=== PATIENT | female | born 1945 | race Caucasian/White ===

== ENCOUNTER 2016-08-07 12:32 | Inpatient (IN) | payer OTHER, MEDICARE ==
[~2016-08-07] VITALS: Ht 154.9 cm; Wt 52.2 kg
[~2016-08-07 12:32] MED LIST: ASPIRIN EC81 M1 PO; ATORVASTATIN CA40 M1 PO; CELEXA10 M1 PO; CENTRUM SILVER1 EAC3 PO; CITALOPRAM HBR20 MG PO; COUMADIN2.5 M1 PO; COZAAR25 M1 PO; DEXAMETHASONE4 M1 PO; HYDROCHLOROTH12.5 M2 PO; HYDROCODONE-HO473 ML PO; LASIX20 M1 PO; LIPITOR80 M1 PO; LOSARTAN POTAS100 M1 PO; LOVENOX80 MG/0.1 SC; METOPROLOL SUCC50 M2 PO; MORPHINE SULFAT15 M4 PO; PANTOPRAZOLE SO40 M1 PO; VERAPAMIL ER240 M1 PO
--- NOTE | 2016-08-07 13:00 | NUR ---
PT TO ROOM22 FOR C/O SOB SINCE THIS MORNING, O2SAT 97% ON RA, PT SPEAKS FULL SENTENCES, VSS, PT DENIES CHEST PAIN,ABD PAIN,N/V/D. AAOx3. HX OF LUNG CA, HNT,CVA. MARAL MARIE AT BEDSIDE FOR PT EVAL.
--- NOTE | 2016-08-07 13:14 | NUR ---
PT EVALUATED BY MD CARSON
--- NOTE | 2016-08-07 13:18 | ED DYSPNEA/ASTHMA COMPLAINT ---
History of Present Illness General Chief Complaint: Dyspnea (COPD, CHF, Other) Stated Complaint: SOB Source: patient, family, old records Exam Limitations: no limitations Vital Signs & Intake/Output Vital Signs & Intake/Output Vital Signs Date Time Temp Pulse Resp B/P Pulse O2 O2 Flow FiO2 Ox Delivery Rate 08/09 0934 95 120/80 08/09 0931 95 120/80 08/09 0921 98.2 95 20 120/80 91 Nasal 1.5L Cannula 08/09 0827 95 Nasal 2.0L Cannula 08/09 0800 91 Nasal 2.0L Cannula 08/08 2231 95 Nasal 2.0L Cannula 08/08 2200 97.8 78 20 110/70 96 08/08 1530 98.2 91 20 102/60 91 Nasal 2.0L Cannula ED Intake and Output 08/09 0000 08/08 1200 Intake Total 1392.3 304 Output Total Balance 1392.3 304 Intake, IV 122.3 104 Intake, Oral 1270 200 Allergies Coded Allergies: oxycodone (From Percocet) (UNKNOWN 12/01/15) PERCOCET PER ANTIBIOTIC ORDER SHEET OF 12/01/15 ([facility]) Triage Note: PT TO ROOM22 FOR C/O SOB SINCE THIS MORNING, O2SAT 97% ON RA, PT SPEAKS FULL SENTENCES, VSS, PT DENIES CHEST PAIN,ABD PAIN,N/V/D. AAOx3. HX OF LUNG CA, HNT,CVA. MARAL MARIE AT BEDSIDE FOR PT EVAL. Triage Nurses Notes Reviewed? yes Onset: Abrupt Duration: hour(s): (6), constant Timing: recent history Severity: moderate Prior Episodes/Possible Cause: occasional episodes Modifying Factors: Worsens With: movement. Associated Symptoms: denies HPI: 71 Year old female with history of lung ca undergoing radiation, with mets to brain, hypertension, hyperlipidemia, presents emergency room for evaluation today with family complaining of sudden onset shortness of breath that came on earlier this morning. She states that she used her 's albuterol nebulizer twice with mild improvement. The patient states that she has had intermittent outs of hemoptysis most recent lesion yesterday. The patient was radiation every day, and she is scheduled to go for a port in to be and chemotherapy next week. Patient denies any chest pain or pain with inspiration. The dyspnea is worse with exertion. She denies any leg swelling, fever chills she is currently Lovenox injections at home daily. Oncology is Dr. MARA Beck allergy Dr. Spaulding (FRANK ALICIA,AGGIE) Reconcile Medications Aspirin (Ecotrin*) 81 MG TABLET.DR 1 TAB PO DAILY HEART/BLOOD (Reported) Atorvastatin Calcium (Lipitor) 80 MG TABLET 1 TAB PO DAILY CHOLESTEROL ( Reported) Citalopram Hydrobromide (Citalopram HBr) (Unknown Strength) TABLET (Unknown Dose) PO DAILY MENTAL HEALTH (Reported) Enoxaparin Sodium (Lovenox) 80 MG/0.8 ML SYRINGE 0.8 ML SC DAILY BLOOD THINNER (Reported) Furosemide (Lasix) 20 MG TABLET 3 TAB PO DAILY DIURETIC (Reported) Hydrocodone Bit/Homatrop Me-Br (Hydrocodone-Homatropine Syrup) (Unknown Strength ) SYRUP (Unknown Dose) PO Q4H PRN COUGH (Reported) Losartan Potassium (Cozaar) 25 MG TABLET 0.5 TAB PO DAILY HEART/BP (Reported) Metoprolol Succinate 50 MG TAB.ER.24H 1 TAB PO DAILY HEART/BP (Reported) Morphine Sulfate 15 MG TABLET 1 TAB PO Q4H PRN PAIN (Reported) Multivit-Min/FA/Lycopen/Lutein (Centrum Silver Tablet) 0.4 MG-300 MCG-250 MCG TABLET 1 TAB PO DAILY SUPPLEMENT (Reported) Pantoprazole Sodium 40 MG TABLET. 1 TAB PO DAILY GI (Reported) (CARSON LEON,YANET) Past History Travel History Traveled to [place] past 21 day No Medical History Any Pertinent Medical History? 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 No (AGGIE MONTEJO) Review of Systems Review of Systems Constitutional: Reports: see HPI. All Other Systems: Reviewed and Negative Comments Review of systems: See HPI, All other systems negative. Constitutional, no chills no fever, no malaise HEENT: No visual changes no sore throat no congestion, no ear pain Cardiovascular: No chest pain , no palpitation , no orthopnea no ankle swelling Skin, no rashes, no change in skin Respiratory: dyspnea no cough no sputum hemoptysis GI: No nausea no vomiting, no diarrhea, no bloating/constipation : No dysuria Muscle skeletal: No joint pain, no back pain, no neck pain, Neurologic: No numbness no headache Psych: No stress Heme/endocrine: No bruising no bleeding Immunology: No lymphadenopathy (AGGIE MONTEJO) Physical Exam Physical Exam General Appearance: well developed/nourished, alert, awake Respiratory: normal breath sounds, chest non-tender, no respiratory distress, lungs clear Comments: Well-developed well-nourished person in no acute distress HEENT: Normal EENT exam; PERRL, EOMI, HEAD is atraumatic. moist mucous membranes. Neck: Supple, no lymphadenopathy, normal range of motion Back: Nontender, no CVA tenderness. Full range of motion Cardiovascular: Regular rate and rhythms no murmurs rubs Respiratory: Chest nontender.There were no bony deformities, no asymmetry. No respiratory distress. Patient speaking in full complete sentences. Breath sounds clear to auscultation bilaterally: NO W/R/R Abdomen: Soft, nontender nondistended, no appreciable organomegaly. Normal bowel sounds. No rebound/guarding,, No ascites. Extremity: No edema, full range of motion of extremities Neuro: Alert oriented x3, motor sensory normal, Skin: No appreciable rash on exposed skin, skin is warm and dry. Psych: Mood and affect is normal, memory and judgment is normal. Core Measures ACS in differential dx? Yes Severe Sepsis Present: No Septic Shock Present: No (AGGIE MONTEJO) Progress Differential Diagnosis: asthma, AMI, bronchitis, costochondritis, CHF, COPD, musculoskeletal pain, pericarditis, pulmonary embolism, pneumonia, pneumothorax, unstable angina Plan of Care: Orders Procedure Date/time Status Change service to 08/09 1032 Active Change service to 08/09 0841 Active PT Evaluate & Treat 08/09 UNK Active Therapeutic Exercise 08/09 UNK Complete PT Eval 08/09 UNK Complete Gait Training 08/09 UNK Complete OXYGEN 08/08 UNK Complete OXYGEN DAILY CHARGE 08/08 UNK Complete OXYGEN SETUP CHG 08/07 UNK Complete OXYGEN 08/07 UNK Complete OXYGEN TRANSPORT 08/07 UNK Complete Current Medications Sig/Georgi Start time Last Medication Dose Stop Time Status Admin Albuterol Sulfate 3 ML Q4P PRN 08/08 1400 AC (Proventil) Senna/Docusate Sodium 1 TAB BID PRN 08/08 1246 AC (Senokot S) Bisacodyl 5 MG DAILY NEEDED PRN 08/08 1200 AC (Dulcolax) Laboratory Tests 08/09/16 0610: Anion Gap 11, Estimated GFR > 60, BUN/Creatinine Ratio 15.7, Magnesium 1.7, CBC w Diff NO MAN DIFF REQ, RBC 3.22 L, MCV 93.1, MCH 31.3 H, RDW 16.9 H, MPV 7.8 , Gran % 76.1 H, Lymphocytes % 11.8 L, Monocytes % 9.4 H, Eosinophils % 2.3, Basophils % 0.4, Absolute Granulocytes 6.0, Absolute Lymphocytes 0.9 L, Absolute Monocytes 0.7 H, Absolute Eosinophils 0.2, Absolute Basophils 0, PUBS MCHC 33.6 Labs ordered old records reviewed. Case was discussed with Dr. Arriaga who evaluated the patient and agrees with plan 08/07/2016 2:25:29 PM patient's room and states she is feeling short of breath noted be 98% on 2 L lungs are clear, DuoNeb ordered Patient feeling improved I discussed with her and her family called the CAT scan findings and incidental findings. The patient states her breathing has been improved since being medicated with Xanax. Case was discussed with Dr. Arriaga. Heparin ordered case discussed with Dr. EGAN WILL ADMIT (FRANK ALICIA,AGGIE) Diagnostic Imaging: Viewed by Me: CT Scan. Discussed w/RAD: CT Scan. Radiology Impression: PATIENT: ALISIA WILBURN PRESENT AGE: 71 PATIENT ACCOUNT NO: [id number] : 44 LOCATION: [facility] ORDERING PHYSICIAN: AGGIE ALICIA SERVICE DATE: 08/07/16 EXAM TYPE: CAT - CT ABD ANGIOGRAM; CTA CHEST-PULMONARY EMBOLISM EXAMINATION: CTA CHEST AND ABDOMEN CLINICAL INFORMATION: History of abdominal aortic aneurysm. Dyspnea. Evaluate for dissection. COMPARISON: Previous chest, abdomen and pelvis CTA June 2016 and PET/CT June 2016. TECHNIQUE: Axial images through the chest, abdomen and pelvis following 95 mL Optiray 320 intravenous contrast. Sagittal and coronal reconstructions on the technologist workstation were performed. Patient dose 219 + 255 mGy/cm. FINDINGS: There is mild dilatation of the ascending thoracic aorta , measuring 4 x 4.1 cm. This appears unchanged. The aortic arch measures 2.5 cm in the descending thoracic aorta measures 2.8 cm. There is some thrombus seen in the anterior distal descending thoracic aorta. No thoracic aortic dissection is seen. There is again question of chronic dissection of the proximal abdominal aorta. The thrombus are unopacified segment of the proximal abdominal aorta appears increased compared to June 2016 exam, for example axial image 21 series 3 compared to axial image 61 series 8. The size of the aorta does not appear changed measuring 3.2 x 2.7 cm. There is fusiform dilatation of the more inferior mid and distal abdominal aorta. The circumferential thrombus in the mid and distal abdominal aorta appears increased as well, for example axial image 32 series, 3 compared to axial image 73 series 06/14/2016 exam. The size of the mid and distal abdominal aorta does not appear changed measuring maximum 3 x 3 cm. There is direct origin of the left vertebral artery from the aortic arch. Great vessel origins are patent. The pulmonary arteries are upper normal in size. There is narrowing of the left lower lobe pulmonary artery from adenopathy. There is a small filling defect seen in subsegmental posterior basal segment right lower lobe pulmonary arteries axial image 300-310 series 2 suggestive of a small pulmonary embolus. This is against the wall of the vessel and may not be acute. No other evidence of pulmonary embolism is seen. There is an arcuate type stenosis of the celiac axis. The SMA is patent. The JOAQUIN is not identified. 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 There is a single patent left renal artery. The visualized common iliac arteries are normal in caliber and patent. CHEST: The lesion in the superior segment of the left lower lobe is slightly decreased in size. This measures 1.2 x 1.6 cm compared to 1.3 x 2.9 cm on previous exam. There is increasing volume loss to the left upper lobe and lingular atelectasis. There is an increasing 8 mm right lower lobe nodule along the diaphragmatic pleural surface. There is increasing mediastinal and left hilar adenopathy in the left paratracheal and precarinal regions. There is increased narrowing of the left upper lobe bronchus. There is narrowing of the left lower lobe pulmonary artery from increasing left hilar adenopathy. There is coronary artery calcification. There is no pleural or pericardial effusion. No chest wall mass or axillary adenopathy is seen. ABDOMEN: The liver, spleen, pancreas, and adrenal glands are unremarkable. The gallbladder has been removed. The right kidney appears atrophic. There are several right renal cysts. There is evidence of mild diverticulosis. Small and large bowel is otherwise unremarkable. There is diastasis of the rectus muscles. Small and large bowel is unremarkable. No ascites or adenopathy is seen. There is a lytic lesion in the left iliac crest that is partially visualized on the most inferior image axial image 52 series 3 and 414-416 series 2 that is increased. There is permeative lytic disease involving the tip of the right scapula. There is a lytic lesion in the anterior superior endplate of the T4 vertebral body that appears increased. There is a small lytic lesion in the T9 vertebral body that appears new. There are increasing faint sclerotic lesions in the L1 and L2 vertebral bodies. There is also question of several new small lytic lesions, for example in the L3 vertebral body axial image 31 series 3 and the left iliac bone axial image 47 series 3. IMPRESSION: Stable dilatation of the ascending thoracic aorta. No acute thoracic aortic dissection. Question old chronic dissection of the proximal abdominal aorta. This is stable in size with increasing thrombus compared to June 2016 exam. 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 The size of the aortic dilatation does not appear appreciably changed measuring maximum 3 x 3.2 cm. 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 Arcuate type celiac axis stenosis. Narrowed left lower lobe pulmonary artery from increasing adenopathy. Small subsegmental posterior basal segment right lower lobe pulmonary emboli. CHEST: Interval decrease in size in the superior segment left lower lobe nodule compared to June 2016. There is increasing left-sided mediastinal and hilar adenopathy. There is increased narrowing of the left upper lobe bronchus and left upper lobe atelectasis. Increasing right lower lobe pulmonary nodule. ABDOMEN: Diastasis of the rectus muscles. Atrophic right kidney. Right renal cysts. Interval increase in size and number of bony lesions compared to previous CT. Findings were communicated to Aggie Marie by telephone 08/07/2016 at 4:13 PM. DICTATED BY: MANUEL LEON,ILIANA Fischer DATE/TIME DICTATED:08/07/161454 CLIENT RELATIONS SPECIALIST:ERICA DATE/TIME TRANSCRIBED:08/07/161454 CONFIDENTIAL, DO NOT COPY WITHOUT APPROPRIATE AUTHORIZATION. <Electronically signed in Other Vendor System> SIGNED BY: ILIANA JACKSON MD 08/07/16 1621 Initial ED EKG: NSR AT 90, NONSPECIFIC ST SEG CHANGES, NORMAL AXIS Prior EKG: unchanged (06/2016) Rhythm Strip: normal sinus rhythm (AGGIE MONTEJO) Departure Departure Time of Disposition: 163 Disposition: STILL A PATIENT Condition: Stable Clinical Impression Primary Impression: Pulmonary embolus Secondary Impressions: Aortic aneurysm, Lesion of lung Referrals: CONLEY JOSÉ MIGUEL LEON (PCP/Family) Referred to [facility] as new patient No Departure Forms: Customer Survey General Discharge Information Admission Note Spoke With: EZKE EGAN M.D Documentation of Exam: Documentation of any treatments & extenuating circumstances including Concerns Regarding Discharge (functional status, medication knowledge or non-compliance, living conditions, etc.) that warrant an admission rather than observation: Pulmonology cardiology oncology consult IV heparin trend labs premature discharge medically harmful given new pulmonary embolism (AGGIE MONTEJO) PA/COUPLER Co-Sign Statement Statement: ED Attending supervision documentation- [X] I saw and evaluated the patient. I have also reviewed all the pertinent lab results and diagnostic results. I agree with the findings and the plan of care as documented in the PA's/COUPLER's documentation. [X] I have reviewed the ED Record and agree with the PA's/COUPLER's documentation. [] Additions or exceptions (if any) to the PAs/COUPLER's note and plan are summarized below: [] (CARSON LEON,YANET) Critical Care Note Critical Care Note Critical Care Time: non-applicable (AGGIE MONTEJO)
[2016-08-07 14:01] LABS: ABSOLUTE BASOPHIL COUNT 0 /CUMM (0.0-0.2); ABSOLUTE EOSINOPHIL COUNT 0 /CUMM (0.0-0.7); ABSOLUTE GRANULOCYTE CT 7.8 /CUMM (1.4-6.5); ABSOLUTE MONOCYTE COUNT 0.6 /CUMM (0.10-0.60); BASOPHIL % 0.1 % (0.0-2.0); EOSINOPHIL % 0.4 % (0-5); GRANULOCYTE % 82.7 % (42.2-75.2); HEMATOCRIT 32.8 % (37-47); MEAN CORPUSCULAR HGB 31.2 PG (27.0-31.0); MEAN CORPUSCULAR HGB CONC 33.6 G/DL (33.0-37.0); MEAN CORPUSCULAR VOLUME 92.9 FL (81.0-99.0); MEAN PLATELET VOLUME 7.6 FL (7.4-10.4); PLATELET COUNT 477 /CUMM (130-400); RBC DISTRIBUTION WIDTH 16.5 % (11.5-14.5); RED BLOOD CELL CT 3.53 /CUMM (4.20-5.40); WHITE BLOOD CELL COUNT 9.4 /CUMM (4.8-10.8)
[2016-08-07 14:04] LABS: PT 10.7 SEC (9.4-12.5); PTT 24 SEC (25-37)
--- NOTE | 2016-08-07 14:21 | NUR ---
RESP AT BEDSIDE FOR TX.
--- NOTE | 2016-08-07 14:41 | NUR ---
PT TO CAT SCAN BY STRETCHER.
--- NOTE | 2016-08-07 16:21 | CT SCAN REPORT ---
EXAMINATION: CTA CHEST AND ABDOMEN CLINICAL INFORMATION: History of abdominal aortic aneurysm. Dyspnea. Evaluate for dissection. COMPARISON: Previous chest, abdomen and pelvis CTA June 2016 and PET/CT June 2016. TECHNIQUE: Axial images through the chest, abdomen and pelvis following 95 mL Optiray 320 intravenous contrast. Sagittal and coronal reconstructions on the technologist workstation were performed. Patient dose 219+ 255 mGy/cm. FINDINGS: There is mild dilatation of the ascending thoracic aorta, measuring 4 x 4.1 cm. This appears unchanged. The aortic arch measures 2.5 cm in the descending thoracic aorta measures 2.8 cm. There is some thrombus seen in the anterior distal descending thoracic aorta. No thoracic aortic dissection is seen. There is again question of chronic dissection of the proximal abdominal aorta. The thrombus are unopacified segment of the proximal abdominal aorta appears increased compared to June 2016 exam, for example axial image 21 series 3 compared to axial image 61 series 8. The size of the aorta does not appear changed measuring 3.2 x 2.7 cm. There is fusiform dilatation of the more inferior mid and distal abdominal aorta. The circumferential thrombus in the mid and distal abdominal aorta appears increased as well, for example axial image 32 series, 3 compared to axial image 73 series 06/14/2016 exam. The size of the mid and distal abdominal aorta does not appear changed measuring maximum 3 x 3 cm. There is direct origin of the left vertebral artery from the aortic arch. Great vessel origins are patent. The pulmonary arteries are upper normal in size. There is narrowing of the left lower lobe pulmonary artery from adenopathy. There is a small filling defect seen in subsegmental posterior basal segment right lower lobe pulmonary arteries axial image 300-310 series 2 suggestive of a small pulmonary embolus. This is against the wall of the vessel and may not be acute. No other evidence of pulmonary embolism is seen. There is an arcuate type stenosis of the celiac axis. The SMA is patent. The JOAQUIN is not identified. 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 There is a single patent left renal artery. The visualized common iliac arteries are normal in caliber and patent. CHEST: The lesion in the superior segment of the left lower lobe is slightly decreased in size. This measures 1.2 x 1.6 cm compared to 1.3 x 2.9 cm on previous exam. There is increasing volume loss to the left upper lobe and lingular atelectasis. There is an increasing 8 mm right lower lobe nodule along the diaphragmatic pleural surface. There is increasing mediastinal and left hilar adenopathy in the left paratracheal and precarinal regions. There is increased narrowing of the left upper lobe bronchus. There is narrowing of the left lower lobe pulmonary artery from increasing left hilar adenopathy. There is coronary artery calcification. There is no pleural or pericardial effusion. No chest wall mass or axillary adenopathy is seen. ABDOMEN: The liver, spleen, pancreas, and adrenal glands are unremarkable. The gallbladder has been removed. The right kidney appears atrophic. There are several right renal cysts. There is evidence of mild diverticulosis. Small and large bowel is otherwise unremarkable. There is diastasis of the rectus muscles. Small and large bowel is unremarkable. No ascites or adenopathy is seen. There is a lytic lesion in the left iliac crest that is partially visualized on the most inferior image axial image 52 series 3 and 414-416 series 2 that is increased. There is permeative lytic disease involving the tip of the right scapula. There is a lytic lesion in the anterior superior endplate of the T4 vertebral body that appears increased. There is a small lytic lesion in the T9 vertebral body that appears new. There are increasing faint sclerotic lesions in the L1 and L2 vertebral bodies. There is also question of several new small lytic lesions, for example in the L3 vertebral body axial image 31 series 3 and the left iliac bone axial image 47 series 3. IMPRESSION: Stable dilatation of the ascending thoracic aorta. No acute thoracic aortic dissection. Question old chronic dissection of the proximal abdominal aorta. This is stable in size with increasing thrombus compared to June 2016 exam. 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 The size of the aortic dilatation does not appear appreciably changed measuring maximum 3 x 3.2 cm. 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 Arcuate type celiac axis stenosis. Narrowed left lower lobe pulmonary artery from increasing adenopathy. Small subsegmental posterior basal segment right lower lobe pulmonary emboli. CHEST: Interval decrease in size in the superior segment left lower lobe nodule compared to June 2016. There is increasing left-sided mediastinal and hilar adenopathy. There is increased narrowing of the left upper lobe bronchus and left upper lobe atelectasis. Increasing right lower lobe pulmonary nodule. ABDOMEN: Diastasis of the rectus muscles. Atrophic right kidney. Right renal cysts. Interval increase in size and number of bony lesions compared to previous CT. Findings were communicated to Roverto Santana by telephone 08/07/2016 at 4:13 PM.
--- NOTE | 2016-08-07 17:17 | NUR ---
PT ADMITTED TO ROOM 209-2
--- NOTE | 2016-08-07 17:43 | Admission Certification ---
Admission Certification Certification Statement - As attending physician, I certify that at the time of - admission, based on clinical presentation, severity of - symptoms, need for further diagnostic testing and - therapeutic interventions, and risk of adverse outcomes - without in-hospital treatment, in my clinical assessment, - this patient requires an acute hospital stay for a minimum - of two nights or longer. I have also considered psychsocial - factors such as support system, advanced age, financial - issues, cognitive issues, and failed out-patient treatments, - past re-admission history, safety of patient, and lack of - compliance as applicable. Specific rationale supporting this admission is: Patient requires intravenous heparin for management of her pulmonary embolism. She requests further evaluation by the oncology and pulmonary service.
--- NOTE | 2016-08-07 17:59 | History & Physical ---
NATO COMBS MD 08/07/16 1758: General Information and [facility] MD Statement: I have seen and personally examined ALISIA WILBURN and documented this H&P. The patient is a 71 year old F who presented with a patient stated chief complaint of [shortness of breath with episode of intermittent hemoptysis]. 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 At the beginning of July 2016 patient underwent repeat MRI for brain metastases and found to have brain arterial clot and as per hematology patient anticoagulation was switched to Lovenox. Patient was at her usual health up until last Monday, when she underwent her fourth radiation treatment for her shoulder after which she complained of epigastric discomfort and was started on Magic mouthwash with significant symptom improvement. Patient has been having chronic nonproductive cough with intermittent hemoptysis for possible 2 months due to her underlying lung cancer. Yesterday night she got more short of breath than usual with subsequent improvement in her symptoms. This morning she remained short of breath and received 2 albuterol nebulizer treatment with minimal symptom improvement. This afternoon she had a little amount of soup and lunch after which she started feeling nauseous and had small non-bloody vomiting. Due to her persistent shortness of breath and nausea patient was brought in to ER for further evaluation. In ER, patient noted having mild shortness of breath with no residual nausea or vomiting. Her O2 sat noted 95% on room air. Due to history of lung cancer patient underwent CTA of abdomen and chest noted with right lower lobe pulmonary artery subsegmental PE with worsening tumor burden, also noted atrophic right kidney with chronic right renal artery occlusion. Patient denied any chest pain, palpitation, dizziness, lightheadedness, nausea, vomiting, abdominal pain, urinary symptoms one time of interview. Patient's family was at bedside. As per patient's patient supposed to finish 10 radiation treatment for her shoulder lesion by 16 of August and scheduled to have port placement for chemotherapy on 08/17/2016. Patient's oncologist is Dr. Curry Radiation oncologist Dr. Gracia Gravel Weigher Dr. Spaulding Allergies/Medications Allergies: Coded Allergies: oxycodone (From Percocet) (UNKNOWN 12/01/15) PERCOCET PER ANTIBIOTIC ORDER SHEET OF 12/01/15 (SJS) Home Med list Aspirin (Ecotrin*) 81 MG TABLET.DR 1 TAB PO DAILY HEART/BLOOD (Reported) Atorvastatin Calcium (Lipitor) 80 MG TABLET 1 TAB PO DAILY CHOLESTEROL ( Reported) Citalopram Hydrobromide (Citalopram HBr) (Unknown Strength) TABLET (Unknown Dose) PO DAILY MENTAL HEALTH (Reported) Enoxaparin Sodium (Lovenox) 80 MG/0.8 ML SYRINGE 0.8 ML SC DAILY BLOOD THINNER (Reported) Furosemide (Lasix) 20 MG TABLET 3 TAB PO DAILY DIURETIC (Reported) Hydrocodone Bit/Homatrop Me-Br (Hydrocodone-Homatropine Syrup) (Unknown Strength ) SYRUP (Unknown Dose) PO Q4H PRN COUGH (Reported) Losartan Potassium (Cozaar) 25 MG TABLET 0.5 TAB PO DAILY HEART/BP (Reported) Metoprolol Succinate 50 MG TAB.ER.24H 1 TAB PO DAILY HEART/BP (Reported) Morphine Sulfate 15 MG TABLET 1 TAB PO Q4H PRN PAIN (Reported) Multivit-Min/FA/Lycopen/Lutein (Centrum Silver Tablet) 0.4 MG-300 MCG-250 MCG TABLET 1 TAB PO DAILY SUPPLEMENT (Reported) Pantoprazole Sodium 40 MG TABLET. 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 Exam & Diagnostic Data Last 24 Hrs of Vital Signs/I&O Vital Signs Date Time Temp Pulse Resp B/P Pulse O2 O2 Flow FiO2 Ox Delivery Rate 08/07 1902 98.0 99 20 142/87 99 Nasal 2.0L Cannula 08/07 1557 95 16 160/76 94 Nasal 2.0L Cannula 08/07 1433 95 Nasal 2.0L Cannula 08/07 1256 96.2 91 20 150/79 97 Room Air Intake & Output 08/07 1600 08/07 0800 08/07 0000 Intake Total Output Total Balance Patient 115 lb Weight Physical Exam General Appearance Alert, Oriented X3, Cooperative, Mild Distress Skin No Rashes HEENT Atraumatic, PERRLA, EOMI, Mucous Membr. moist/pink Neck Supple Cardiovascular Regular Rate, Normal S1, Normal S2, No Murmurs Lungs Normal Air Movement, occasional wheezing on lung exam Abdomen Normal Bowel Sounds, Soft, No Tenderness Neurological Normal Speech, Strength at 5/5 X4 Ext, Normal Tone, Sensation Intact, Cranial Nerves 3-12 NL Extremities No Edema, Normal Pulses Vascular Normal Pulses, Pulses Symmetrical Last 24 Hrs of Labs/Yusuf: Laboratory Tests 08/07/16 1340: Anion Gap 14, Estimated GFR > 60, BUN/Creatinine Ratio 17.5, Glucose 152 H, Calcium 9.0, Total Bilirubin 0.5, AST 30, ALT 48, Alkaline Phosphatase 190 H, Troponin I 0.04, Wpv-O-Dvgqoyfmrtk Pept 2510 H, Total Protein 6.1 L, Albumin 3.5, Globulin 2.6, Albumin/Globulin Ratio 1.3, PT 10.7, INR 1.02, APTT 24 L, CBC w Diff NO MAN DIFF REQ, RBC 3.53 L, MCV 92.9, MCH 31.2 H, RDW 16.5 H, MPV 7.6, Gran % 82.7 H, Lymphocytes % 10.4 L, Monocytes % 6.4, Eosinophils % 0.4, Basophils % 0.1, Absolute Granulocytes 7.8 H, Absolute Lymphocytes 1.0 L, Absolute Monocytes 0.6, Absolute Eosinophils 0, Absolute Basophils 0, PUBS MCHC 33.6 Diagnostic Data EKG Results Normal sinus rhythm with heart rate of 96, normal axis, unchanged inferior T- wave flattening and Q-wave, lateral T-wave inversion less prominent than previous EKG, QTC [address] ABD ANGIOGRAM; CTA CHEST-PULMONARY EMBOLISM: Stable dilatation of the ascending thoracic aorta. No acute thoracic aortic dissection. Question old chronic dissection of the proximal abdominal aorta. This is stable in size with increasing thrombus compared to June 2016 exam. 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 The size of the aortic dilatation does not appear appreciably changed measuring maximum 3 x 3.2 cm. 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 Arcuate type celiac axis stenosis. Narrowed left lower lobe pulmonary artery from increasing adenopathy. Small subsegmental posterior basal segment right lower lobe pulmonary emboli. CHEST: Interval decrease in size in the superior segment left lower lobe nodule compared to June 2016. There is increasing left-sided mediastinal and hilar adenopathy. There is increased narrowing of the left upper lobe bronchus and left upper lobe atelectasis. Increasing right lower lobe pulmonary nodule. ABDOMEN: Diastasis of the rectus muscles. Atrophic right kidney. Right renal cysts. Interval increase in size and number of bony lesions compared to previous CT. Assessment/Plan Assessment: This is 71-year-old female with past medical history of stage IV non-small cell lung cancer with metastases to brain status post gamma knife radiation, bony metastatic disease status post 10 cycle of radiation treatment for lower back and ongoing /10 radiation treatment for shoulder with most recent radiation on 08/05/2016, history of recently diagnosed occult Sobo cardiomyopathy with intraoperative cardiac clot resulting in cerebellar hematoma treated with warfarin and subsequently diagnosed with brain artery occlusion requiring to change anticoagulation to Lovenox, who has chronic cough with hemoptysis for past 2 months due to underlying lung condition presented from home after an episode of mild shortness of breath with an episode of nausea and one episode of nonbloody vomiting found to have subsegmental PE without no significant hypoxia on admission are no significant clot burden suggestive of incidental finding rather than clinical pulmonary embolism. 1. Pulmonary embolism Patient did not have any significant hypoxia, tachypnea or tachycardia on admission and her history of recent blood clots in her heart resulting in cerebellar stroke and subsequently found to have brain artery clot requiring to change anticoagulation to Lovenox and now CTAs finding of subsegmental PE, likely suggest incidental finding of pulmonary embolism of indeterminant age rather than acute PE as patient was on therapeutic dose of Lovenox. Less likely Lovenox failure as intact case one would see larger clot burden than smaller. - Admitted to telemetry - Supplement O2 - TRC - Patient was started on IV heparin GTT as per ER, will continue IV heparin GTT but most likely patient needs to switch back to her therapeutic Lovenox treatment. We'll touch base with him with oncology For the recommendation - Nonurgent him on consult 2. History of Takotsubo cardiomyopathy with EF of 25% - Continue anticoagulation - Continue metoprolol - Cardiology consult in a.m., repeat echo as per cardiology discretion - Serial troponin and EKG - Continue aspirin 3. Hypertension - Continue home dose losartan and metoprolol 4. Hyperlipidemia Continue Lipitor 80 mg 5. History of stroke Continue aspirin and statin 6. Hypokalemia Repleat potassium 7. DVT prophylaxis IV heparin As Ranked By This Provider Problem List: 1. Pulmonary embolus Core Measures/Miscellaneous Acute Coronary Syndrome ACS Diagnosis: No Cerebrovascular Accident CVA/TIA Diagnosis: No Congestive Heart Failure CHF Diagnosis: Yes Date of most recent Echo: 06/08/16 Last Known EF %: 25 LILIA/ARB for EF <40%: Yes Venous Thromboembolism VTE Risk Factors: Age > 40, Malignancy Myelo Disorder VTE Prophylaxis Ordered Inpt: Pharm- Heparin No [facility] VTE prophylaxis d/t: No contraindications No VTE Pharm Prophylaxis d/t: No contraindications VTE Diagnosis: Yes VTE Type: Pulmonary Embolism VTE Confirmed by (Test): CT CHEST ANGIOGRAM Severe Sepsis Severe Sepsis Present: No BC x2: Yes Lactic Acid x2: Yes IV ABX Broad Spectrum: Yes Septic Shock Septic Shock Present: No Miscellaneous Documentation Attending Case Discussed With: ZEKE EGAN M.D Primary Care Physician: JOSÉ MIGUEL CONLEY MD Patient sees these Specialists Oncology Dr. Curry Radiation oncology Dr. Gracia Cardiology Dr. Spaulding Level of Patient Care: Telemetry Consults Needed: 1 Consulting Specialty: Hematology/Oncology Consulting Physician: Dr. Curry Reason for Consult: stage IV lung cancer Consults Needed: 2 Consulting Specialty: Cardiology Consulting Physician: Dr. Spaulding Reason for Consult: takotsubo cardiomyopathy Resident Review Statement Resident Statement: examined this patient, discussed with family, reviewed EMR data (avail), reviewed images, amended to note Other Findings: see HPI ZEKE EGAN MD 08/07/16 1811: Attending Review Statement Attending Statement Attending MD Statement: examined this patient, discuss w/resident/PA/MINES SAFETY ENGINEER, agreed w/resident/PA/MINES SAFETY ENGINEER, discussed with family, reviewed EMR data (avail), discussed with nursing, amended to note Attending Assessment/Plan: 71-year-old female recently diagnosed with pulmonary carcinoma with diffuse mental stasis. He status post 10 sessions of radiation therapy to the lumbosacral area for bone metastases has received 4 out of 10 sessions of radiation therapy to the upper chest wall negative for metastatic disease. Reports that since discharge from the hospital last month she has been lethargic. She has had a nonproductive cough since then. Family reports that patient occasionally becomes acutely short of breath however this at base spontaneously and with use of bronchodilator therapy. She has similar episodes overnight but more frequently according to the . This morning she became nauseous and had an episode of small amount of vomitus which point decided to bring her to the hospital for evaluation. There has been no report of fever or chills. She denies any chest pain. She denies difficulty swallowing. She is also on anticoagulation therapy with Lovenox due to thromboembolic disease. She arrived to the ER afebrile and hemodynamically stable. CT scan was done for further evaluation and revealed Interval decrease in size in the superior segment left lower lobe nodule compared to June 2016. There is increasing left-sided mediastinal and hilar adenopathy. There is increased narrowing of the left upper lobe bronchus and left upper lobe atelectasis. Increasing right lower lobe pulmonary nodule. Interval increase in size and number of bony lesions compared to previous CT. Small subsegmental posterior basal segment right lower lobe pulmonary emboli. Based on the CT scan finding of pulmonary embolism, patient was started on intravenous heparin by the ER staff and referred to the hospitalist service for further evaluation and management. Whenever the to the patient and her father resting comfortably and not in any acute distress. When questioned about her dyspnea she admits to feeling short of breath on and off but reported feeling well present. She complains of occasional cough. She denies chest pain. She denies palpitations. She denies any dysphagia or odynophagia. She denies any fever or chills. She is scheduled to complete her radiation therapy next week and begin chemotherapy thereafter with Eyal Robins MD. Gen. appearance: Not in acute distress Heart: S1-S2 regular Lungs: Fair entry bilaterally, no added sounds Abdomen: Soft, nontender with normal bowel sounds Extremities: No pedal edema Skin: Intact with no rashes Neurologic: Alert and erythematous 3 with no focal deficits. Also noted on her CT scan are question of old chronic dissection of the proximal abdominal aorta stable in size with increasing thrombosis. Stable abdominal aortic aneurysm with increasing thrombosis. Atrophic right kidney and chronically occluded right renal artery. Celiac axis stenosis. Narrowed left lower lobe pulmonary artery from increase in adenopathy. Problems: 1. Dyspnea; likely secondary to underlying pulmonary malignancy. 2. Incidental finding of small subsegmental pulmonary embolism. 3. Metastatic cancer 4. Chronic pain syndrome secondary to above. 5. Diffuse thrombotic disease on anticoagulation with Lovenox Plan: -Admit to the inpatient general medical service. -Continue oxygen supplementation for symptom relief. Bronchodilator therapy with CRC. -Recommend evaluation by the pulmonary and oncology service. -The small subsegmental pulmonary embolism finding appears to be incidental and less likely the cause of her recurrent shortness of breath. The acuity of the pulmonary embolism is unclear. This does not appear to be a clear case of anticoagulation failure. She however has been started on heparin infusion in the emergency room. We will continue this regimen until evaluation by the oncology service. She will likely continue to require anticoagulation therapy with Lovenox upon discharge. -Family reports occasional incidents of hemoptysis of small amount. I hemoglobin level is stable. We'll continue to monitor while she receives anticoagulation therapy. -Continue her home pain regimen. The inpatient on a bowel regimen to prevent opioid-induced constipation. -Patient to follow-up with her oncologist service to discuss further goals of care. Family reports having had an extensive conversation with Eyal Robins MD on 2 occasions quite recently. As at the time of the conversation thier desire was to pursue palliative radiation therapy and chemotherapy.
--- NOTE | 2016-08-07 19:30 | NUR ---
PER REPORT PT NOW TO GO TO TELE. HEPARIN DRIP INFUSING.
--- NOTE | 2016-08-07 19:30 | NUR ---
PT UPGRADED TO TELE
--- NOTE | 2016-08-07 20:30 | NUR ---
DR COMBS AT 017 CONTACTED RE BP AND NEED FRO BOTH BP MEDS SINCE PT TOOK THEM THIS AM.
--- NOTE | 2016-08-07 20:58 | NUR ---
BED ASSIGNED 171
--- NOTE | 2016-08-07 21:11 | NUR ---
REPORT TO VIRGILIO.NOW PAGED 7PM RESIDENT BEEPER 176 ABOUT BP ORDERS.
--- NOTE | 2016-08-07 21:13 | NUR ---
DR. KELLEY RETURNED CALL FOR PT WAS NOT SURE IF SHE WAS COVERING PT BY NAME, MORE FAMILIAR WITH PT BY ROOM, EDUCATED BY THIS SECTION GANG WORKER SHOULD KNOW NAME OF PT, PER DR KELLEY, GIVE LOSARTAN 12.5 MG AND HOLD METOPROLOL XL 50 MG PO AT THIS TIME.
--- NOTE | 2016-08-07 21:19 | NUR ---
SPOKE WITH LISANDROCIST ABDUL WHO WILL GET MEDS TOGETHER.
--- NOTE | 2016-08-07 21:45 | Cons- Cardiology ---
General Information and HPI Consulting Request Date of Consult: 08/07/16 Requested By: ZEKE EGAN M.D Reason for Consult: Pulmonary embolism History of Present Illness: The patient is a 71-year-old female with history of hypertension, hyperlipidemia , stage IV lung cancer who is currently undergoing radiation therapy. She was recently diagnosed with new left ventricular dysfunction in June at [facility], with LVEF 25-30%. This was felt to be possibly secondary to takotsubo cardiomyopathy. He was readmitted to [facility] in July, and repeat echocardiogram revealed that her left ventricular fraction had normalized. She had a 1.5 x 0.7 cm left ventricular pedunculated thrombus. She was started on therapy with Lovenox. Yesterday, she developed increased shortness of breath with only minimal improvement with her nebulizer therapy. She presents to the emergency department where she was found to have right lower lobe subsegmental PE with worsening tumor burden results noted to have atrophic right kidney with chronic right renal artery occlusion. Allergies/Medications Allergies: Coded Allergies: oxycodone (From Percocet) (UNKNOWN 12/01/15) PERCOCET PER ANTIBIOTIC ORDER SHEET OF 12/01/15 (S) Home Med List: Alprazolam (Xanax) 0.25 MG TABLET 1 TAB PO TID PRN ANXIETY Aspirin (Ecotrin*) 81 MG TABLET.DR 1 TAB PO DAILY HEART/BLOOD (Reported) Atorvastatin Calcium (Lipitor) 80 MG TABLET 1 TAB PO DAILY CHOLESTEROL ( Reported) Citalopram Hydrobromide (Citalopram HBr) (Unknown Strength) TABLET (Unknown Dose) PO DAILY MENTAL HEALTH (Reported) Enoxaparin Sodium (Lovenox) 60 MG/0.6 ML SYRINGE 50 MG SC BID Blood thinner Furosemide (Lasix) 20 MG TABLET 3 TAB PO DAILY DIURETIC (Reported) Hydrocodone Bit/Homatrop Me-Br (Hydrocodone-Homatropine Syrup) (Unknown Strength ) SYRUP (Unknown Dose) PO Q4H PRN COUGH (Reported) Losartan Potassium (Cozaar) 25 MG TABLET 0.5 TAB PO DAILY HEART/BP (Reported) Metoprolol Succinate 50 MG TAB.ER.24H 1 TAB PO DAILY HEART/BP (Reported) Morphine Sulfate 15 MG TABLET 1 TAB PO Q4H PRN PAIN (Reported) Multivit-Min/FA/Lycopen/Lutein (Centrum Silver Tablet) 0.4 MG-300 MCG-250 MCG TABLET 1 TAB PO DAILY SUPPLEMENT (Reported) Pantoprazole Sodium 40 MG TABLET.DR 1 TAB PO DAILY GI (Reported) Polyethylene Glycol 3350 (Miralax) 17 GRAM/DOSE POWDER 17 GM PO DAILY PRN CONSTIPATION mix with water, juice, soda, coffee or tea Current Medications: Current Medications Sig/Georgi Start time Last Medication Dose Route Stop Time Status Admin Acetaminophen 650 MG ONCE ONE 08/07 1800 DC 08/07 PO 08/07 1801 1819 Acetaminophen 0 .STK-MED ONE 08/07 1800 DC PO Albuterol Sulfate 3 ML ONCE ONE 08/07 1415 DC 08/07 INH 08/07 1416 1418 Alprazolam 0.5 MG ONCE PRN 08/08 0915 AC 08/08 PO 08/08 1800 0932 Alprazolam 0.5 MG ONCE ONE 08/07 1515 DC 08/07 PO 08/07 1516 1507 Alprazolam 0 .STK-MED ONE 08/07 1503 DC PO Aspirin Buffered 81 MG DAILY 08/08 1000 AC 08/08 PO 0932 Atorvastatin Calcium 80 MG DAILY 08/07 1840 AC 08/08 PO 0932 Furosemide 60 MG DAILY 08/08 1000 AC 08/08 PO 0932 Guaifenesin 10 ML Q6P PRN 08/07 1845 AC PO Guaifenesin/Codeine 10 ML ONCE ONE 08/07 1815 DC 08/07 Phosphate PO 08/07 1816 1819 Heparin Sodium 0 .STK-MED ONE 08/07 1711 DC (Porcine) .ROUTE Heparin Sodium 0 .STK-MED ONE 08/07 1704 DC (Porcine) .ROUTE Heparin Sodium 4,000 UNIT ONCE ONE 08/07 1645 DC 08/07 (Porcine) IV 08/07 1646 1737 Heparin Sodium/ 25,000 UNIT ONCE ONE 08/07 1645 DC 08/07 Dextrose IV 08/08 0244 1749 Dextrose/Water 500 ML Ipratropium Rothschild 2.5 ML ONCE ONE 08/07 1415 DC 08/07 INH 08/07 1416 1418 Losartan Potassium 12.5 MG DAILY 08/07 1840 AC 08/08 PO 0933 Metoprolol Succinate 50 MG DAILY 08/07 1842 AC 08/08 PO 0932 Morphine Sulfate 2 MG ONCE ONE 08/08 0245 DC 08/08 IV 08/08 0246 0242 Morphine Sulfate 15 MG Q4P PRN 08/07 184 AC 08/08 PO 0230 Omeprazole 40 MG DAILY AC 08/07 184 AC 08/08 PO 0610 Polyethylene Glycol 17 GM DAILY 08/07 1850 AC 08/07 PO 2142 Potassium Chloride 40 MEQ ONCE ONE 08/075 DC 08/07 PO 08/07 2245 224 Potassium Chloride 40 MEQ ONCE ONE 08/07 2129 DC 08/08 PO 08/07 2130 0229 Potassium Chloride 40 MEQ ONCE ONE 08/07 191 DC 08/07 PO 08/07 1915 1930 Senna/Docusate Sodium 1 TAB BID 08/07 2199 AC 08/08 PO 0932 Review of Systems Review of Systems: No rash. No tremor. No hemoptysis. No hematemesis. All other systems were reviewed, and were noted to be negative. Past History Travel History Traveled to [place] past 21 day No Medical History Neurological: CVA, HEADACHES PER PT EENT: NONE Cardiovascular: cardiomyopathy, hypertension Respiratory: NONE Gastrointestinal: NONE Hepatic: NONE Renal: NONE Musculoskeletal: NONE Psychiatric: NONE Endocrine: NONE Blood Disorders: NONE Cancer(s): lung cancer, WITH BRAIN and bony [employer]/Reproductive: NONE Surgical History Surgical History: none (abdominal aneurysm repair) Family History Family History Reviewed? Family history was reviewed with the patient. There are no elements of the family history contributing to the current presentation. ( are no elements of the family) Exam & Diagnostic Data Vital Signs and I&O Vital Signs Date Time Temp Pulse Resp B/P Pulse O2 O2 Flow FiO2 Ox Delivery Rate 08/08 0933 84 138/70 08/08 09 84 138/70 08/08 0900 98.2 84 18 138/70 95 Nasal 2.0L Cannula 08/07 2214 97.7 94 20 132/78 96 Nasal 2.0L Cannula 08/07 2199 96 Nasal 2.0L Cannula 08/07 2038 98.2 102 18 127/63 96 Room Air 08/07 1902 98.0 99 20 142/87 99 Nasal 2.0L Cannula 08/07 1557 95 16 160/76 94 Nasal 2.0L Cannula 08/07 1433 95 Nasal 2.0L Cannula 08/07 1310 97 Room Air 08/07 1256 96.2 91 20 150/79 97 Room Air Intake & Output 08/08 0808/08 0000 08/07 1600 08/07 0808/07 0000 Intake Total 304 329.6 Output Total Balance 304 329.6 Intake, IV 104 109.6 Intake, Oral 200 220 Patient 115 lb 115 lb Weight Physical Exam: Gen: The patient is in no acute distress HEENT: Normal nose, ears, and oropharynx. Pupils equal bilaterally. Conjunctiva normal. Neck: Supple with no JVD, no masses, and no thyromegaly Lungs: Clear to auscultation with normal respiratory effort Heart: RRR, S1, S2, no murmurs. No peripheral edema, 2+ pulses in the lower extremities bilaterally Abdomen: Soft, nontender, no masses. No hepatomegaly. No splenomegaly Extremities: No clubbing or cyanosis. Normal muscle strength in the upper and lower extremities Skin: Normal skin turgor with no skin ulcers or lesions noted. Neuro: Cranial nerves intact. Sensation intact Psych: Alert and oriented 3 with appropriate affect Labs/Yusuf Results: Laboratory Tests 08/08 08/07 08/07 0600 2300 2100 Chemistry Sodium (137 - 145 mmol/L) 132 L 131 L Potassium (3.5 - 5.1 mmol/L) 4.8 2.9 *L Chloride (98 - 107 mmol/L) 93 L 89 L Carbon Dioxide (22 - 30 mmol/L) 28 29 Anion Gap (5 - 16) 11 13 BUN (7 - 17 mg/dL) 12 13 Creatinine (0.5 - 1.0 mg/dL) 0.7 0.8 Estimated GFR (>60 ml/min) > 60 > 60 BUN/Creatinine Ratio (7 - 25 %) 17.1 16.3 Troponin I (< 0.11 ng/ml) 0.08 Coagulation APTT (25 - 37 SEC) 63 H Hematology CBC w Diff NO MAN DIFF REQ WBC (4.8 - 10.8 /CUMM) 9.8 RBC (4.20 - 5.40 /CUMM) 3.25 L Hgb (12.0 - 16.0 G/DL) 10.2 L Hct (37 - 47 %) 30.1 L MCV (81.0 - 99.0 FL) 92.8 MCH (27.0 - 31.0 PG) 31.5 H RDW (11.5 - 14.5 %) 17.1 H Plt Count (130 - 400 /CUMM) 431 H MPV (7.4 - 10.4 FL) 7.8 Gran % (42.2 - 75.2 %) 82.9 H Lymphocytes % (20.5 - 51.1 %) 7.4 L Monocytes % (1.7 - 9.3 %) 8.8 Eosinophils % (0 - 5 %) 0.8 Basophils % (0.0 - 2.0 %) 0.1 Absolute Granulocytes (1.4 - 6.5 /CUMM) 8.1 H Absolute Lymphocytes (1.2 - 3.4 /CUMM) 0.7 L Absolute Monocytes (0.10 - 0.60 /CUMM) 0.9 H Absolute Eosinophils (0.0 - 0.7 /CUMM) 0.1 Absolute Basophils (0.0 - 0.2 /CUMM) 0 PUBS MCHC (33.0 - 37.0 G/DL) 34.0 08/07 1340 Chemistry Sodium (137 - 145 mmol/L) Cancelled 131 L Potassium (3.5 - 5.1 mmol/L) Cancelled 3.0 L Chloride (98 - 107 mmol/L) Cancelled 90 L Carbon Dioxide (22 - 30 mmol/L) Cancelled 28 Anion Gap (5 - 16) Cancelled 14 BUN (7 - 17 mg/dL) Cancelled 14 Creatinine (0.5 - 1.0 mg/dL) Cancelled 0.8 Estimated GFR (>60 ml/min) > 60 BUN/Creatinine Ratio (7 - 25 %) Cancelled 17.5 Glucose (65 - 99 mg/dL) 152 H Calcium (8.4 - 10.2 mg/dL) 9.0 Total Bilirubin (0.2 - 1.3 mg/dL) 0.5 AST (14 - 36 U/L) 30 ALT (9 - 52 U/L) 48 Alkaline Phosphatase (<127 U/L) 190 H Troponin I (< 0.11 ng/ml) 0.04 Raz-[id number]-Aqrtlewjipv Pept (<125 pg/mL) 2510 H Total Protein (6.3 - 8.2 g/dL) 6.1 L Albumin (3.5 - 5.0 g/dL) 3.5 Globulin (1.9 - 4.2 gm/dL) 2.6 Albumin/Globulin Ratio (1.1 - 2.2 %) 1.3 Coagulation PT (9.4 - 12.5 SEC) 10.7 INR (0.90 - 1.19) 1.02 APTT (25 - 37 SEC) 24 L Hematology CBC w Diff NO MAN DIFF REQ WBC (4.8 - 10.8 /CUMM) 9.4 RBC (4.20 - 5.40 /CUMM) 3.53 L Hgb (12.0 - 16.0 G/DL) 11.0 L Hct (37 - 47 %) 32.8 L MCV (81.0 - 99.0 FL) 92.9 MCH (27.0 - 31.0 PG) 31.2 H RDW (11.5 - 14.5 %) 16.5 H Plt Count (130 - 400 /CUMM) 477 H MPV (7.4 - 10.4 FL) 7.6 Gran % (42.2 - 75.2 %) 82.7 H Lymphocytes % (20.5 - 51.1 %) 10.4 L Monocytes % (1.7 - 9.3 %) 6.4 Eosinophils % (0 - 5 %) 0.4 Basophils % (0.0 - 2.0 %) 0.1 Absolute Granulocytes (1.4 - 6.5 /CUMM) 7.8 H Absolute Lymphocytes (1.2 - 3.4 /CUMM) 1.0 L Absolute Monocytes (0.10 - 0.60 /CUMM) 0.6 Absolute Eosinophils (0.0 - 0.7 /CUMM) 0 Absolute Basophils (0.0 - 0.2 /CUMM) 0 PUBS MCHC (33.0 - 37.0 G/DL) 33.6 Diagnostic Data EKG Results EKG tracing is independently reviewed, and reveals normal sinus rhythm at 91 with left atrial abdomen mildly and inferior infarct age undetermined CXR Results Persistent left lung volume loss secondary to previously noted prominent lymph nodes within the mediastinum and left hilum with associated narrowing of the left mainstem bronchus. No new airspace consolidation is identified. The right lung is grossly clear. No pleural effusions or pneumothoraces. Other Results Echocardiogram 07/18/12: - Normal left ventricular size, thickness, systolic function, and wall motion. LVEF calculated by 3DE is 65%. There are regional wall motion abnormalities, with hypokinesis of the anteroseptum. Diastolic function is normal. Thrombus in the left ventricle. There is a mobile pedunculated left ventricular thrombus is 1.5 x 0.6x 0.7cm measured by 3DE. - Normal right ventricular cavity size and systolic function. - There is moderate aortic valve regurgitation. - Tricuspid regurgitation envelope is inadequate for calculation of right ventricular systolic pressure. - No evidence of pericardial effusion. CTA chest and abdomen: Stable dilatation of the ascending thoracic aorta. No acute thoracic aortic dissection. Question old chronic dissection of the proximal abdominal aorta. This is stable in size with increasing thrombus compared to June 2016 exam. 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 The size of the aortic dilatation does not appear appreciably changed measuring maximum 3 x 3.2 cm. 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 Arcuate type celiac axis stenosis. Narrowed left lower lobe pulmonary artery from increasing adenopathy. Small subsegmental posterior basal segment right lower lobe pulmonary emboli. CHEST: Interval decrease in size in the superior segment left lower lobe nodule compared to June 2016. There is increasing left-sided mediastinal and hilar adenopathy. There is increased narrowing of the left upper lobe bronchus and left upper lobe atelectasis. Increasing right lower lobe pulmonary nodule. ABDOMEN: Diastasis of the rectus muscles. Atrophic right kidney. Right renal cysts. Interval increase in size and number of bony lesions compared to previous CT. Findings were communicated to Roverto Santana by telephone 08/07/2016 at 4:13 PM. Assessment/Plan Assessment/Plan Assessment: 1. Stage IV metastatic lung cancer 2. Pulmonary embolism 3. Recent takotsubo cardiomyopathy with recovery of LVEF 4. Left ventricular thrombus Plan: * Continue Lovenox at therapeutic dose * Continue losartan and metoprolol * Would hold off for now on repeating echocardiogram since she had an echocardiogram at [facility] 2 weeks ago. * Consult Acknowledgment - Thank you for your consult request.
[2016-08-07 22:15] VITALS: BP 132/78
[2016-08-08 00:26] LABS: PTT 63 SEC (25-37)
[2016-08-08 07:53] LABS: ABSOLUTE BASOPHIL COUNT 0 /CUMM (0.0-0.2); ABSOLUTE EOSINOPHIL COUNT 0.1 /CUMM (0.0-0.7); ABSOLUTE GRANULOCYTE CT 8.1 /CUMM (1.4-6.5); ABSOLUTE LYMPH COUNT 0.7 /CUMM (1.2-3.4); ABSOLUTE MONOCYTE COUNT 0.9 /CUMM (0.10-0.60); BASOPHIL % 0.1 % (0.0-2.0); EOSINOPHIL % 0.8 % (0-5); GRANULOCYTE % 82.9 % (42.2-75.2); HEMATOCRIT 30.1 % (37-47); MEAN CORPUSCULAR HGB 31.5 PG (27.0-31.0); MEAN CORPUSCULAR VOLUME 92.8 FL (81.0-99.0); MEAN PLATELET VOLUME 7.8 FL (7.4-10.4); PLATELET COUNT 431 /CUMM (130-400); RBC DISTRIBUTION WIDTH 17.1 % (11.5-14.5); RED BLOOD CELL CT 3.25 /CUMM (4.20-5.40); WHITE BLOOD CELL COUNT 9.8 /CUMM (4.8-10.8)
[2016-08-08 09:00] VITALS: BP 138/70
--- NOTE | 2016-08-08 09:18 | PN- Housestaff ---
Subjective Follow-up For: Pulmonary embolism Tele-Events Since Last Visit: SR. HR 80-100. No acute events. Subjective: No acute events overnight. Patient seen and examined this morning. She feels anxious today. She woke up in the middle of the night with "agony" and was given morphine with significant relief. SOB is improved. She endorses cough productive of yellow sputum. Review of Systems Constitutional: Denies: chills, fever. Cardiovascular: Denies: chest pain. Respiratory: Reports: cough, sputum production. Denies: short of breath. Gastrointestinal: Denies: abdominal pain, constipation, diarrhea, nausea, vomiting. Objective Last 24 Hrs of Vital Signs/I&O Vital Signs Date Time Temp Pulse Resp B/P Pulse O2 O2 Flow FiO2 Ox Delivery Rate 08/08 2231 95 Nasal 2.0L Cannula 08/08 1530 98.2 91 20 102/60 91 Nasal 2.0L Cannula 08/08 1346 Nasal 2.0L Cannula 08/08 0933 84 138/70 08/08 0932 84 138/70 08/08 0900 98.2 84 18 138/70 95 Nasal 2.0L Cannula 08/08 0800 Nasal 2.0L Cannula Intake & Output 08/09 0800 08/09 0000 08/08 1600 Intake Total 225 1067.3 Output Total Balance 225 1067.3 Intake, IV 122.3 Intake, Oral 225 945 Physical Exam General Appearance: Alert, Oriented X3, No Acute Distress HEENT: Mucous Membr. moist/pink Cardiovascular: Regular Rate, Normal S1, Normal S2, No Murmurs, Gallops, Rubs Lungs: Normal Air Movement, Wheezes Scattered Throughout Bilateral Lung Aguilar Abdomen: Soft, No Tenderness, Positive Bowel Sounds Extremities: No Clubbing, No Cyanosis, No Edema Current Medications: Current Medications Sig/Georgi Start time Last Medication Dose Route Stop Time Status Admin Albuterol Sulfate 3 ML Q4P PRN 08/08 1400 AC INH Alprazolam 0.5 MG ONCE PRN 08/08 0915 DC 08/08 PO 08/08 1800 0932 Aspirin Buffered 81 MG DAILY 08/08 1000 AC 08/08 PO 0932 Atorvastatin Calcium 80 MG DAILY 08/07 1840 AC 08/08 PO 0932 Bisacodyl 5 MG DAILY NEEDED PRN 08/08 1200 AC PO Enoxaparin Sodium 50 MG BID 08/08 1240 AC 08/08 SC 205 Furosemide 60 MG DAILY 08/08 1000 AC 08/08 PO 0932 Guaifenesin 10 ML Q6P PRN 08/07 1845 AC 08/09 PO 0136 Losartan Potassium 12.5 MG DAILY 08/07 1840 AC 08/08 PO 0933 Magnesium Oxide 400 MG ONE ONE 08/08 1445 DC 08/08 PO 08/08 1446 1547 Metoprolol Succinate 50 MG DAILY 08/07 1842 AC 08/08 PO 0932 Morphine Sulfate 15 MG Q4P PRN 08/07 1845 AC 08/09 PO 0137 Omeprazole 40 MG DAILY AC 08/07 1843 AC 08/08 PO 0610 Patient Medication 1 UNIT ONE NR 08/08 1300 DC Teaching ED 08/08 1900 Polyethylene Glycol 17 GM DAILY 08/07 1850 AC 08/07 PO 2142 Senna/Docusate Sodium 1 TAB BID PRN 08/08 1246 AC PO Senna/Docusate Sodium 1 TAB BID 08/08 1152 DC PO Senna/Docusate Sodium 1 TAB BID 08/07 2200 DC 08/08 PO 0932 Last 24 Hrs of Lab/Yusuf Results Last 24 Hrs of Labs/Mics: Laboratory Tests 08/08/16 1140: APTT 61 H 08/08/16 0600: Anion Gap 11, Estimated GFR > 60, BUN/Creatinine Ratio 17.1, Magnesium 1.7, CBC w Diff NO MAN DIFF REQ, RBC 3.25 L, MCV 92.8, MCH 31.5 H, RDW 17.1 H, MPV 7.8 , Gran % 82.9 H, Lymphocytes % 7.4 L, Monocytes % 8.8, Eosinophils % 0.8, Basophils % 0.1, Absolute Granulocytes 8.1 H, Absolute Lymphocytes 0.7 L, Absolute Monocytes 0.9 H, Absolute Eosinophils 0.1, Absolute Basophils 0, PUBS MCHC 34.0 Orders Radiology Findings: CXR: Persistent left lung volume loss secondary to previously noted prominent lymph nodes within the mediastinum and left hilum with associated narrowing of the left mainstem bronchus. No new airspace consolidation is identified. The right lung is grossly clear. No pleural effusions or pneumothoraces. 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 #PE: CTA of Chest with small right posterior subsegmental PE of indeterminate chronicity. Unclear if this is the underlying etiology for her dyspnea which could also be due to progression of her metastatic lung cancer. Patient had been taking Lovenox since the beginning of July 2016, thus Dr. Gastelum felt that it is difficult to classify this as a LMWH failure. * Hem/onc following. Appreciate their recs. * Lovenox 1 mg/kg SQ BID started. #Metastatic lung cancer: CXR today with persistent left lung volume loss secondary to lymphadenopathy and associated narrowing of the left mainstem bronchus. * Follow up with Dr. Robins for initiation of chemotherapy. * Follow up with Dr. Gracia for continuation of radiation therapy. * Pulmonology consulted per patient and her 's request. Appreciate their recs. * Encourage incentive spirometry. * Wean down oxygen as tolerated. #Takotsubo cardiomyopathy: * Hold off on repeating ECHO as patient had repeat ECHO at [facility] 2 weeks ago. * Continue Toprol XL 50 mg PO QD and losartan 12.5 mg PO QD. #Chronic pain: Secondary to metastatic lung cancer. * Morphine 15 mg PO Q4H pRN. * Scheduled Miralax and PRN Senna and Dulcolax to prevent opioid-induced constipation. Diet: Heart Healthy DVT PPx: Lovenox and ALPs CODE: FULL Problem List: 1. Pulmonary embolus 2. Metastatic lung cancer (metastasis from lung to other site) 3. Takotsubo cardiomyopathy Pain Ratin Pain Location: N/A Pain Goal: Remain pain free Pain Plan: Morphine 15 mg PO Q4H PRN for Tomorrow's Labs & Rationales: CBC to monitor H/H in the setting of anti-coaguation therapy BMP and Mg to monitor lytes and kidney function in the setting of electrolyte disturbances
--- NOTE | 2016-08-08 11:14 | PN- Att Addend ---
Attending Addendum Attending Brief Note Patient seen and examined. Resting comfortably in the bed not in acute distress. No events overnight on telemetry. Patient complained of generalized pain overnight. Reported relief with morphine. No other issues overnight reported by patient and her She denies shortness of breath at rest. She denies chest pain. She denies any nausea or episodes of vomiting since admission. She has been afebrile and maintaining saturation of 94-95% on 2 L of oxygen. Vital Signs Date Time Temp Pulse Resp B/P Pulse O2 O2 Flow FiO2 Ox Delivery Rate 08/08 0933 84 138/70 08/08 0932 84 138/70 08/08 0900 98.2 84 18 138/70 95 Nasal 2.0L Cannula 08/08 0800 Nasal 2.0L Cannula 08/07 2215 97.7 94 20 132/78 96 Nasal 2.0L Cannula 08/07 2200 96 Nasal 2.0L Cannula 08/07 2039 98.2 102 18 127/63 96 Room Air 08/07 1902 98.0 99 20 142/87 99 Nasal 2.0L Cannula 08/07 1557 95 16 160/76 94 Nasal 2.0L Cannula 08/07 1433 95 Nasal 2.0L Cannula 08/07 1310 97 Room Air 08/07 1256 96.2 91 20 150/79 97 Room Air Gen. appearance: Well-developed, not in acute distress HEENT: Anicteric, no pallor Heart: S1-S2 regular Lungs: Diminished entry left lung base. No added sounds. Abdomen: Soft, nontender with normal bowel sounds Extremities: No pedal edema Skin: Intact with no rashes Laboratory Tests 08/08/16 0600: Anion Gap 11, Estimated GFR > 60, BUN/Creatinine Ratio 17.1, CBC w Diff NO MAN DIFF REQ, RBC 3.25 L, MCV 92.8, MCH 31.5 H, RDW 17.1 H, MPV 7.8, Gran % 82.9 H, Lymphocytes % 7.4 L, Monocytes % 8.8, Eosinophils % 0.8, Basophils % 0.1, Absolute Granulocytes 8.1 H, Absolute Lymphocytes 0.7 L, Absolute Monocytes 0.9 H, Absolute Eosinophils 0.1, Absolute Basophils 0, PUBS MCHC 34.0 08/07/16 2300: APTT 63 H 08/07/16 2100: Anion Gap 13, Estimated GFR > 60, BUN/Creatinine Ratio 16.3, Troponin I 0.08 08/07/16 2053: Sodium Cancelled, Potassium Cancelled, Chloride Cancelled, Carbon Dioxide Cancelled, Anion Gap Cancelled, BUN Cancelled, Creatinine Cancelled, BUN/ Creatinine Ratio Cancelled 08/07/16 1340: Anion Gap 14, Estimated GFR > 60, BUN/Creatinine Ratio 17.5, Glucose 152 H, Calcium 9.0, Total Bilirubin 0.5, AST 30, ALT 48, Alkaline Phosphatase 190 H, Troponin I 0.04, Dkn-T-Kekeyrcntel Pept 2510 H, Total Protein 6.1 L, Albumin 3.5, Globulin 2.6, Albumin/Globulin Ratio 1.3, PT 10.7, INR 1.02, APTT 24 L, CBC w Diff NO MAN DIFF REQ, RBC 3.53 L, MCV 92.9, MCH 31.2 H, RDW 16.5 H, MPV 7.6, Gran % 82.7 H, Lymphocytes % 10.4 L, Monocytes % 6.4, Eosinophils % 0.4, Basophils % 0.1, Absolute Granulocytes 7.8 H, Absolute Lymphocytes 1.0 L, Absolute Monocytes 0.6, Absolute Eosinophils 0, Absolute Basophils 0, PUBS MCHC 33.6 Problems: 1. Dyspnea; likely secondary to underlying pulmonary malignancy. 2. Incidental finding of small subsegmental pulmonary embolism. 3. Metastatic cancer 4. Chronic pain syndrome secondary to above. 5. Diffuse thrombotic disease. Patient is on anticoagulation with Lovenox Plan: -She remains stable from a pulmonary standpoint. Breath sounds however. Diminished on the left side today. Obtain chest x-ray for evaluation. -Begin incentive spirometry and taper off oxygen supplementation as tolerated. -Would recommend transition patient back to Lovenox for and cognition therapy. Follow-up with oncology service regarding this and also dosing. -Patient and are requesting to follow-up with the pulmonary service of Rajeev Butler MD. Consult has been placed. -Continue her morphine for chronic pain. Begin patient on a bowel regimen to prevent opioid-induced constipation.
--- NOTE | 2016-08-08 13:30 | Cons- Oncology ---
General Information and HPI Consulting Request Date of Consult: 08/08/16 Requested By: ZEKE EGAN M.D Reason for Consult: lung cancer, PE Source of Information: patient, family, old records Exam Limitations: no limitations History of Present Illness: Mrs. 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 She states hse has been having more difficulty with breathing starting yesterday. Breathing was worse with exertion. She denies any chest pain. She tried albuterol nebulizer but did not help much. She presented to ED after the symptoms did not improve. In the ED, she was reported to have mild dyspnea. Her oxygen saturation was 95% on room air. She underwent CTA of the chest and abdomen which demonstrated small subsegmental posterior basal segment of RLL pulmonary emboli and increasing adenopathy in the LLL. She was started on heparin drip and admitted to the hospital. Of note, she is currently receiving radiation with Dr. Gracia to the right scapula and T4. Her last session was 08/05/2016 which was session 4 of 10. Allergies/Medications Allergies: Coded Allergies: oxycodone (From Percocet) (UNKNOWN 12/01/15) PERCOCET PER ANTIBIOTIC ORDER SHEET OF 12/01/15 (SJS) Home Med List: Aspirin (Ecotrin*) 81 MG TABLET.DR 1 TAB PO DAILY HEART/BLOOD (Reported) Atorvastatin Calcium (Lipitor) 80 MG TABLET 1 TAB PO DAILY CHOLESTEROL ( Reported) Citalopram Hydrobromide (Citalopram HBr) (Unknown Strength) TABLET (Unknown Dose) PO DAILY MENTAL HEALTH (Reported) Enoxaparin Sodium (Lovenox) 80 MG/0.8 ML SYRINGE 0.8 ML SC DAILY BLOOD THINNER (Reported) Furosemide (Lasix) 20 MG TABLET 3 TAB PO DAILY DIURETIC (Reported) Hydrocodone Bit/Homatrop Me-Br (Hydrocodone-Homatropine Syrup) (Unknown Strength ) SYRUP (Unknown Dose) PO Q4H PRN COUGH (Reported) Losartan Potassium (Cozaar) 25 MG TABLET 0.5 TAB PO DAILY HEART/BP (Reported) Metoprolol Succinate 50 MG TAB.ER.24H 1 TAB PO DAILY HEART/BP (Reported) Morphine Sulfate 15 MG TABLET 1 TAB PO Q4H PRN PAIN (Reported) Multivit-Min/FA/Lycopen/Lutein (Centrum Silver Tablet) 0.4 MG-300 MCG-250 MCG TABLET 1 TAB PO DAILY SUPPLEMENT (Reported) Pantoprazole Sodium 40 MG TABLET.DR 1 TAB PO DAILY GI (Reported) Current Medications: Current Medications Sig/Georgi Start time Last Medication Dose Route Stop Time Status Admin Acetaminophen 650 MG ONCE ONE 08/07 1800 DC 08/07 PO 08/07 1801 1819 Acetaminophen 0 .STK-MED ONE 08/07 1800 DC PO Albuterol Sulfate 3 ML ONCE ONE 08/07 1415 DC 08/07 INH 08/07 1416 1418 Alprazolam 0.5 MG ONCE PRN 08/08 0915 AC 08/08 PO 08/08 1800 0932 Alprazolam 0.5 MG ONCE ONE 08/07 1515 DC 08/07 PO 08/07 1516 1507 Alprazolam 0 .STK-MED ONE 08/07 1503 DC PO Aspirin Buffered 81 MG DAILY 08/08 1000 AC 08/08 PO 0932 Atorvastatin Calcium 80 MG DAILY 08/07 1840 AC 08/08 PO 0932 Bisacodyl 5 MG DAILY NEEDED PRN 08/08 1200 AC PO Enoxaparin Sodium 50 MG BID 08/08 1240 AC SC Furosemide 60 MG DAILY 08/08 1000 AC 08/08 PO 0932 Guaifenesin 10 ML Q6P PRN 08/07 1845 AC 08/08 PO 1104 Guaifenesin/Codeine 10 ML ONCE ONE 08/07 1815 DC 08/07 Phosphate PO 08/07 1816 1819 Heparin Sodium 0 .STK-MED ONE 08/07 1711 DC (Porcine) .ROUTE Heparin Sodium 0 .STK-MED ONE 08/07 1704 DC (Porcine) .ROUTE Heparin Sodium 4,000 UNIT ONCE ONE 08/07 1645 DC 08/07 (Porcine) IV 08/07 1646 1737 Heparin Sodium/ 25,000 UNIT ONCE ONE 08/07 1645 DC 08/07 Dextrose IV 08/08 0244 1749 Dextrose/Water 500 ML Ipratropium [place] 2.5 ML ONCE ONE 08/07 1415 DC 08/07 INH 08/07 1416 1418 Losartan Potassium 12.5 MG DAILY 08/07 1840 AC 08/08 PO 0933 Metoprolol Succinate 50 MG DAILY 08/07 1842 AC 08/08 PO 0932 Morphine Sulfate 2 MG ONCE ONE 08/08 0245 DC 08/08 IV 08/08 0246 0242 Morphine Sulfate 15 MG Q4P PRN 08/07 1845 AC 08/08 PO 0230 Omeprazole 40 MG DAILY AC 08/07 1843 AC 08/08 PO 0610 Patient Medication 1 UNIT ONE NR 08/08 1300 AC Teaching ED 08/08 1900 Polyethylene Glycol 17 GM DAILY 08/07 1850 AC 08/07 PO 2142 Potassium Chloride 40 MEQ .STK-MED ONE 08/08 0226 DC PO 08/08 0227 Potassium Chloride 40 MEQ ONCE ONE 08/07 2245 DC 08/07 PO 08/07 2246 2244 Potassium Chloride 40 MEQ ONCE ONE 08/07 2130 DC 08/08 PO 08/07 2131 0229 Potassium Chloride 40 MEQ ONCE ONE 08/07 1915 DC 08/07 PO 08/07 1916 1930 Senna/Docusate Sodium 1 TAB BID PRN 08/08 1246 AC PO Senna/Docusate Sodium 1 TAB BID 08/08 1152 DC PO Senna/Docusate Sodium 1 TAB BID 08/07 2200 DC 08/08 PO 0932 Review of Systems Review of Systems Constitutional: Denies: chills, fever, weakness. Cardiovascular: Denies: chest pain, edema, peripheral edema. Respiratory: Reports: short of breath. Denies: cough, hemoptysis. GI: Denies: abdominal pain, nausea. Skin: Denies: erythema. Hematologic/Endocrine: Denies: bleeding. Immunologic/Allergic: Denies: lymphadenopathy. 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 Home Services at Home: None Smoking Status: Former Smoker Exam & Diagnostic Data Vital Signs and I&O Vital Signs Date Time Temp Pulse Resp B/P Pulse O2 O2 Flow FiO2 Ox Delivery Rate 08/08 0933 84 138/70 08/08 0932 84 138/70 08/08 09 98.2 84 18 138/70 95 Nasal 2.0L Cannula 08/08 0800 Nasal 2.0L Cannula 08/07 2215 97.7 94 20 132/78 96 Nasal 2.0L Cannula 08/07 2200 96 Nasal 2.0L Cannula 08/07 2039 98.2 102 18 127/63 96 Room Air 08/07 1902 98.0 99 20 142/87 99 Nasal 2.0L Cannula 08/07 1557 95 16 160/76 94 Nasal 2.0L Cannula 08/07 1433 95 Nasal 2.0L Cannula 08/07 1310 97 Room Air Intake & Output 08/08 1600 08/08 0800 08/08 0000 Intake Total 304 329.6 Output Total Balance 304 329.6 Intake, IV 104 109.6 Intake, Oral 200 220 Patient 52.163 kg Weight Physical Exam General Appearance: alert, awake, comfortable, on 2L NC Head: atraumatic, normal appearance Eyes: Bilateral: PERRL. Ears, Nose, Throat: normal pharynx Neck: supple Respiratory: chest non-tender, no respiratory distress, quiet respiration, decreased breath sounds (LLL) Cardiovascular: regular rate/rhythm Gastrointestinal: normal bowel sounds, soft, non-tender, no organomegaly Extremities: no edema Neurologic/Psych: awake, alert, oriented x 3 Skin: intact, normal color Lymphatic: no anterior cervical debbie Last 48 Hours of Lab Results: Laboratory Tests 08/08 08/08 08/07 08/07 1140 0600 2300 2100 Chemistry Sodium (137 - 145 mmol/L) 132 L 131 L Potassium (3.5 - 5.1 mmol/L) 4.8 2.9 *L Chloride (98 - 107 mmol/L) 93 L 89 L Carbon Dioxide (22 - 30 mmol/L) 28 29 Anion Gap (5 - 16) 11 13 BUN (7 - 17 mg/dL) 12 13 Creatinine (0.5 - 1.0 mg/dL) 0.7 0.8 Estimated GFR (>60 ml/min) > 60 > 60 BUN/Creatinine Ratio (7 - 25 %) 17.1 16.3 Troponin I (< 0.11 ng/ml) 0.08 Coagulation APTT (25 - 37 SEC) Pending 63 H Hematology CBC w Diff NO MAN DIFF REQ WBC (4.8 - 10.8 /CUMM) 9.8 RBC (4.20 - 5.40 /CUMM) 3.25 L Hgb (12.0 - 16.0 G/DL) 10.2 L Hct (37 - 47 %) 30.1 L MCV (81.0 - 99.0 FL) 92.8 MCH (27.0 - 31.0 PG) 31.5 H RDW (11.5 - 14.5 %) 17.1 H Plt Count (130 - 400 /CUMM) 431 H MPV (7.4 - 10.4 FL) 7.8 Gran % (42.2 - 75.2 %) 82.9 H Lymphocytes % (20.5 - 51.1 %) 7.4 L Monocytes % (1.7 - 9.3 %) 8.8 Eosinophils % (0 - 5 %) 0.8 Basophils % (0.0 - 2.0 %) 0.1 Absolute Granulocytes (1.4 - 6.5 /CUMM) 8.1 H Absolute Lymphocytes (1.2 - 3.4 /CUMM) 0.7 L Absolute Monocytes (0.10 - 0.60 /CUMM) 0.9 H Absolute Eosinophils (0.0 - 0.7 /CUMM) 0.1 Absolute Basophils (0.0 - 0.2 /CUMM) 0 PUBS MCHC (33.0 - 37.0 G/DL) 34.0 08/07 1340 Chemistry Sodium (137 - 145 mmol/L) Cancelled 131 L Potassium (3.5 - 5.1 mmol/L) Cancelled 3.0 L Chloride (98 - 107 mmol/L) Cancelled 90 L Carbon Dioxide (22 - 30 mmol/L) Cancelled 28 Anion Gap (5 - 16) Cancelled 14 BUN (7 - 17 mg/dL) Cancelled 14 Creatinine (0.5 - 1.0 mg/dL) Cancelled 0.8 Estimated GFR (>60 ml/min) > 60 BUN/Creatinine Ratio (7 - 25 %) Cancelled 17.5 Glucose (65 - 99 mg/dL) 152 H Calcium (8.4 - 10.2 mg/dL) 9.0 Total Bilirubin (0.2 - 1.3 mg/dL) 0.5 AST (14 - 36 U/L) 30 ALT (9 - 52 U/L) 48 Alkaline Phosphatase (<127 U/L) 190 H Troponin I (< 0.11 ng/ml) 0.04 Viu-T-Wilogpjzxjs Pept (<125 pg/mL) 2510 H Total Protein (6.3 - 8.2 g/dL) 6.1 L Albumin (3.5 - 5.0 g/dL) 3.5 Globulin (1.9 - 4.2 gm/dL) 2.6 Albumin/Globulin Ratio (1.1 - 2.2 %) 1.3 Coagulation PT (9.4 - 12.5 SEC) 10.7 INR (0.90 - 1.19) 1.02 APTT (25 - 37 SEC) 24 L Hematology CBC w Diff NO MAN DIFF REQ WBC (4.8 - 10.8 /CUMM) 9.4 RBC (4.20 - 5.40 /CUMM) 3.53 L Hgb (12.0 - 16.0 G/DL) 11.0 L Hct (37 - 47 %) 32.8 L MCV (81.0 - 99.0 FL) 92.9 MCH (27.0 - 31.0 PG) 31.2 H RDW (11.5 - 14.5 %) 16.5 H Plt Count (130 - 400 /CUMM) 477 H MPV (7.4 - 10.4 FL) 7.6 Gran % (42.2 - 75.2 %) 82.7 H Lymphocytes % (20.5 - 51.1 %) 10.4 L Monocytes % (1.7 - 9.3 %) 6.4 Eosinophils % (0 - 5 %) 0.4 Basophils % (0.0 - 2.0 %) 0.1 Absolute Granulocytes (1.4 - 6.5 /CUMM) 7.8 H Absolute Lymphocytes (1.2 - 3.4 /CUMM) 1.0 L Absolute Monocytes (0.10 - 0.60 /CUMM) 0.6 Absolute Eosinophils (0.0 - 0.7 /CUMM) 0 Absolute Basophils (0.0 - 0.2 /CUMM) 0 PUBS MCHC (33.0 - 37.0 G/DL) 33.6 Imaging/Other Studies: CTA Chest/abdomen/pelvis 08/07/2016 (compared to CTA CAP 06/08/2016): Stable dilatation of the ascending thoracic aorta. No acute thoracic aortic dissection. Question old chronic dissection of the proximal abdominal aorta. This is stable in size with increasing thrombus compared to June 2016 exam. 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 The size of the aortic dilatation does not appear appreciably changed measuring maximum 3 x 3.2 cm. 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 Arcuate type celiac axis stenosis. Narrowed left lower lobe pulmonary artery from increasing adenopathy. Small subsegmental posterior basal segment right lower lobe pulmonary emboli. CHEST: Interval decrease in size in the superior segment left lower lobe nodule compared to June 2016. There is increasing left-sided mediastinal and hilar adenopathy. There is increased narrowing of the left upper lobe bronchus and left upper lobe atelectasis. Increasing right lower lobe pulmonary nodule. ABDOMEN: Diastasis of the rectus muscles. Atrophic right kidney. Right renal cysts. OSSEOUS: Interval increase in size and number of bony lesions compared to previous CT. Assessment/Plan Assessment: Mrs. Danielle is a 71-year-old female with metastatic lung cancer to the brain, liver, and bone, cardiomyopathy, stroke, and recent right sigmoid sinus thrombosis who was admitted to the hospital with shortness of breath and nausea. CTA of the chest, abdomen, and pelvis on admission demonstrated small right posterior subsegmental PE and increasing LLL adenopathy when compared to imaging in June 2016. It is difficult to determine the chronicity of this subsegmental PE. It is unlikely that this is the etiology of her dypnea. Progression of her underlying metastatic disease is a potential etiology for her dyspnea. Radiation effect due to radiation of the scapula but imaging does not note any pneumonitis. She was recently diagnosed with right sigmoid sinus thrombosis in the beginning of July 2016. She was just switched to enoxaparin at that time. She is taking enoxaparin once a day. If is difficult to call her a LMWH failure at the moment. She can be restarted on enoxaparin. She can be dosed at 1 mg/kg BID. Larger meta-analysis have not demonstrated a significant difference in safety or efficacy between daily and BID dosing. Although some small retrospective studies have indicated that cancer patient may be better on twice a day dosing. If she has no issue with twice a day dosing, she can be placed on this. Recommendations: 1. enoxaparin 1 mg/kg BID 2. Monitor respiratory status 3. Pulmonary evaluation pending 4. Follow up with Dr. Robins as scheduled for initiation of therapy (Gemzar?) 5. Follow up with Dr. Gracia of radiation oncology for continuation of therapy Problem List: 1. Cerebral venous thrombosis of sigmoid sinus 2. Pulmonary embolus 3. Metastatic lung cancer (metastasis from lung to other site) Other Findings/Comments: Please call [phone] with any questions or concerns Consult Acknowledgment - Thank you for your consult request.
[2016-08-08 13:53] LABS: PTT 61 SEC (25-37)
[2016-08-08 15:30] VITALS: BP 102/60
--- NOTE | 2016-08-08 20:06 | PN- Cardiology ---
Subjective Subjective: Feeling better. No current shortness of breath or chest pain. No palpitations. No diaphoresis. Objective Vital Signs and I&Os Vital Signs Date Time Temp Pulse Resp B/P Pulse O2 O2 Flow FiO2 Ox Delivery Rate 08/08 1530 98.2 91 20 102/60 91 Nasal 2.0L Cannula 08/08 1346 Nasal 2.0L Cannula 08/08 0933 84 138/70 08/08 0932 84 138/70 08/08 0900 98.2 84 18 138/70 95 Nasal 2.0L Cannula 08/08 0800 Nasal 2.0L Cannula 08/07 2215 97.7 94 20 132/78 96 Nasal 2.0L Cannula 08/07 2200 96 Nasal 2.0L Cannula 08/07 2039 98.2 102 18 127/63 96 Room Air Intake & Output 08/08 1600 08/08 0800 08/08 0000 08/07 1600 08/07 0800 08/07 0000 Intake Total 1067.3 304 329.6 Output Total Balance 1067.3 304 329.6 Intake, IV 122.3 104 109.6 Intake, Oral 945 200 220 Patient 115 lb 115 lb Weight Physical Exam: Gen: NAD HEENT: normal Lungs: Scattered wheezes, normal resp. effort Heart: RRR, S1, S2, no murmurs Abdomen: Soft, nontender, no masses Extremities: No clubbing, cyanosis, or edema. Neuro: Alert and oriented x 3, cranial nerves intact Current Medications: Current Medications Sig/Georgi Start time Last Medication Dose Route Stop Time Status Admin Albuterol Sulfate 3 ML Q4P PRN 08/08 1400 AC INH Alprazolam 0.5 MG ONCE PRN 08/08 0915 DC 08/08 PO 08/08 1800 0932 Aspirin Buffered 81 MG DAILY 08/08 1000 AC 08/08 PO 0932 Atorvastatin Calcium 80 MG DAILY 08/07 1840 AC 08/08 PO 0932 Bisacodyl 5 MG DAILY NEEDED PRN 08/08 1200 AC PO Enoxaparin Sodium 50 MG BID 08/08 1240 AC 08/08 SC 1531 Furosemide 60 MG DAILY 08/08 1000 AC 08/08 PO 0932 Guaifenesin 10 ML Q6P PRN 08/07 1845 AC 08/08 PO 1104 Heparin Sodium/ 25,000 UNIT ONCE ONE 08/07 1645 DC 08/07 Dextrose IV 08/08 0244 1749 Dextrose/Water 500 ML Losartan Potassium 12.5 MG DAILY 08/07 1840 AC 08/08 PO 0933 Magnesium Oxide 400 MG ONE ONE 08/08 1445 DC 08/08 PO 08/08 1446 1547 Metoprolol Succinate 50 MG DAILY 08/07 1842 AC 08/08 PO 0932 Morphine Sulfate 2 MG ONCE ONE 08/08 0245 DC 08/08 IV 08/08 0246 0242 Morphine Sulfate 15 MG Q4P PRN 08/07 1845 AC 08/08 PO 0230 Omeprazole 40 MG DAILY AC 08/07 1843 AC 08/08 PO 0610 Patient Medication 1 UNIT ONE NR 08/08 1300 DC Teaching ED 08/08 1900 Polyethylene Glycol 17 GM DAILY 08/07 1850 AC 08/07 PO 2142 Potassium Chloride 40 MEQ .STK-MED ONE 08/08 0226 DC PO 08/08 0227 Potassium Chloride 40 MEQ ONCE ONE 08/07 2245 DC 08/07 PO 08/07 2246 2244 Potassium Chloride 40 MEQ ONCE ONE 08/07 2130 DC 08/08 PO 08/07 2131 0229 Senna/Docusate Sodium 1 TAB BID PRN 08/08 1246 AC PO Senna/Docusate Sodium 1 TAB BID 08/08 1152 DC PO Senna/Docusate Sodium 1 TAB BID 08/07 2200 DC 08/08 PO 0932 Results Last 48 Hrs of Labs/Mics: Laboratory Tests 08/08/16 1140: APTT 61 H 08/08/16 0600: Anion Gap 11, Estimated GFR > 60, BUN/Creatinine Ratio 17.1, Magnesium 1.7, CBC w Diff NO MAN DIFF REQ, RBC 3.25 L, MCV 92.8, MCH 31.5 H, RDW 17.1 H, MPV 7.8 , Gran % 82.9 H, Lymphocytes % 7.4 L, Monocytes % 8.8, Eosinophils % 0.8, Basophils % 0.1, Absolute Granulocytes 8.1 H, Absolute Lymphocytes 0.7 L, Absolute Monocytes 0.9 H, Absolute Eosinophils 0.1, Absolute Basophils 0, PUBS MCHC 34.0 08/07/16 2300: APTT 63 H 08/07/16 2100: Anion Gap 13, Estimated GFR > 60, BUN/Creatinine Ratio 16.3, Troponin I 0.08 01/01/17 2053: Sodium Cancelled, Potassium Cancelled, Chloride Cancelled, Carbon Dioxide Cancelled, Anion Gap Cancelled, BUN Cancelled, Creatinine Cancelled, BUN/ Creatinine Ratio Cancelled 08/07/16 1340: Anion Gap 14, Estimated GFR > 60, BUN/Creatinine Ratio 17.5, Glucose 152 H, Calcium 9.0, Total Bilirubin 0.5, AST 30, ALT 48, Alkaline Phosphatase 190 H, Troponin I 0.04, [id number] Pept 2510 H, Total Protein 6.1 L, Albumin 3.5, Globulin 2.6, Albumin/Globulin Ratio 1.3, PT 10.7, INR 1.02, APTT 24 L, CBC w Diff NO MAN DIFF REQ, RBC 3.53 L, MCV 92.9, MCH 31.2 H, RDW 16.5 H, MPV 7.6, Gran % 82.7 H, Lymphocytes % 10.4 L, Monocytes % 6.4, Eosinophils % 0.4, Basophils % 0.1, Absolute Granulocytes 7.8 H, Absolute Lymphocytes 1.0 L, Absolute Monocytes 0.6, Absolute Eosinophils 0, Absolute Basophils 0, PUBS MCHC 33.6 Assessment/Plan Assessment/Plan Assessment: 1. Stage IV metastatic lung cancer 2. Pulmonary embolism 3. Recent takotsubo cardiomyopathy with recovery of LVEF 4. Left ventricular thrombus Plan: * Continue Lovenox at therapeutic dose * Continue losartan and metoprolol * Would hold off for now on repeating echocardiogram since she had an echocardiogram at [place] 2 weeks ago. Continue telemetry? Not applicable
--- NOTE | 2016-08-08 20:13 | RADIOLOGY REPORT ---
EXAMINATION: XR PORTABLE CHEST CLINICAL INFORMATION: Pulmonary malignancy. Diminished breath sounds. Evaluate for pneumonia. COMPARISON: CTA chest 08/07/2016. TECHNIQUE: Portable view of the chest was obtained. FINDINGS: Allowing for differences in technique, patient positioning and aeration of the lungs, single AP view of the chest demonstrates no significant interval changes. Redemonstrated is volume loss within the left lung secondary to a previously noted prominent left hilar and mediastinal lymph nodes with associated mass effect upon the left mainstem bronchus. There are hazy opacities within the left lung which likely reflect atelectasis. No focal airspace consolidation is identified. The right lung remains grossly clear. There are no pleural effusions or pneumothoraces. Cardiac mediastinal contours are stable and there is persistent leftward mediastinal shift secondary to left lung volume loss. IMPRESSION: Persistent left lung volume loss secondary to previously noted prominent lymph nodes within the mediastinum and left hilum with associated narrowing of the left mainstem bronchus. No new airspace consolidation is identified. The right lung is grossly clear. No pleural effusions or pneumothoraces.
[2016-08-08 22:00] VITALS: BP 110/70
--- NOTE | 2016-08-09 06:28 | PN- Housestaff ---
BLAYNE LEON,[facility] 08/09/16 0628: Subjective Follow-up For: Pulmonary embolism Tele-Events Since Last Visit: Sinus rhythm, rate 84-91, no events Subjective: Patient was seen and examined this morning, she was lying comfortably on her bed with her daughter and at bedside. It has been reported that yesterday overnight when she went to the bathroom she started to have a panic attack and difficulty breathing because she didn't have the nasal cannula, the attack was resolved once she rest on the bed and had the nasal cannula on. Also reported dizziness on rest or ambulation.This morning she denied any shortness of breath, chest pain, palpitation, nausea or vomiting. She had bowel movement last night. The family is concerned regarding the coordination for chemotherapy and radiotherapy. Review of Systems Constitutional: Denies: chills, fever. EENTM: Denies: blurred vision, double vision, visual changes, nasal congestion. Cardiovascular: Denies: chest pain, orthopena, palpitations, syncope. Respiratory: Reports: cough, short of breath. Gastrointestinal: Denies: abdominal pain, constipation, diarrhea, nausea, vomiting. Genitourinary: Denies: dysuria, hematuria. Musculoskeletal: Denies: back pain, joint pain. Skin: Denies: rash. Neurological/Psychological: Reports: anxiety. Denies: headache. Objective Last 24 Hrs of Vital Signs/I&O Vital Signs Date Time Temp Pulse Resp B/P Pulse O2 O2 Flow FiO2 Ox Delivery Rate 08/09 0934 95 120/80 08/09 0931 95 120/80 08/09 0921 98.2 95 20 120/80 91 Nasal 1.5L Cannula 08/09 0827 95 Nasal 2.0L Cannula 08/08 2231 95 Nasal 2.0L Cannula 08/08 2200 97.8 78 20 110/70 96 08/08 1530 98.2 91 20 102/60 91 Nasal 2.0L Cannula 08/08 1346 Nasal 2.0L Cannula Intake & Output 08/09 1600 08/09 0800 08/09 0000 Intake Total 100 325 Output Total Balance 100 325 Intake, Oral 100 325 Patient 52.163 kg Weight Physical Exam General Appearance: Alert, Oriented X3, Cooperative, No Acute Distress Skin: No Rashes HEENT: Atraumatic, PERRLA, EOMI, Mucous Membr. moist/pink Neck: Supple, No JVD Cardiovascular: Regular Rate, Normal S1, Normal S2, No Murmurs Lungs: Clear to Auscultation, Normal Air Movement Abdomen: Normal Bowel Sounds, Soft, No Tenderness Neurological: Normal Speech, Strength at 5/5 X4 Ext, Normal Tone, Sensation Intact, Cranial Nerves 3-12 NL, Reflexes 2+ Extremities: No Clubbing, No Cyanosis, No Edema Vascular: Normal Pulses Current Medications: Current Medications Sig/Georgi Start time Last Medication Dose Route Stop Time Status Admin Albuterol Sulfate 2 PUF EVERY 4 HRS/AWAKE 08/09 1400 AC 08/09 INH 1240 Albuterol Sulfate 3 ML Q4P PRN 08/08 1400 AC INH Alprazolam 0.25 MG TID PRN 08/09 1130 AC 08/09 PO 08/16 1129 1215 Aspirin Buffered 81 MG DAILY 08/08 1000 AC 08/09 PO 0933 Atorvastatin Calcium 80 MG DAILY 08/07 1840 AC 08/09 PO 0934 Bisacodyl 5 MG DAILY NEEDED PRN 08/08 1200 AC PO Enoxaparin Sodium 50 MG BID 08/08 1240 AC 08/09 SC 0937 Furosemide 60 MG DAILY 08/08 1000 AC 08/09 PO 0933 Guaifenesin 10 ML .STK-MED ONE 08/09 0134 DC PO 08/09 0135 Guaifenesin 10 ML .STK-MED ONE 08/08 2049 DC PO 08/08 2050 Guaifenesin 10 ML Q6P PRN 08/07 1845 AC 08/09 PO 0800 Losartan Potassium 12.5 MG DAILY 08/07 1840 AC 08/09 PO 0931 Metoprolol Succinate 50 MG DAILY 08/07 184 AC 08/09 PO 0934 Morphine Sulfate 15 MG Q4P PRN 08/07 1845 AC 08/09 PO 0137 Omeprazole 40 MG DAILY AC 08/07 1843 AC 08/09 PO 0604 Patient Medication 1 ED .STK-MED ONE 08/09 1409 ID Teaching ED 08/09 1410 Patient Medication 1 UNIT ONE NR 08/08 1300 ID Teaching ED 08/08 1900 Polyethylene Glycol 17 GM DAILY 08/07 1850 AC 08/09 PO 0928 Senna/Docusate Sodium 1 TAB BID PRN 08/08 1246 AC PO Last 24 Hrs of Lab/Yusuf Results Last 24 Hrs of Labs/Mics: Laboratory Tests 08/09/16 0610: Anion Gap 11, Estimated GFR > 60, BUN/Creatinine Ratio 15.7, Magnesium 1.7, CBC w Diff NO MAN DIFF REQ, RBC 3.22 L, MCV 93.1, MCH 31.3 H, RDW 16.9 H, MPV 7.8 , Gran % 76.1 H, Lymphocytes % 11.8 L, Monocytes % 9.4 H, Eosinophils % 2.3, Basophils % 0.4, Absolute Granulocytes 6.0, Absolute Lymphocytes 0.9 L, Absolute Monocytes 0.7 H, Absolute Eosinophils 0.2, Absolute Basophils 0, PUBS MCHC 33.6 Assessment/Plan Assessment: 71 y/o F with PMHx of metastatic lung cancer, takotsubo cardiomyopathy with LVEF of 25% c/b 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 #PE: CTA of Chest with small right posterior subsegmental PE of indeterminate chronicity. Unclear if this is the underlying etiology for her dyspnea which could also be due to progression of her metastatic lung cancer. Patient had been taking Lovenox since the beginning of July 2016, thus Dr. Gastelum felt that it is difficult to classify this as a LMWH failure. * Hem/onc following. Appreciate their recs. * Lovenox 1 mg/kg SQ BID started. * Patient at 2 L nasal cannula with saturation 94% * Albuterol inhaler with spacer for wheezing was ordered #Anexiety * Start Xanaxa 0.25 mg 3 times a day when necessary for anxiety #Metastatic lung cancer: CXR today with persistent left lung volume loss secondary to lymphadenopathy and associated narrowing of the left mainstem bronchus. * Follow up with Dr. Robins for initiation of chemotherapy. * Consider arrangements for port line placement * Follow up with Dr. Gracia for continuation of radiation therapy. * Pulmonology consulted per patient and her 's request. Appreciate their recs. Dr. Salmeron saw the patient today, pulmonology recommendation are appreciated. * Encourage incentive spirometry. * Wean down oxygen as tolerated. #Takotsubo cardiomyopathy: * Hold off on repeating ECHO as patient had repeat ECHO at [place] 2 weeks ago. * Continue Toprol XL 50 mg PO QD and losartan 12.5 mg PO QD. #Chronic pain: Secondary to metastatic lung cancer. * Morphine 15 mg PO Q4H pRN. * Scheduled Miralax and PRN Senna and Dulcolax to prevent opioid-induced constipation. Diet: Heart Healthy DVT PPx: Lovenox and ALPs CODE: FULL Problem List: 1. Takotsubo cardiomyopathy 2. Metastatic lung cancer (metastasis from lung to other site) 3. Pulmonary embolus Pain Ratin Pain Location: none Pain Goal: Remain pain free Pain Plan: Morphine 15 mg PO Q4H PRN Tomorrow's Labs & Rationales: [employer]ING [employer] GAUGER to monitor H&H CMP for electrolyte and kidney function in the setting of Lasix Liver function test MAKENZIE BALDERAS MD 08/09/16 1845: Attending MD Review Statement Attending Statement Attending MD Statement: examined this patient, discuss w/resident/PA/BRINEYARD SUPERVISOR, agreed w/resident/PA/BRINEYARD SUPERVISOR, discussed with family, reviewed EMR data (avail), discussed with nursing, discussed with case mgmt, amended to note Attending Assessment/Plan: The patient was seen and discussed with house staff. Agree with assessment and plan of care.
--- NOTE | 2016-08-09 07:24 | PN- Oncology ---
Subjective Subjective: Offers no new complaints Review of Systems: 12 point review of systems unchanged Objective Vital Signs and I&Os Vital Signs Date Time Temp Pulse Resp B/P Pulse O2 O2 Flow FiO2 Ox Delivery Rate 08/08 2231 95 Nasal 2.0L Cannula 08/08 1530 98.2 91 20 102/60 91 Nasal 2.0L Cannula 08/08 1346 Nasal 2.0L Cannula 08/08 0933 84 138/70 08/08 0932 84 138/70 08/08 0900 98.2 84 18 138/70 95 Nasal 2.0L Cannula 08/08 0800 Nasal 2.0L Cannula Intake & Output 08/09 0800 08/09 0000 08/08 1600 08/08 0800 08/08 0000 08/07 1600 Intake Total 059 422 7124.3 304 329.6 Output Total Balance 401 210 2351.3 304 329.6 Intake, IV 122.3 104 109.6 Intake, Oral 100 325 945 200 220 Patient 115 lb 115 lb Weight Gen.: in NAD ENT: Sclera anicteric Chest: Normal respiratory effort, decreased breath sounds Cor: RRR, no extra sounds Abdomen: Soft, bowel sounds present, no tenderness, no rebound Extremities: Without clubbing, cyanosis, or asymmetric edema Neurology: Alert and oriented 3, no gross deficit Current Medications: Current Medications Sig/Georgi Start time Last Medication Dose Route Stop Time Status Admin Albuterol Sulfate 3 ML Q4P PRN 08/08 1400 AC INH Alprazolam 0.5 MG ONCE PRN 08/08 0915 DC 08/08 PO 08/08 1800 0932 Aspirin Buffered 81 MG DAILY 08/08 1000 AC 08/08 PO 0932 Atorvastatin Calcium 80 MG DAILY 08/07 1840 AC 08/08 PO 0932 Bisacodyl 5 MG DAILY NEEDED PRN 08/08 1200 AC PO Enoxaparin Sodium 50 MG BID 08/08 1240 AC 08/08 SC 2054 Furosemide 60 MG DAILY 08/08 1000 AC 08/08 PO 0932 Guaifenesin 10 ML .STK-MED ONE 08/08 2048 DC PO 08/08 2049 Guaifenesin 10 ML Q6P PRN 08/07 1845 AC 08/09 PO 0136 Losartan Potassium 12.5 MG DAILY 08/07 1840 AC 08/08 PO 0933 Magnesium Oxide 400 MG ONE ONE 08/08 1445 DC 08/08 PO 08/08 1446 1547 Metoprolol Succinate 50 MG DAILY 08/07 1842 AC 08/08 PO 0932 Morphine Sulfate 15 MG Q4P PRN 08/07 1845 AC 08/09 PO 0137 Omeprazole 40 MG DAILY AC 08/07 1843 AC 08/09 PO 0604 Patient Medication 1 UNIT ONE NR 08/08 1300 DC Teaching ED 08/08 1900 Polyethylene Glycol 17 GM DAILY 08/07 1850 AC 08/07 PO 2142 Senna/Docusate Sodium 1 TAB BID PRN 08/08 1246 AC PO Senna/Docusate Sodium 1 TAB BID 08/08 1152 DC PO Senna/Docusate Sodium 1 TAB BID 08/07 2200 DC 08/08 PO 0932 Results Last 24 Hours of Lab Results: Laboratory Tests 08/09 08/08 0610 1140 Chemistry Sodium Pending Potassium Pending Chloride Pending Carbon Dioxide Pending Anion Gap Pending BUN Pending Creatinine Pending BUN/Creatinine Ratio Pending Magnesium Pending Coagulation APTT (25 - 37 SEC) 61 H Hematology CBC w Diff Pending WBC Pending RBC Pending Hgb Pending Hct Pending MCV Pending MCH Pending RDW Pending Plt Count Pending MPV Pending PUBS MCHC Pending Assessment/Plan Assessment/Recommendations: 1. Dyspnea-multifactorial in origin Recommend- Continue Lovenox Potential systemic chemotherapy as outpatient 2. Metastatic lung cancer-overall poor performance status Possible chemotherapy as an outpatient
[2016-08-09 08:03] LABS: ABSOLUTE BASOPHIL COUNT 0 /CUMM (0.0-0.2); ABSOLUTE EOSINOPHIL COUNT 0.2 /CUMM (0.0-0.7); ABSOLUTE LYMPH COUNT 0.9 /CUMM (1.2-3.4); ABSOLUTE MONOCYTE COUNT 0.7 /CUMM (0.10-0.60); BASOPHIL % 0.4 % (0.0-2.0); EOSINOPHIL % 2.3 % (0-5); GRANULOCYTE % 76.1 % (42.2-75.2); MEAN CORPUSCULAR HGB 31.3 PG (27.0-31.0); MEAN CORPUSCULAR HGB CONC 33.6 G/DL (33.0-37.0); MEAN CORPUSCULAR VOLUME 93.1 FL (81.0-99.0); MEAN PLATELET VOLUME 7.8 FL (7.4-10.4); PLATELET COUNT 459 /CUMM (130-400); RBC DISTRIBUTION WIDTH 16.9 % (11.5-14.5); RED BLOOD CELL CT 3.22 /CUMM (4.20-5.40); WHITE BLOOD CELL COUNT 7.8 /CUMM (4.8-10.8)
[2016-08-09 09:21] VITALS: BP 120/80
--- NOTE | 2016-08-09 12:27 | PN- Cardiology ---
Subjective Subjective: The patient reports that she is comfortable. No chest pain. No palpitations. No diaphoresis. She apparently had a panic attack overnight when attempting to get to the bathroom. Objective Vital Signs and I&Os Vital Signs Date Time Temp Pulse Resp B/P Pulse O2 O2 Flow FiO2 Ox Delivery Rate 08/09 0934 95 120/80 08/09 0931 95 120/80 08/09 0921 98.2 95 20 120/80 91 Nasal 1.5L Cannula 08/09 0827 95 Nasal 2.0L Cannula 08/09 08 91 Nasal 2.0L Cannula 08/08 2231 95 Nasal 2.0L Cannula 08/08 2200 97.8 78 20 110/70 96 08/08 1530 98.2 91 20 102/60 91 Nasal 2.0L Cannula 08/08 1346 Nasal 2.0L Cannula Intake & Output 08/09 1600 08/09 0800 08/09 0000 08/08 1600 08/08 0800 08/08 0000 Intake Total 635 987 9752.3 304 329.6 Output Total Balance 315 088 4589.3 304 329.6 Intake, IV 122.3 104 109.6 Intake, Oral 100 325 945 200 220 Patient 115 lb 115 lb Weight Physical Exam: Gen: NAD HEENT: normal Lungs: Scattered wheezes, normal resp. effort Heart: RRR, S1, S2, no murmurs Abdomen: Soft, nontender, no masses Extremities: No clubbing, cyanosis, or edema. Neuro: Alert and oriented x 3, cranial nerves intact Current Medications: Current Medications Sig/Georgi Start time Last Medication Dose Route Stop Time Status Admin Albuterol Sulfate 2 PUF EVERY 4 HRS/AWAKE 08/09 1400 AC INH Albuterol Sulfate 3 ML Q4P PRN 08/08 1400 AC INH Alprazolam 0.25 MG TID PRN 08/09 1130 AC 08/09 PO 08/16 1129 1215 Alprazolam 0.5 MG ONCE PRN 08/08 0915 DC 08/08 PO 08/08 1800 0932 Aspirin Buffered 81 MG DAILY 08/08 1000 AC 08/09 PO 0933 Atorvastatin Calcium 80 MG DAILY 08/07 1840 AC 08/09 PO 0934 Bisacodyl 5 MG DAILY NEEDED PRN 08/08 1200 AC PO Enoxaparin Sodium 50 MG BID 08/08 1240 AC 08/09 SC 0937 Furosemide 60 MG DAILY 08/08 1000 AC 08/09 PO 0933 Guaifenesin 10 ML .STK-MED ONE 08/09 0134 DC PO 08/09 013 Guaifenesin 10 ML .STK-MED ONE 08/08 2048 DC PO 08/08 2049 Guaifenesin 10 ML Q6P PRN 08/07 1845 AC 08/09 PO 0800 Losartan Potassium 12.5 MG DAILY 08/07 1840 AC 08/09 PO 0931 Magnesium Oxide 400 MG ONE ONE 08/08 1445 DC 08/08 PO 08/08 1446 1547 Metoprolol Succinate 50 MG DAILY 08/07 184 AC 08/09 PO 0934 Morphine Sulfate 15 MG Q4P PRN 08/07 184 AC 08/09 PO 0137 Omeprazole 40 MG DAILY AC 08/07 184 AC 08/09 PO 0604 Patient Medication 1 UNIT ONE NR 08/08 1300 DC Teaching ED 08/08 1900 Polyethylene Glycol 17 GM DAILY 08/07 1850 AC 08/09 PO 0928 Senna/Docusate Sodium 1 TAB BID PRN 08/08 1246 AC PO Senna/Docusate Sodium 1 TAB BID 08/08 1152 DC PO Results Last 48 Hrs of Labs/Mics: Laboratory Tests 08/09/16 0610: Anion Gap 11, Estimated GFR > 60, BUN/Creatinine Ratio 15.7, Magnesium 1.7, CBC w Diff NO MAN DIFF REQ, RBC 3.22 L, MCV 93.1, MCH 31.3 H, RDW 16.9 H, MPV 7.8 , Gran % 76.1 H, Lymphocytes % 11.8 L, Monocytes % 9.4 H, Eosinophils % 2.3, Basophils % 0.4, Absolute Granulocytes 6.0, Absolute Lymphocytes 0.9 L, Absolute Monocytes 0.7 H, Absolute Eosinophils 0.2, Absolute Basophils 0, PUBS MCHC 33.6 08/08/16 1140: APTT 61 H 08/08/16 0600: Anion Gap 11, Estimated GFR > 60, BUN/Creatinine Ratio 17.1, Magnesium 1.7, CBC w Diff NO MAN DIFF REQ, RBC 3.25 L, MCV 92.8, MCH 31.5 H, RDW 17.1 H, MPV 7.8 , Gran % 82.9 H, Lymphocytes % 7.4 L, Monocytes % 8.8, Eosinophils % 0.8, Basophils % 0.1, Absolute Granulocytes 8.1 H, Absolute Lymphocytes 0.7 L, Absolute Monocytes 0.9 H, Absolute Eosinophils 0.1, Absolute Basophils 0, PUBS MCHC 34.0 08/07/16 2300: APTT 63 H 08/07/16 2100: Anion Gap 13, Estimated GFR > 60, BUN/Creatinine Ratio 16.3, Troponin I 0.08 08/07/16 2053: Sodium Cancelled, Potassium Cancelled, Chloride Cancelled, Carbon Dioxide Cancelled, Anion Gap Cancelled, BUN Cancelled, Creatinine Cancelled, BUN/ Creatinine Ratio Cancelled 08/07/16 1340: Anion Gap 14, Estimated GFR > 60, BUN/Creatinine Ratio 17.5, Glucose 152 H, Calcium 9.0, Total Bilirubin 0.5, AST 30, ALT 48, Alkaline Phosphatase 190 H, Troponin I 0.04, Ckz-W-Psuchszocdn Pept 2510 H, Total Protein 6.1 L, Albumin 3.5, Globulin 2.6, Albumin/Globulin Ratio 1.3, PT 10.7, INR 1.02, APTT 24 L, CBC w Diff NO MAN DIFF REQ, RBC 3.53 L, MCV 92.9, MCH 31.2 H, RDW 16.5 H, MPV 7.6, Gran % 82.7 H, Lymphocytes % 10.4 L, Monocytes % 6.4, Eosinophils % 0.4, Basophils % 0.1, Absolute Granulocytes 7.8 H, Absolute Lymphocytes 1.0 L, Absolute Monocytes 0.6, Absolute Eosinophils 0, Absolute Basophils 0, PUBS MCHC 33.6 Recent Imaging Studies: Chest x-ray: Persistent left lung volume loss secondary to previously noted prominent lymph nodes within the mediastinum and left hilum with associated narrowing of the left mainstem bronchus. No new airspace consolidation is identified. The right lung is grossly clear. No pleural effusions or pneumothoraces. Assessment/Plan Assessment/Plan Assessment: 1. Stage IV metastatic lung cancer 2. Pulmonary embolism 3. Recent takotsubo cardiomyopathy with recovery of LVEF 4. Left ventricular thrombus Plan: * Continue Lovenox at therapeutic dose * Continue losartan and metoprolol * Would hold off for now on repeating echocardiogram since she had an echocardiogram at [place] 2 weeks ago. * Follow up in one month after discharge. Continue telemetry? No
--- NOTE | 2016-08-09 15:32 | Cons- Pulmonary ---
General Information and HPI Consulting Request Date of Consult: 08/09/16 Requested By: mED TEAM History of Present Illness: This is 71-year-old female with past medical history of hypertension, hyperlipidemia, ex-smoker, migraine headache who was recently diagnosed with stage IV lung cancer with metastases to brain, liver and bone status post gamma knife radiation to brain and completed 10 radiation treatment for lower back lesion and currently undergoing / radiation treatment for scapular lesion with most recent radiation on 08/05/2016. 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 At the beginning of July 2016 patient underwent repeat MRI for brain metastases and found to have SIGMOID sinus clot and as per hematology patient anticoagulation was switched to Lovenox. Patient was at her usual health up until last Monday, when she underwent her fourth radiation treatment for her shoulder after which she complained of epigastric discomfort and was started on Magic mouthwash with significant symptom improvement. Patient has been having chronic nonproductive cough with intermittent hemoptysis for possible 2 months due to her underlying lung cancer. Yesterday night she got more short of breath than usual with subsequent improvement in her symptoms. This morning she remained short of breath and received 2 albuterol nebulizer treatment with minimal symptom improvement. This afternoon she had a little amount of soup and lunch after which she started feeling nauseous and had small non-bloody vomiting. Due to her persistent shortness of breath and nausea patient was brought in to ER for further evaluation. In ER, patient noted having mild shortness of breath with no residual nausea or vomiting. Her O2 sat noted 95% on room air. Due to history of lung cancer patient underwent CTA of abdomen and chest noted with right lower lobe pulmonary artery subsegmental PE with worsening tumor burden, also noted atrophic right kidney with chronic right renal artery occlusion. Patient denied any chest pain, palpitation, dizziness, lightheadedness, nausea, vomiting Patient's family was at bedside. Allergies/Medications Allergies: Coded Allergies: oxycodone (From Percocet) (UNKNOWN 12/01/15) PERCOCET PER ANTIBIOTIC ORDER SHEET OF 12/01/15 (SJS) Home Med List: Aspirin (Ecotrin*) 81 MG TABLET.DR 1 TAB PO DAILY HEART/BLOOD (Reported) Atorvastatin Calcium (Lipitor) 80 MG TABLET 1 TAB PO DAILY CHOLESTEROL ( Reported) Citalopram Hydrobromide (Citalopram HBr) (Unknown Strength) TABLET (Unknown Dose) PO DAILY MENTAL HEALTH (Reported) Enoxaparin Sodium (Lovenox) 80 MG/0.8 ML SYRINGE 0.8 ML SC DAILY BLOOD THINNER (Reported) Furosemide (Lasix) 20 MG TABLET 3 TAB PO DAILY DIURETIC (Reported) Hydrocodone Bit/Homatrop Me-Br (Hydrocodone-Homatropine Syrup) (Unknown Strength ) SYRUP (Unknown Dose) PO Q4H PRN COUGH (Reported) Losartan Potassium (Cozaar) 25 MG TABLET 0.5 TAB PO DAILY HEART/BP (Reported) Metoprolol Succinate 50 MG TAB.ER.24H 1 TAB PO DAILY HEART/BP (Reported) Morphine Sulfate 15 MG TABLET 1 TAB PO Q4H PRN PAIN (Reported) Multivit-Min/FA/Lycopen/Lutein (Centrum Silver Tablet) 0.4 MG-300 MCG-250 MCG TABLET 1 TAB PO DAILY SUPPLEMENT (Reported) Pantoprazole Sodium 40 MG TABLET. 1 TAB PO DAILY GI (Reported) Review of Systems Review of Systems Constitutional: Reports: see HPI. Past History Travel History Traveled to [place] past 21 day No Medical History Blood Transfusion Hx: No Neurological: CVA, HEADACHES PER PT EENT: NONE Cardiovascular: cardiomyopathy, hypertension Respiratory: NONE Gastrointestinal: NONE Hepatic: NONE Renal: NONE Musculoskeletal: NONE Psychiatric: NONE Endocrine: NONE Blood Disorders: NONE Cancer(s): lung cancer, WITH BRAIN and bony [facility] SPECIALIST ICU/Reproductive: NONE Surgical History Surgical History: none (abdominal aneurysm repair) Psychosocial History Where Do You Live? Home Services at Home: None Smoking Status: Former Smoker Exam & Diagnostic Data Last 24 Hrs of Vital Signs/I&O Vital Signs Date Time Temp Pulse Resp B/P Pulse O2 O2 Flow FiO2 Ox Delivery Rate 08/09 0934 95 120/80 08/09 0931 95 120/80 08/09 0921 98.2 95 20 120/80 91 Nasal 1.5L Cannula 08/09 08 95 Nasal 2.0L Cannula 08/09 08 91 Nasal 2.0L Cannula 08/08 2231 95 Nasal 2.0L Cannula 08/08 2200 97.8 78 20 110/70 96 Intake & Output 08/09 1600 08/09 0808/09 0000 Intake Total 100 325 Output Total Balance 100 325 Intake, Oral 100 325 Patient 115 lb Weight Last 48 Hrs of Labs/Yusuf: Laboratory Tests 08/09/16 0610: Anion Gap 11, Estimated GFR > 60, BUN/Creatinine Ratio 15.7, Magnesium 1.7, CBC w Diff NO MAN DIFF REQ, RBC 3.22 L, MCV 93.1, MCH 31.3 H, RDW 16.9 H, MPV 7.8 , Gran % 76.1 H, Lymphocytes % 11.8 L, Monocytes % 9.4 H, Eosinophils % 2.3, Basophils % 0.4, Absolute Granulocytes 6.0, Absolute Lymphocytes 0.9 L, Absolute Monocytes 0.7 H, Absolute Eosinophils 0.2, Absolute Basophils 0, PUBS MCHC 33.6 08/08/16 1140: APTT 61 H 08/08/16 0600: Anion Gap 11, Estimated GFR > 60, BUN/Creatinine Ratio 17.1, Magnesium 1.7, CBC w Diff NO MAN DIFF REQ, RBC 3.25 L, MCV 92.8, MCH 31.5 H, RDW 17.1 H, MPV 7.8 , Gran % 82.9 H, Lymphocytes % 7.4 L, Monocytes % 8.8, Eosinophils % 0.8, Basophils % 0.1, Absolute Granulocytes 8.1 H, Absolute Lymphocytes 0.7 L, Absolute Monocytes 0.9 H, Absolute Eosinophils 0.1, Absolute Basophils 0, PUBS MCHC 34.0 08/07/16 2300: APTT 63 H 08/07/16 2100: Anion Gap 13, Estimated GFR > 60, BUN/Creatinine Ratio 16.3, Troponin I 0.08 08/07/163: Sodium Cancelled, Potassium Cancelled, Chloride Cancelled, Carbon Dioxide Cancelled, Anion Gap Cancelled, BUN Cancelled, Creatinine Cancelled, BUN/ Creatinine Ratio Cancelled Assessment/Plan Impression/Plan: Physical Exam General Appearance Alert, Oriented X3, Cooperative, Mild Distress Skin No Rashes HEENT Atraumatic, PERRLA, EOMI, Mucous Membr. moist/pink Neck Supple Cardiovascular Regular Rate, Normal S1, Normal S2, No Murmurs Lungs Normal Air Movement, occasional wheezing on lung exam Abdomen Normal Bowel Sounds, Soft, No Tenderness Neurological Normal Speech, Strength at 5/5 X4 Ext, Normal Tone, Sensation Intact, Cranial Nerves 3-12 NL Extremities No Edema, Normal Pulses Vascular Normal Pulses, Pulses Symmetrical SIGNIFICANT DATA CT scan of the chest reviewed which showed stable dilatation of the thoracic aorta? 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 Sodium 132, white count 7.8 hemog IMPRESSION This is an unfortunate 71-year-old lady who was seen by me before in the emergency room in the early part of June subsequently followed at [facility] with metastatic adenocarcinoma of the lung. Unfortunately she has multiple metastasis in multiple lymph nodes in the abdomen and the chest, endobronchial lesion in the left side with near obstruction of the left upper lobe and lingula, multiple bone metastases, multiple brain metastasis with status post gamma knife therapy, significant cardiomyopathy, suspected to be stress induced with intracardiac thrombus with multiple strokes, recent sigmoid sinus thrombosis for which she is on anticoagulation now here with * Shortness of breath which is slowly worsening related to progressive lung cancer with significant metastasis in the mediastinum and in the left hilum with endobronchial lesion in the left side with left upper lobe and lingula atelectasis with probable mild lymphangitic involvement in the left side. She also has a small pulmonary embolism which is contributing to her shortness of breath * Significant pain in the scapular area for which she is undergoing radiation, multiple bony metastases which has increased in size since June in a patient with worsening adenocarcinoma * Status post gamma knife radiation to the brain with subsequent sigmoid sinus thrombosis for which she is on Lovenox * No clinical evidence of far suggestive of acute bacterial pneumonitis * Cardiomyopathy with low ejection fraction with previous intracardiac thrombus on anticoagulation * Severe peripheral vascular disease with aortic aneurysm * Worsening nausea with intra-abdominal metastases with ap hepatis lymphadenopathy noted in the previous CT RECOMMENDATION * Continue current therapy with her nebulizer as needed * Continue Lasix watch her creatinine * Aggressive bowel regimen * Follow liver enzymes * Lovenox 50 mg twice a day * Patient is undergoing ongoing radiation we'll discuss with radiation oncology to see whether she would be a candidate for radiation to the left hilum and left mediastinum * Please call general surgery Dr. Kunz to see the patient so that she could get a port put in for her chemotherapy Patient's overall performance status is very poor and she appears to be having rather galloping lung malignancy, overall goal of treatment should be undertaken. Prognosis appears very poor long-run. Consult Acknowledgment - Thank you for your consult request.
[2016-08-09 16:30] VITALS: BP 98/48
[2016-08-09 23:00] VITALS: BP 108/52
--- NOTE | 2016-08-10 06:36 | PN- Housestaff ---
BLAYNE LEON,[facility] 08/10/16 0636: Subjective Follow-up For: Pulmonary embolism Lung cancer with metastasis Tele-Events Since Last Visit: Sinus rhythm with sinus tachycardia, heart rate 80-100, no overnight events Subjective: Patient was seen and examined this morning, no overnight events reported by the patient or the nurses. No acute distress, vital signs are stable. Patient continued to be on 2 L oxygen with saturation 93% with presistant complaint of dry cough. She used the inhaler and reported improvement in her wheeze. For had an anxiety attack, Xanaxa seemed to help. Review of Systems Constitutional: Denies: chills, fever. Cardiovascular: Denies: chest pain, palpitations. Respiratory: Reports: cough, wheezing. Denies: sputum production. Gastrointestinal: Denies: abdominal pain, diarrhea, nausea, vomiting. Genitourinary: Denies: frequency, hematuria. Musculoskeletal: Denies: back pain, joint pain. Skin: Denies: jaundice, rash. Neurological/Psychological: Reports: anxiety. Denies: confusion, headache, numbness. Hematologic/Endocrine: Denies: bruising. Objective Last 24 Hrs of Vital Signs/I&O Vital Signs Date Time Temp Pulse Resp B/P Pulse O2 O2 Flow FiO2 Ox Delivery Rate 08/10 1015 116 120/80 08/10 1015 116 120/80 08/10 0823 97.8 116 20 120/80 93 Nasal 2.0L Cannula 08/10 0000 Nasal 2.0L Cannula 08/09 2300 98.7 99 24 108/52 92 Nasal 2.0L Cannula 08/09 1630 97.4 89 20 98/48 94 Nasal 1.5L Cannula 08/09 1608 Nasal 3.0L Cannula 08/09 1600 Nasal 2.0L Cannula Intake & Output 08/10 1600 08/10 0800 08/10 0000 Intake Total 100 200 Output Total Balance 100 200 Intake, IV 0 0 Intake, Oral 100 200 Number 0 0 Bowel Movements Physical Exam General Appearance: Alert, Oriented X3, Cooperative, No Acute Distress Skin: No Rashes HEENT: Atraumatic, PERRLA, EOMI Neck: Supple Cardiovascular: Regular Rate, Normal S1, Normal S2, No Murmurs Lungs: Clear to Auscultation, Intermittent wheeze bilateral Abdomen: Normal Bowel Sounds, Soft, No Tenderness Neurological: Normal Speech, Strength at 5/5 X4 Ext, Normal Tone, Sensation Intact, Cranial Nerves 3-12 NL, Reflexes 2+ Extremities: No Clubbing, No Cyanosis, No Edema, Normal Pulses Vascular: Normal Pulses Assessment/Plan Assessment: 71 y/o F with PMHx of metastatic lung cancer, takotsubo cardiomyopathy with LVEF of 25% c/b 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 #PE: CTA of Chest with small right posterior subsegmental PE of indeterminate chronicity. Unclear if this is the underlying etiology for her dyspnea which could also be due to progression of her metastatic lung cancer. Patient had been taking Lovenox since the beginning of July 2016, thus Dr. Gastelum felt that it is difficult to classify this as a LMWH failure. * Hem/onc following. Appreciate their recs. * Continue Lovenox 50 mg/kg SQ BID. * Albuterol inhaler with spacer for wheezing was ordered * Patient is refusing nebolizers * on 2L oxygen with saturation 93% #Anexiety * Continue Xanaxa 0.25 mg 3 times a day when necessary for anxiety #Metastatic lung cancer: CXR today with persistent left lung volume loss secondary to lymphadenopathy and associated narrowing of the left mainstem bronchus. * Follow up with Dr. Robins for initiation of chemotherapy. * Dr. Kunz was contacted for inpatient port line placement * Dr. Gracia evaluated the patient yesterday, patient went to radiotherpy yesterday at 2.30 pm and scheduled for 11 am this morning * Pulmonology consulted. pulmonology recommendation are appreciated, recommendation to start prednisone 20 mg for five days if wheezing and dyspnea presist * Encourage incentive spirometry. * Wean down oxygen as tolerated. #Takotsubo cardiomyopathy: * Hold off on repeating ECHO as patient had repeat ECHO at [facility] 2 weeks ago. * Continue Toprol XL 50 mg PO QD and losartan 12.5 mg PO QD. #Chronic pain: Secondary to metastatic lung cancer. * Morphine 15 mg PO Q4H pRN. * Scheduled Miralax and PRN Senna and Dulcolax to prevent opioid-induced constipation. Diet: Heart Healthy DVT PPx: Lovenox and ALPs CODE: FULL Problem List: 1. Takotsubo cardiomyopathy 2. Metastatic lung cancer (metastasis from lung to other site) 3. Pulmonary embolus Pain Ratin Pain Location: none Pain Goal: Remain pain free Pain Plan: Morphine 15 mg PO Q4H PRN Tomorrow's Labs & Rationales: cbc, CMP SHERRIE LEON,MAKENZIE 08/10/16 2339: Attending MD Review Statement Attending Statement Attending MD Statement: examined this patient, discuss w/resident/PA/PAINT PREPPER, agreed w/resident/PA/PAINT PREPPER, discussed with family, reviewed EMR data (avail), discussed with nursing, discussed with case mgmt, amended to note Attending Assessment/Plan: The patient was seen and discussed with house staff. Agree with the plan of care as outlined.
--- NOTE | 2016-08-10 07:22 | PN- Oncology ---
Subjective Subjective: Offers no new complaints, ambulating Review of Systems: 12 point review of systems otherwise unchanged Objective Vital Signs and I&Os Vital Signs Date Time Temp Pulse Resp B/P Pulse O2 O2 Flow FiO2 Ox Delivery Rate 08/10 0000 Nasal 2.0L Cannula 08/09 2300 98.7 99 24 108/52 92 Nasal 2.0L Cannula 08/09 1630 97.4 89 20 98/48 94 Nasal 1.5L Cannula 08/09 1608 Nasal 3.0L Cannula 08/09 1600 Nasal 2.0L Cannula 08/09 0934 95 120/80 08/09 0931 95 120/80 08/09 0921 98.2 95 20 120/80 91 Nasal 1.5L Cannula 08/09 0827 95 Nasal 2.0L Cannula 08/09 0800 91 Nasal 2.0L Cannula Intake & Output 08/10 0800 08/10 0000 08/09 1600 08/09 0800 08/09 0000 08/08 1600 Intake Total 100 200 400 807 113 8232.3 Output Total Balance 100 200 400 714 346 6512.3 Intake, IV 0 0 122.3 Intake, Oral 100 200 400 100 325 945 Number 0 0 0 Bowel Movements Patient 115 lb Weight Gen.: in NAD ENT: Sclera anicteric Chest: Normal respiratory effort, decreased breath sounds Cor: RRR, no extra sounds Abdomen: Soft, bowel sounds present, no tenderness, no rebound Extremities: Without clubbing, cyanosis, or asymmetric edema Neurology: Alert and oriented 3, no gross deficit Current Medications: Current Medications Sig/Georgi Start time Last Medication Dose Route Stop Time Status Admin Acetaminophen 650 MG Q4P PRN 08/10 0115 AC 08/10 PO 0110 Acetaminophen 650 MG .STK-MED ONE 08/09 1210 DC PO 08/09 1211 Albuterol Sulfate 2 PUF EVERY 4 HRS/AWAKE 08/09 1400 AC 08/09 INH 1240 Albuterol Sulfate 3 ML Q4P PRN 08/08 1400 AC INH Alprazolam 0.25 MG TID PRN 08/09 1130 AC 08/10 PO 08/16 1129 0110 Aspirin Buffered 81 MG DAILY 08/08 1000 AC 08/09 PO 0933 Atorvastatin Calcium 80 MG DAILY 08/07 1840 AC 08/09 PO 0934 Bisacodyl 5 MG DAILY NEEDED PRN 08/08 1200 AC PO Enoxaparin Sodium 50 MG BID 08/08 1240 AC 08/09 SC 2031 Furosemide 60 MG DAILY 08/08 1000 AC 08/09 PO 0933 Guaifenesin 10 ML Q6P PRN 08/07 184 DC 08/09 PO 0800 Guaifenesin/ 10 ML Q6P PRN 08/09 2015 AC 08/09 Dextromethorphan PO 203 Losartan Potassium 12.5 MG DAILY 08/07 1840 AC 08/09 PO 0931 Metoprolol Succinate 50 MG DAILY 08/07 184 AC 08/09 PO 0934 Morphine Sulfate 15 MG Q4P PRN 08/07 1845 AC 08/09 PO 0137 Omeprazole 40 MG DAILY AC 08/07 184 AC 08/10 PO 0644 Patient Medication 1 ED .ST-MED ONE 08/09 1409 IA Teaching ED 08/09 1410 Polyethylene Glycol 17 GM DAILY 08/07 1850 AC 08/09 PO 0928 Senna/Docusate Sodium 1 TAB BID PRN 08/08 1246 AC PO Results Last 24 Hours of Lab Results: Laboratory Tests 08/10 0610 Chemistry Sodium (137 - 145 mmol/L) 132 L Potassium (3.5 - 5.1 mmol/L) 3.6 Chloride (98 - 107 mmol/L) 93 L Carbon Dioxide (22 - 30 mmol/L) 27 Anion Gap (5 - 16) 11 BUN (7 - 17 mg/dL) 14 Creatinine (0.5 - 1.0 mg/dL) 0.8 Estimated GFR (>60 ml/min) > 60 BUN/Creatinine Ratio (7 - 25 %) 17.5 Total Bilirubin (0.2 - 1.3 mg/dL) 0.3 Direct Bilirubin (< 0.4 mg/dL) 0.3 AST (14 - 36 U/L) 21 ALT (9 - 52 U/L) 30 Alkaline Phosphatase (<127 U/L) 164 H Total Protein (6.3 - 8.2 g/dL) 5.3 L Albumin (3.5 - 5.0 g/dL) 2.8 L Hematology CBC w Diff Pending WBC Pending RBC Pending Hgb Pending Hct Pending MCV Pending MCH Pending RDW Pending Plt Count Pending MPV Pending PUBS MCHC Pending Assessment/Plan Assessment/Recommendations: 1. Advanced lung cancer-patient still desires systemic chemotherapy Recommend-patient was to have port placed this Monday by -please contact him see if this can be on post now 2. Pulmonary embolism-continue Lovenox
[2016-08-10 08:10] LABS: ABSOLUTE BASOPHIL COUNT 0 /CUMM (0.0-0.2); ABSOLUTE EOSINOPHIL COUNT 0.1 /CUMM (0.0-0.7); ABSOLUTE GRANULOCYTE CT 7.1 /CUMM (1.4-6.5); ABSOLUTE LYMPH COUNT 0.9 /CUMM (1.2-3.4); ABSOLUTE MONOCYTE COUNT 0.7 /CUMM (0.10-0.60); BASOPHIL % 0.4 % (0.0-2.0); EOSINOPHIL % 1.3 % (0-5); GRANULOCYTE % 80.2 % (42.2-75.2); HEMATOCRIT 30.1 % (37-47); MEAN CORPUSCULAR HGB 31.5 PG (27.0-31.0); MEAN CORPUSCULAR VOLUME 92.6 FL (81.0-99.0); MEAN PLATELET VOLUME 7.8 FL (7.4-10.4); PLATELET COUNT 458 /CUMM (130-400); RBC DISTRIBUTION WIDTH 16.6 % (11.5-14.5); RED BLOOD CELL CT 3.25 /CUMM (4.20-5.40); WHITE BLOOD CELL COUNT 8.9 /CUMM (4.8-10.8)
[2016-08-10 08:23] VITALS: BP 120/80
--- NOTE | 2016-08-10 09:27 | PN- Pulmonary ---
Subjective HPI/Critical Care Issues: Offers no new complaints, coughing, nonproductive Review of Systems: 12 point review of systems otherwise unchanged at the bedside Objective Current Medications: Current Medications Sig/Georgi Start time Last Medication Dose Route Stop Time Status Admin Acetaminophen 650 MG Q4P PRN 08/10 0115 AC 08/10 PO 0110 Acetaminophen 650 MG .STK-MED ONE 08/09 1210 DC PO 08/09 1211 Albuterol Sulfate 2 PUF EVERY 4 HRS/AWAKE 08/09 1400 AC 08/10 INH 0827 Albuterol Sulfate 3 ML Q4P PRN 08/08 1400 AC INH Alprazolam 0.25 MG TID PRN 08/09 1130 AC 08/10 PO 08/16 1129 0909 Aspirin Buffered 81 MG DAILY 08/08 1000 AC 08/09 PO 0933 Atorvastatin Calcium 80 MG DAILY 08/07 1840 AC 08/09 PO 0934 Bisacodyl 5 MG DAILY NEEDED PRN 08/08 1200 AC PO Enoxaparin Sodium 50 MG BID 08/08 1240 AC 08/09 SC 2031 Furosemide 60 MG DAILY 08/08 1000 AC 08/09 PO 0933 Guaifenesin 10 ML Q6P PRN 08/07 1845 DC 08/09 PO 0800 Guaifenesin/ 10 ML Q6P PRN 08/09 2015 AC 08/10 Dextromethorphan PO 0829 Losartan Potassium 12.5 MG DAILY 08/07 1840 AC 08/09 PO 0931 Metoprolol Succinate 50 MG DAILY 08/07 1842 AC 08/09 PO 0934 Morphine Sulfate 15 MG Q4P PRN 08/07 1845 AC 08/09 PO 0137 Omeprazole 40 MG DAILY AC 08/07 184 AC 08/10 PO 0644 Patient Medication 1 ED .STK-MED ONE 08/09 1409 DC Teaching ED 08/09 1410 Polyethylene Glycol 17 GM DAILY 08/07 1850 AC 08/09 PO 0928 Senna/Docusate Sodium 1 TAB BID PRN 08/08 1246 AC PO Laboratory Tests 08/10 08/09 0610 0610 Chemistry Sodium (137 - 145 mmol/L) 132 L 132 L Potassium (3.5 - 5.1 mmol/L) 3.6 4.0 Chloride (98 - 107 mmol/L) 93 L 94 L Carbon Dioxide (22 - 30 mmol/L) 27 27 Anion Gap (5 - 16) 11 11 BUN (7 - 17 mg/dL) 14 11 Creatinine (0.5 - 1.0 mg/dL) 0.8 0.7 Estimated GFR (>60 ml/min) > 60 > 60 BUN/Creatinine Ratio (7 - 25 %) 17.5 15.7 Magnesium (1.6 - 2.3 mg/dL) 1.7 Total Bilirubin (0.2 - 1.3 mg/dL) 0.3 Direct Bilirubin (< 0.4 mg/dL) 0.3 AST (14 - 36 U/L) 21 ALT (9 - 52 U/L) 30 Alkaline Phosphatase (<127 U/L) 164 H Total Protein (6.3 - 8.2 g/dL) 5.3 L Albumin (3.5 - 5.0 g/dL) 2.8 L Hematology CBC w Diff NO MAN DIFF REQ NO MAN DIFF REQ WBC (4.8 - 10.8 /CUMM) 8.9 7.8 RBC (4.20 - 5.40 /CUMM) 3.25 L 3.22 L Hgb (12.0 - 16.0 G/DL) 10.2 L 10.1 L Hct (37 - 47 %) 30.1 L 30.0 L MCV (81.0 - 99.0 FL) 92.6 93.1 MCH (27.0 - 31.0 PG) 31.5 H 31.3 H RDW (11.5 - 14.5 %) 16.6 H 16.9 H Plt Count (130 - 400 /CUMM) 458 H 459 H MPV (7.4 - 10.4 FL) 7.8 7.8 Gran % (42.2 - 75.2 %) 80.2 H 76.1 H Lymphocytes % (20.5 - 51.1 %) 9.9 L 11.8 L Monocytes % (1.7 - 9.3 %) 8.2 9.4 H Eosinophils % (0 - 5 %) 1.3 2.3 Basophils % (0.0 - 2.0 %) 0.4 0.4 Absolute Granulocytes (1.4 - 6.5 /CUMM) 7.1 H 6.0 Absolute Lymphocytes (1.2 - 3.4 /CUMM) 0.9 L 0.9 L Absolute Monocytes (0.10 - 0.60 /CUMM) 0.7 H 0.7 H Absolute Eosinophils (0.0 - 0.7 /CUMM) 0.1 0.2 Absolute Basophils (0.0 - 0.2 /CUMM) 0 0 PUBS MCHC (33.0 - 37.0 G/DL) 34.0 33.6 08/08 1140 Coagulation APTT (25 - 37 SEC) 61 H Vital Signs & I&O Last 24 Hrs of Vitals and I&O: Vital Signs Date Time Temp Pulse Resp B/P Pulse O2 O2 Flow FiO2 Ox Delivery Rate 08/10 0823 97.8 116 20 120/80 93 Nasal 2.0L Cannula 08/10 0000 Nasal 2.0L Cannula 08/09 2300 98.7 99 24 108/52 92 Nasal 2.0L Cannula 08/09 1630 97.4 89 20 98/48 94 Nasal 1.5L Cannula 08/09 1608 Nasal 3.0L Cannula 08/09 1600 Nasal 2.0L Cannula 08/09 0934 95 120/80 08/09 0931 95 120/80 Intake & Output 08/10 1600 08/10 0800 08/10 0000 Intake Total 100 200 Output Total Balance 100 200 Intake, IV 0 0 Intake, Oral 100 200 Number 0 0 Bowel Movements Impression/Plan Impression/Plan Impression/Plan: Physical Exam General Appearance Alert, Oriented X3, Cooperative, Mild Distress Skin No Rashes HEENT Atraumatic, PERRLA, EOMI, Mucous Membr. moist/pink Neck Supple Cardiovascular Regular Rate, Normal S1, Normal S2, No Murmurs Lungs Normal Air Movement, occasional wheezing on lung exam Abdomen Normal Bowel Sounds, Soft, No Tenderness Neurological Normal Speech, Strength at 5/5 X4 Ext, Normal Tone, Sensation Intact, Cranial Nerves 3-12 NL Extremities No Edema, Normal Pulses Vascular Normal Pulses, Pulses Symmetrical SIGNIFICANT DATA CT scan of the chest reviewed which showed stable dilatation of the thoracic aorta? 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 IMPRESSION This is an unfortunate 71-year-old lady who was seen by me before in the emergency room in the early part of June subsequently followed at [facility] with metastatic adenocarcinoma of the lung. Unfortunately she has multiple metastasis in multiple lymph nodes in the abdomen and the chest, endobronchial lesion in the left side with near obstruction of the left upper lobe and lingula, multiple bone metastases, multiple brain metastasis with status post gamma knife therapy, significant cardiomyopathy, suspected to be stress induced with intracardiac thrombus with multiple strokes, recent sigmoid sinus thrombosis for which she is on anticoagulation now here with * Shortness of breath which is slowly worsening related to progressive lung cancer with significant metastasis in the mediastinum and in the left hilum with endobronchial lesion in the left side with left upper lobe and lingula atelectasis with probable mild lymphangitic involvement in the left side. She also has a small pulmonary embolism which is contributing to her shortness of breath, Does have copd aswell with mild wheezing in the right side. * Significant pain in the scapular area for which she is undergoing radiation, multiple bony metastases which has increased in size since June in a patient with worsening adenocarcinoma * Status post gamma knife radiation to the brain with subsequent sigmoid sinus thrombosis for which she is on Lovenox * No clinical evidence of far suggestive of acute bacterial pneumonitis * Cardiomyopathy with low ejection fraction with previous intracardiac thrombus on anticoagulation * Severe peripheral vascular disease with aortic aneurysm * Worsening nausea with intra-abdominal metastases with ap hepatis lymphadenopathy noted in the previous CT RECOMMENDATION * Continue current therapy nebulizer as needed * Continue Lasix watch her creatinine * Aggressive bowel regimen * If wheezing and dyspnea worsens 20 mg po prednisone for five days can be tried * Lovenox 50 mg twice a day * Patient is undergoing ongoing radiation we'll discuss with radiation oncology to see whether she would be a candidate for radiation to the left hilum and left mediastinum. * Please call general surgery Dr. Kunz to see the patient so that she could get a port put in for her chemotherapy Patient's overall performance status is very poor and she appears to be having rather galloping lung malignancy, overall goal of treatment should be undertaken. Prognosis appears very poor long-run. Discussed with in detail
--- NOTE | 2016-08-10 10:08 | NUR ---
PHYSICAL THERAPY. PER DISCUSSION WITH NURSING PT WAS CX DUE TO UPCOMING RADIATION AT 11 AM & Pt RECENTLY GETTING UP TO THE BATHROOM W/ NURSING ASSIST. PT WILL FOLLOW-UP APPROPRIATE. CO-SIGNED FELIPA LUBINT
--- NOTE | 2016-08-10 11:22 | PN- General Surgery ---
Surgical Brief Attending Note Brief Attending Note: Attempted to see patient today. She was not in the room. Unfortunately I cannot move the operation up to tomorrow. It will need to continue for this Monday.
--- NOTE | 2016-08-10 15:16 | NUR ---
PHYSICAL THERAPY. PT REFUSED PHYSICAL THERAPY DUE TO EMOTIONAL STRESS AND ANXIETY POST RADIATION. PER NURSE Pt HAS BEEN GETTING UP WITH THE NURSES TO USE THE BATHROOM. PT WILL FOLLOW UP APPROPRIATE.
[2016-08-10 16:57] VITALS: BP 94/54
[2016-08-10 23:30] VITALS: BP 112/62
--- NOTE | 2016-08-11 07:15 | PN- Housestaff ---
BLAYNE LEON,[facility] 08/11/16 0715: Subjective Follow-up For: Pulmonary embolism chronic Lung cancer with metastasis Tele-Events Since Last Visit: Sinus rhythm/sinus tachycardia Heart rate 89-102 No overnight events Subjective: Patient was seen and examined this morning, no overnight events reported by the patient or the nurses. Patient feels much better today in terms of anxiety and shortness of breath, no acute distress was noted, vital signs are stable. Patient continued to be on 2 L with saturation 95%, continued to have dry cough but improved in frequency. Patient went to radiotherapy yesterday at 11 AM and scheduled for today at 11 AM as well. She denied any abdominal pain, nausea or vomiting. Had one bowel movement yesterday. Review of Systems Constitutional: Denies: chills, fever. EENTM: Denies: blurred vision, nasal congestion. Cardiovascular: Denies: chest pain, palpitations. Respiratory: Reports: cough, short of breath. Denies: sputum production, wheezing. Gastrointestinal: Denies: abdominal pain, constipation, diarrhea. Genitourinary: Denies: dysuria, hematuria. Objective Last 24 Hrs of Vital Signs/I&O Vital Signs Date Time Temp Pulse Resp B/P Pulse O2 O2 Flow FiO2 Ox Delivery Rate 08/11 0855 118/70 08/11 0854 118/70 08/11 0800 95 Nasal 2.0L Cannula 08/11 799 98.5 109 20 110/68 91 Nasal 2.0L Cannula 08/11 0000 Nasal 2.0L Cannula 08/10 2330 98.2 96 22 112/62 93 08/10 1657 96.9 80 20 94/54 94 Nasal Cannula 08/10 1600 Nasal 2.0L Cannula Intake & Output 08/11 1600 08/11 0800 08/11 0000 Intake Total 120 480 Output Total 1 Balance 120 479 Intake, Oral 120 480 Output, Other 1 Physical Exam General Appearance: Alert, Oriented X3, Cooperative, No Acute Distress Skin: No Rashes, No Breakdown, No Significant Lesion HEENT: Atraumatic, PERRLA, EOMI, DRY MUCOUS MEMBRANE Neck: Supple Cardiovascular: Regular Rate, Normal S1, Normal S2, No Murmurs Lungs: Clear to Auscultation, RIGHT BASAL FINE CRACKLE Abdomen: Normal Bowel Sounds, Soft, No Tenderness Neurological: Normal Speech, Strength at 5/5 X4 Ext, Normal Tone, Sensation Intact, Cranial Nerves 3-12 NL, Reflexes 2+ Extremities: No Clubbing, No Cyanosis, No Edema Assessment/Plan Assessment: 71 y/o F with PMHx of metastatic lung cancer, takotsubo cardiomyopathy with LVEF of 25% c/b 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 #PE: CTA of Chest with small right posterior subsegmental PE of indeterminate chronicity. Unclear if this is the underlying etiology for her dyspnea which could also be due to progression of her metastatic lung cancer. Patient had been taking Lovenox since the beginning of July 2016, thus Dr. Gastelum felt that it is difficult to classify this as a LMWH failure. * Hem/onc following. Appreciate their recs. * Continue Lovenox 50 mg/kg SQ BID. * Albuterol inhaler with spacer for wheezing was ordered * Patient is refusing nebolizers * on 2L oxygen with saturation above 92 % #Anexiety * Change Xanaxa 0.25 mg to Q6 PRN #Metastatic lung cancer: CXR with persistent left lung volume loss secondary to lymphadenopathy and associated narrowing of the left mainstem bronchus. CTA with increasing right lower lobe pulmonary nodule and left-sided mediastinal and hilar adenopathy. Left upper lobe obstruction with left upper lobe atelectasis * Dr. Robins is following, appreciate his recommendation * Patient is scheduled for port cath placement tomorrow morning, arrangement was made to have radiotherapy before port placement. * Patient is continuing to have radiotherapy, scheduled for today at 11 AM * Pulmonology consulted. pulmonology recommendation are appreciated, recommendation to start prednisone 20 mg for five days if wheezing and dyspnea presist * Encourage incentive spirometry. * Wean down oxygen as tolerated. #Takotsubo cardiomyopathy: * Hold off on repeating ECHO as patient had repeat ECHO at [place] 2 weeks ago. * Continue Toprol XL 50 mg PO QD and losartan 12.5 mg PO QD. #Chronic pain: Secondary to metastatic lung cancer. * Morphine 15 mg PO Q4H pRN. * Scheduled Miralax and PRN Senna and Dulcolax to prevent opioid-induced constipation. Diet: Heart Healthy DVT PPx: Lovenox and ALPs CODE: FULL Problem List: 1. Takotsubo cardiomyopathy 2. Metastatic lung cancer (metastasis from lung to other site) 3. Aortic aneurysm 4. Pulmonary embolus 5. Cerebral venous thrombosis of sigmoid sinus Pain Ratin Pain Location: n/a Pain Goal: Remain pain free Pain Plan: Morphine 15 mg PO Q4H PRN Tomorrow's Labs & Rationales: CMP, CBC SHERRIE LEON,MAKENZIE 08/11/16 1721: Attending MD Review Statement Attending Statement Attending MD Statement: examined this patient, discuss w/resident/PA/MACHINE WELT BUTTER, agreed w/resident/PA/MACHINE WELT BUTTER, discussed with family, reviewed EMR data (avail), discussed with nursing, discussed with case mgmt, amended to note Attending Assessment/Plan: The patient was seen and agree with the plan of care as outlined. To have port placed tomorrow.
--- NOTE | 2016-08-11 07:17 | PN- Oncology ---
Subjective Subjective: Feeling slightly better with less shortness of breath Review of Systems: 12 point review of systems otherwise unchanged Objective Vital Signs and I&Os Vital Signs Date Time Temp Pulse Resp B/P Pulse O2 O2 Flow FiO2 Ox Delivery Rate 08/11 0000 Nasal 2.0L Cannula 08/10 2330 98.2 96 22 112/62 93 08/10 1657 96.9 80 20 94/54 94 Nasal Cannula 08/10 1600 Nasal 2.0L Cannula 08/10 1015 116 120/80 08/10 1015 116 120/80 08/10 0823 97.8 116 20 120/80 93 Nasal 2.0L Cannula 08/10 0800 92 Nasal 2.0L Cannula Intake & Output 08/11 0808/11 0000 08/10 1600 08/10 0808/10 0000 08/09 1600 Intake Total 480 480 100 200 400 Output Total 1 Balance 479 480 100 200 400 Intake, IV 0 0 Intake, Oral 480 480 100 200 400 Number 0 0 0 Bowel Movements Output, Other 1 Patient 115 lb Weight Gen.: in NAD ENT: Sclera anicteric Chest: Normal respiratory effort, decreased breath sounds Cor: RRR, no extra sounds Abdomen: Soft, bowel sounds present, no tenderness, no rebound Extremities: Without clubbing, cyanosis, or asymmetric edema Neurology: Alert and oriented 3, Current Medications: Current Medications Sig/Georgi Start time Last Medication Dose Route Stop Time Status Admin Acetaminophen 650 MG Q4P PRN 08/10 0115 AC 08/10 PO 1303 Albuterol Sulfate 2 PUF EVERY 4 HRS/AWAKE 08/09 1400 AC 08/10 INH 2039 Albuterol Sulfate 3 ML Q4P PRN 08/08 1400 AC INH Alprazolam 0.25 MG Q6-PRN PRN 08/10 1530 AC 08/10 PO 08/17 1529 2044 Alprazolam 0.25 MG TID PRN 08/09 1130 DC 08/10 PO 08/16 1129 1420 Aspirin Buffered 81 MG DAILY 08/08 1000 AC 08/10 PO 1014 Atorvastatin Calcium 80 MG DAILY 08/07 1840 AC 08/10 PO 1014 Bisacodyl 5 MG DAILY NEEDED PRN 08/08 1200 AC PO Enoxaparin Sodium 50 MG BID 08/08 1240 AC 08/10 SC 2038 Furosemide 60 MG DAILY 08/08 1000 AC 08/10 PO 1014 Guaifenesin 10 ML .STK-MED ONE 08/10 0823 DC PO 08/10 0824 Guaifenesin/ 10 ML Q6P PRN 08/09 2014 AC 08/10 Dextromethorphan PO 0829 Losartan Potassium 12.5 MG DAILY 08/07 184 AC 08/10 PO 1015 Metoprolol Succinate 50 MG DAILY 08/07 1842 AC 08/10 PO 1015 Morphine Sulfate 15 MG Q4P PRN 08/07 184 AC 08/10 PO 2350 Omeprazole 40 MG DAILY AC 08/07 1843 AC 08/11 PO 0654 Polyethylene Glycol 17 GM DAILY 08/11 1000 AC PO Polyethylene Glycol 17 GM DAILY 08/07 1850 AC 08/09 PO 0928 Senna/Docusate Sodium 1 TAB BID PRN 08/08 1246 AC 08/10 PO 1303 Results Last 24 Hours of Lab Results: Recent lab unremarkable Assessment/Plan Assessment/Recommendations: Advanced lung cancer-clinically stable Plan- Port-A-Cath to be placed tomorrow As I have indicated in prior correspondence, patient and I have had lengthy discussions regarding overall prognosis and goals of therapy. We'll proceed with single agent gemcitabine once discharged
[2016-08-11 08:00] VITALS: BP 110/68
[2016-08-11 08:58] LABS: ABSOLUTE BASOPHIL COUNT 0.1 /CUMM (0.0-0.2); ABSOLUTE EOSINOPHIL COUNT 0.1 /CUMM (0.0-0.7); ABSOLUTE GRANULOCYTE CT 9.7 /CUMM (1.4-6.5); ABSOLUTE LYMPH COUNT 0.8 /CUMM (1.2-3.4); ABSOLUTE MONOCYTE COUNT 0.9 /CUMM (0.10-0.60); BASOPHIL % 0.4 % (0.0-2.0); EOSINOPHIL % 1.3 % (0-5); MEAN CORPUSCULAR HGB CONC 33.8 G/DL (33.0-37.0); MEAN CORPUSCULAR VOLUME 91.8 FL (81.0-99.0); MEAN PLATELET VOLUME 7.9 FL (7.4-10.4); PLATELET COUNT 542 /CUMM (130-400); RBC DISTRIBUTION WIDTH 16.2 % (11.5-14.5); RED BLOOD CELL CT 3.38 /CUMM (4.20-5.40); WHITE BLOOD CELL COUNT 11.6 /CUMM (4.8-10.8)
[2016-08-11 09:37] LABS: GRANULOCYTE % 83.5 % (42.2-75.2)
--- NOTE | 2016-08-11 11:25 | PN- Pulmonary ---
Subjective HPI/Critical Care Issues: Patient was seen and examined this morning and pt onroute to the xrt, no overnight events reported by the patient or the nurses. Patient feels much better today in terms of anxiety and shortness of breath, no acute distress was noted, vital signs are stable. Patient continued to be on 2 L with saturation 95%, continued to have dry cough but improved in frequency. Patient went to radiotherapy yesterday at 11 AM and scheduled for today at 11 AM as well. She denied any abdominal pain, nausea or vomiting. Had one bowel movement yesterday. Review of Systems Constitutional: Denies: chills, fever. EENTM: Denies: blurred vision, nasal congestion. Cardiovascular: Denies: chest pain, palpitations. Respiratory: Reports: cough, short of breath. Denies: sputum production, wheezing. Gastrointestinal: Denies: abdominal pain, constipation, diarrhea. Genitourinary: Denies: dysuria, hematuria. Objective Current Medications: Current Medications Sig/Georgi Start time Last Medication Dose Route Stop Time Status Admin Acetaminophen 650 MG Q4P PRN 08/10 0115 AC 08/10 PO 1303 Albuterol Sulfate 2 PUF EVERY 4 HRS/AWAKE 08/09 1400 AC 08/11 INH 0855 Albuterol Sulfate 3 ML Q4P PRN 08/08 1400 AC INH Alprazolam 0.25 MG Q6-PRN PRN 08/10 1530 AC 08/10 PO 08/17 1529 2044 Alprazolam 0.25 MG TID PRN 08/09 1130 DC 08/10 PO 08/16 1129 1420 Aspirin Buffered 81 MG DAILY 08/08 1000 AC 08/10 PO 1014 Atorvastatin Calcium 80 MG DAILY 08/07 1840 AC 08/11 PO 0855 Bisacodyl 5 MG DAILY NEEDED PRN 08/08 1200 AC PO Enoxaparin Sodium 50 MG BID 08/08 1240 AC 08/10 SC 2038 Furosemide 60 MG DAILY 08/08 1000 AC 08/11 PO 0854 Guaifenesin/ 10 ML Q6P PRN 08/09 2015 AC 08/10 Dextromethorphan PO 0829 Losartan Potassium 12.5 MG DAILY 08/07 1840 AC 08/11 PO 0855 Metoprolol Succinate 50 MG DAILY 08/07 1842 AC 08/11 PO 0854 Morphine Sulfate 15 MG Q4P PRN 08/07 1845 AC 08/10 PO 2350 Omeprazole 40 MG DAILY AC 08/07 1843 AC 08/11 PO 0654 Polyethylene Glycol 17 GM DAILY 08/11 1000 AC PO Polyethylene Glycol 17 GM DAILY 08/07 1850 DC 08/11 PO 0856 Senna/Docusate Sodium 1 TAB BID PRN 08/08 1246 AC 08/10 PO 1303 Vital Signs & I&O Last 24 Hrs of Vitals and I&O: Vital Signs Date Time Temp Pulse Resp B/P Pulse O2 O2 Flow FiO2 Ox Delivery Rate 08/11 0855 118/70 08/11 0854 118/70 08/11 0800 95 Nasal 2.0L Cannula 08/11 08 98.5 109 20 110/68 91 Nasal 2.0L Cannula 08/11 0000 Nasal 2.0L Cannula 08/10 2330 98.2 96 22 112/62 93 08/10 1657 96.9 80 20 94/54 94 Nasal Cannula 08/10 1600 Nasal 2.0L Cannula Intake & Output 08/11 1600 08/11 0800 08/11 0000 Intake Total 120 480 Output Total 1 Balance 120 479 Intake, Oral 120 480 Output, Other 1 Impression/Plan Impression/Plan Impression/Plan: Physical Exam General Appearance Alert, Oriented X3, Cooperative, Mild Distress Skin No Rashes HEENT Atraumatic, PERRLA, EOMI, Mucous Membr. moist/pink Neck Supple Cardiovascular Regular Rate, Normal S1, Normal S2, No Murmurs Lungs Normal Air Movement, occasional wheezing on lung exam Abdomen Normal Bowel Sounds, Soft, No Tenderness Neurological Normal Speech, Strength at 5/5 X4 Ext, Normal Tone, Sensation Intact, Cranial Nerves 3-12 NL Extremities No Edema, Normal Pulses Vascular Normal Pulses, Pulses Symmetrical SIGNIFICANT DATA CT scan of the chest reviewed which showed stable dilatation of the thoracic aorta? 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 IMPRESSION This is an unfortunate 71-year-old lady who was seen by me before in the emergency room in the early part of June subsequently followed at [facility] with metastatic adenocarcinoma of the lung. Unfortunately she has multiple metastasis in multiple lymph nodes in the abdomen and the chest, endobronchial lesion in the left side with near obstruction of the left upper lobe and lingula, multiple bone metastases, multiple brain metastasis with status post gamma knife therapy, significant cardiomyopathy, suspected to be stress induced with intracardiac thrombus with multiple strokes, recent sigmoid sinus thrombosis for which she is on anticoagulation now here with * Shortness of breath which is slowly worsening related to progressive lung cancer with significant metastasis in the mediastinum and in the left hilum with endobronchial lesion in the left side with left upper lobe and lingula atelectasis with probable mild lymphangitic involvement in the left side. She also has a small pulmonary embolism which is contributing to her shortness of breath, Does have copd aswell with mild wheezing in the right side. * Significant pain in the scapular area for which she is undergoing radiation, multiple bony metastases which has increased in size since June in a patient with worsening adenocarcinoma * Status post gamma knife radiation to the brain with subsequent sigmoid sinus thrombosis for which she is on Lovenox * No clinical evidence of far suggestive of acute bacterial pneumonitis * Cardiomyopathy with low ejection fraction with previous intracardiac thrombus on anticoagulation * Severe peripheral vascular disease with aortic aneurysm * Worsening nausea with intra-abdominal metastases with ap hepatis lymphadenopathy noted in the previous CT RECOMMENDATION * Continue current therapy nebulizer as needed * Continue Lasix watch her creatinine * Aggressive bowel regimen * If wheezing and dyspnea worsens 20 mg po prednisone for five days can be tried * Lovenox 50 mg twice a day * Patient is undergoing ongoing radiation we'll discuss with radiation oncology to see whether she would be a candidate for radiation to the left hilum and left mediastinum. * Please call general surgery Dr. Kunz to see the patient so that she could get a port put in for her chemotherapy Prognosis appears very poor long-run. Discussed with in detail yesterday
[2016-08-11 15:30] VITALS: BP 118/64
--- NOTE | 2016-08-11 17:48 | PN- Cardiology ---
Subjective Subjective: The patient is seen after her return from radiation therapy. She complains of fatigue. Shortness of breath is somewhat better. No chest pain. No palpitations. No diaphoresis. Objective Vital Signs and I&Os Vital Signs Date Time Temp Pulse Resp B/P Pulse O2 O2 Flow FiO2 Ox Delivery Rate 08/11 1530 97.4 95 20 118/64 95 Nasal 2.0L Cannula 08/11 0855 118/70 08/11 0854 118/70 08/11 0800 95 Nasal 2.0L Cannula 08/11 08 98.5 109 20 110/68 91 Nasal 2.0L Cannula 08/11 0000 Nasal 2.0L Cannula 08/10 2330 98.2 96 22 112/62 93 Intake & Output 08/11 1600 08/11 0808/11 0000 08/10 1600 08/10 0800 08/10 0000 Intake Total 720 120 480 480 100 200 Output Total 1 Balance 720 120 479 480 100 200 Intake, IV 0 0 Intake, Oral 720 120 480 480 100 200 Number 0 0 Bowel Movements Output, Other 1 Physical Exam: Gen: NAD HEENT: normal Lungs: Scattered wheezes, normal resp. effort Heart: RRR, S1, S2, no murmurs Abdomen: Soft, nontender, no masses Extremities: No clubbing, cyanosis, or edema. Neuro: Alert and oriented x 3, cranial nerves intact Current Medications: Current Medications Sig/Georgi Start time Last Medication Dose Route Stop Time Status Admin Acetaminophen 650 MG Q4P PRN 08/10 0115 AC 08/11 PO 1232 Albuterol Sulfate 2 PUF EVERY 4 HRS/AWAKE 08/09 1400 AC 08/11 INH 0855 Albuterol Sulfate 3 ML Q4P PRN 08/08 1400 DC INH Alprazolam 0.25 MG Q6-PRN PRN 08/10 1530 AC 08/10 PO 08/17 1529 2044 Aspirin Buffered 81 MG DAILY 08/08 1000 AC 08/10 PO 1014 Atorvastatin Calcium 80 MG DAILY 08/07 1840 AC 08/11 PO 0855 Bisacodyl 5 MG DAILY NEEDED PRN 08/08 1200 AC PO Enoxaparin Sodium 50 MG BID 08/08 1240 DC 08/10 SC 2038 Furosemide 60 MG DAILY 08/08 1000 AC 08/11 PO 0854 Guaifenesin/ 10 ML Q6P PRN 08/09 2014 AC 08/10 Dextromethorphan PO 0829 Losartan Potassium 12.5 MG DAILY 08/07 184 AC 08/11 PO 0855 Metoprolol Succinate 50 MG DAILY 08/07 184 AC 08/11 PO 0854 Morphine Sulfate 15 MG Q4P PRN 08/07 184 AC 08/10 PO 2350 Omeprazole 40 MG DAILY AC 08/07 184 AC 08/11 PO 0654 Patient Medication 1 ED .STK-MED ONE 08/11 1300 DC Teaching ED 08/11 1301 Polyethylene Glycol 17 GM DAILY 08/11 1000 AC PO Polyethylene Glycol 17 GM DAILY 08/07 1850 DC 08/11 PO 0856 Senna/Docusate Sodium 1 TAB BID PRN 08/08 1246 AC 08/10 PO 1303 Results Last 48 Hrs of Labs/Mics: Laboratory Tests 08/11/16 0745: Anion Gap 13, Estimated GFR > 60, BUN/Creatinine Ratio 16.3, CBC w Diff NO MAN DIFF REQ, RBC 3.38 L, MCV 91.8, MCH 31.0, RDW 16.2 H, MPV 7.9, Gran % 83.5 H, Lymphocytes % 7.1 L, Monocytes % 7.7, Eosinophils % 1.3, Basophils % 0.4, Absolute Granulocytes 9.7 H, Absolute Lymphocytes 0.8 L, Absolute Monocytes 0.9 H, Absolute Eosinophils 0.1, Absolute Basophils 0.1, PUBS MCHC 33.8 08/10/16 0610: Anion Gap 11, Estimated GFR > 60, BUN/Creatinine Ratio 17.5, Total Bilirubin 0.3 , Direct Bilirubin 0.3, AST 21, ALT 30, Alkaline Phosphatase 164 H, Total Protein 5.3 L, Albumin 2.8 L, CBC w Diff NO MAN DIFF REQ, RBC 3.25 L, MCV 92.6, MCH 31.5 H, RDW 16.6 H, MPV 7.8, Gran % 80.2 H, Lymphocytes % 9.9 L, Monocytes % 8.2, Eosinophils % 1.3, Basophils % 0.4, Absolute Granulocytes 7.1 H, Absolute Lymphocytes 0.9 L, Absolute Monocytes 0.7 H, Absolute Eosinophils 0.1, Absolute Basophils 0, PUBS MCHC 34.0 Assessment/Plan Assessment/Plan Assessment: 1. Stage IV metastatic lung cancer 2. Pulmonary embolism 3. Recent takotsubo cardiomyopathy with subsequent recovery of LVEF 4. Left ventricular thrombus Plan: * Continue Lovenox at therapeutic dose * Continue losartan and metoprolol * The patient is undergoing port placement tomorrow. * Follow up one month after discharge Continue telemetry? Yes
[2016-08-11 22:00] VITALS: BP 110/72
[2016-08-12 07:00] VITALS: BP 118/72
--- NOTE | 2016-08-12 07:26 | PN- Oncology ---
Subjective Subjective: Resting comfortably with occasional paroxysms of cough Review of Systems: 12 point review of systems unchanged Objective Vital Signs and I&Os Vital Signs Date Time Temp Pulse Resp B/P Pulse O2 O2 Flow FiO2 Ox Delivery Rate 08/11 1530 97.4 95 20 118/64 95 Nasal 2.0L Cannula 08/11 0855 118/70 08/11 0854 118/70 08/11 0800 95 Nasal 2.0L Cannula 08/11 0800 98.5 109 20 110/68 91 Nasal 2.0L Cannula Intake & Output 08/12 0808/12 0000 08/11 1600 08/11 0800 08/11 0000 08/10 1600 Intake Total 720 120 480 480 Output Total 1 Balance 720 120 479 480 Intake, Oral 720 120 480 480 Output, Other 1 Gen.: in NAD ENT: Sclera anicteric Chest: Normal respiratory effort, decreased breath sounds Cor: RRR, no extra sounds Abdomen: Soft, bowel sounds present, no tenderness, no rebound Extremities: Without clubbing, cyanosis, or asymmetric edema Neurology: Alert and oriented 3, Current Medications: Current Medications Sig/Georgi Start time Last Medication Dose Route Stop Time Status Admin Acetaminophen 650 MG .STK-MED ONE 08/11 191 DC PO 08/11 191 Acetaminophen 650 MG .STK-MED ONE 08/11 1229 DC PO 08/11 1230 Acetaminophen 650 MG Q4P PRN 08/10 0115 AC 08/11 PO 1914 Albuterol Sulfate 2 PUF EVERY 4 HRS/AWAKE 08/09 1400 AC 08/11 INH 2223 Albuterol Sulfate 3 ML Q4P PRN 08/08 1400 DC INH Alprazolam 0.25 MG Q6-PRN PRN 08/10 1530 AC 08/11 PO 08/17 1529 2220 Aspirin Buffered 81 MG DAILY 08/08 1000 AC 08/10 PO 1014 Atorvastatin Calcium 80 MG DAILY 08/07 1840 AC 08/11 PO 0855 Bisacodyl 5 MG DAILY NEEDED PRN 08/08 1200 AC PO Enoxaparin Sodium 50 MG BID 08/08 1240 DC 04 SC 2038 Furosemide 60 MG DAILY 08/08 1000 AC 08/11 PO 0854 Guaifenesin 10 ML .STK-MED ONE 08/11 2225 DC PO 08/11 2226 Guaifenesin/ 10 ML Q6P PRN 08/09 2014 AC 08/12 Dextromethorphan PO 0524 Losartan Potassium 12.5 MG DAILY 08/07 184 AC 08/11 PO 0855 Metoprolol Succinate 50 MG DAILY 08/07 184 AC 08/11 PO 0854 Morphine Sulfate 15 MG Q4P PRN 08/07 184 AC 08/10 PO 2350 Omeprazole 40 MG DAILY AC 08/07 184 AC 08/11 PO 0654 Patient Medication 1 ED .STK-MED ONE 08/11 1300 DC Teaching ED 08/11 1301 Polyethylene Glycol 17 GM DAILY 08/11 1000 AC PO Polyethylene Glycol 17 GM DAILY 08/07 1850 DC 08/11 PO 0856 Senna/Docusate Sodium 1 TAB BID PRN 08/08 1246 AC 08/10 PO 1303 Results Last 24 Hours of Lab Results: Laboratory Tests 08/12 08/11 0605 0745 Chemistry Sodium (137 - 145 mmol/L) Pending 130 L Potassium (3.5 - 5.1 mmol/L) Pending 3.9 Chloride (98 - 107 mmol/L) Pending 91 L Carbon Dioxide (22 - 30 mmol/L) Pending 27 Anion Gap (5 - 16) Pending 13 BUN (7 - 17 mg/dL) Pending 13 Creatinine (0.5 - 1.0 mg/dL) Pending 0.8 Estimated GFR (>60 ml/min) > 60 BUN/Creatinine Ratio (7 - 25 %) Pending 16.3 Total Bilirubin Pending Direct Bilirubin Pending AST Pending ALT Pending Alkaline Phosphatase Pending Total Protein Pending Albumin Pending Hematology CBC w Diff Pending NO MAN DIFF REQ WBC (4.8 - 10.8 /CUMM) Pending 11.6 H RBC (4.20 - 5.40 /CUMM) Pending 3.38 L Hgb (12.0 - 16.0 G/DL) Pending 10.5 L Hct (37 - 47 %) Pending 31.0 L MCV (81.0 - 99.0 FL) Pending 91.8 MCH (27.0 - 31.0 PG) Pending 31.0 RDW (11.5 - 14.5 %) Pending 16.2 H Plt Count (130 - 400 /CUMM) Pending 542 H MPV (7.4 - 10.4 FL) Pending 7.9 Gran % (42.2 - 75.2 %) 83.5 H Lymphocytes % (20.5 - 51.1 %) 7.1 L Monocytes % (1.7 - 9.3 %) 7.7 Eosinophils % (0 - 5 %) 1.3 Basophils % (0.0 - 2.0 %) 0.4 Absolute Granulocytes (1.4 - 6.5 /CUMM) 9.7 H Absolute Lymphocytes (1.2 - 3.4 /CUMM) 0.8 L Absolute Monocytes (0.10 - 0.60 /CUMM) 0.9 H Absolute Eosinophils (0.0 - 0.7 /CUMM) 0.1 Absolute Basophils (0.0 - 0.2 /CUMM) 0.1 PUBS MCHC (33.0 - 37.0 G/DL) Pending 33.8 Assessment/Plan Assessment/Recommendations: 1. Lung cancer-chemotherapy as an outpatient 2. Access-port to be placed today 3. PE-Lovenox
[2016-08-12 07:51] LABS: ABSOLUTE BASOPHIL COUNT 0 /CUMM (0.0-0.2); ABSOLUTE EOSINOPHIL COUNT 0.1 /CUMM (0.0-0.7); ABSOLUTE LYMPH COUNT 0.6 /CUMM (1.2-3.4); ABSOLUTE MONOCYTE COUNT 0.7 /CUMM (0.10-0.60); BASOPHIL % 0.2 % (0.0-2.0); HEMATOCRIT 29.8 % (37-47); MEAN CORPUSCULAR HGB 31.4 PG (27.0-31.0); MEAN CORPUSCULAR HGB CONC 33.8 G/DL (33.0-37.0); MEAN CORPUSCULAR VOLUME 92.7 FL (81.0-99.0); MEAN PLATELET VOLUME 7.7 FL (7.4-10.4); PLATELET COUNT 424 /CUMM (130-400); RBC DISTRIBUTION WIDTH 16.6 % (11.5-14.5); RED BLOOD CELL CT 3.22 /CUMM (4.20-5.40)
--- NOTE | 2016-08-12 08:42 | Patient Discharge Instructions ---
Discharge Instructions General Discharge Information Special Instructions: Please follow-up with your PCP after discharge Please follow-up with Dr. Curry heme oncology after discharge Please follow-up with Dr. Cordova pulmonology after discharge please follow up with cardiology Dr. burns one month after discharge Acute Coronary Syndrome Inclusion Criteria At DC or during hospital stay patient has or had the following: ACS DIAGNOSIS No Discharge Core Measures Meds if any: Prescribed or Continued at Discharge Meds if any: NOT Prescribed or Continued at Discharge Congestive Heart Failure Inclusion Criteria At DC or during hospital stay patient has or had the following: CHF DIAGNOSIS No Discharge Core Measures Meds if any: Prescribed or Continued at Discharge Meds if any: NOT Prescribed or Continued at Discharge Cerebrovascular accident Inclusion Criteria At DC or during hospital stay patient has or had the following: CVA/TIA Diagnosis No Discharge Core Measures Meds if any: Prescribed or Continued at Discharge Meds if any: NOT Prescribed or Continued at Discharge Venous thromboembolism Inclusion Criteria VTE Diagnosis Yes VTE Type Pulmonary Embolism VTE Confirmed by (Test) CT CHEST ANGIOGRAM Discharge Core Measures - Per Current guidelines, there needs to be overlap - treatment for the first 5 days of Warfarin therapy. - If discharged on Warfarin prior to 5 days of - overlap therapy, the patient will need to be - assessed for post discharge needs including - *Post discharge parental anticoagulation - *Warfarin and/or parental anticoagulation education - *Follow up date to check INR post discharge At least 5 days overlap therapy as Inpatient No Meds if any: Prescribed or Continued at Discharge Note: Overlap Therapy is Warfarin and Anticoagulant Meds if any: NOT Prescribed or Continued at Discharge
--- NOTE | 2016-08-12 08:46 | PN- Housestaff ---
BLAYNE LEON,[facility] 08/12/16 0842: Subjective Follow-up For: Pulmonary embolism chronic Lung cancer with metastasis Tele-Events Since Last Visit: Sinus rhythm/sinus tachycardia Heartrate 85-108 Overnight events Subjective: patient seen and examined this morning, no over night events. she is NPO, scheduled for radiotherapy at 8.30 am this morning and port palcement at 10.30. Laying comforatbly in bed, improved anxeity, had cough spell this morning. chect examination is improved. Review of Systems Constitutional: Denies: no symptoms. Objective Last 24 Hrs of Vital Signs/I&O Vital Signs Date Time Temp Pulse Resp B/P Pulse O2 O2 Flow FiO2 Ox Delivery Rate 08/12 1633 93 116/60 08/12 1616 98.7 92 18 114/68 96 Nasal 2.0L Cannula 08/12 0824 118 118/72 08/12 0800 96 Nasal 2.0L Cannula 08/12 0700 98.5 118 18 118/72 95 /05 2200 97.0 110 20 110/72 95 Nasal 2.0L Cannula Physical Exam General Appearance: Alert, Oriented X3, Cooperative, No Acute Distress Cardiovascular: Regular Rate, Normal S1, Normal S2, No Murmurs Lungs: Clear to Auscultation, Normal Air Movement Abdomen: Normal Bowel Sounds, Soft, No Tenderness Neurological: Normal Gait, Normal Speech, Strength at 5/5 X4 Ext, Normal Tone, Sensation Intact, Cranial Nerves 3-12 NL, Reflexes 2+ Extremities: No Clubbing, No Cyanosis, No Edema Vascular: Normal Pulses Assessment/Plan Assessment: 71 y/o F with PMHx of metastatic lung cancer, takotsubo cardiomyopathy with LVEF of 25% c/b 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 #PE: CTA of Chest with small right posterior subsegmental PE of indeterminate chronicity. Unclear if this is the underlying etiology for her dyspnea which could also be due to progression of her metastatic lung cancer. Patient had been taking Lovenox since the beginning of July 2016, thus Dr. Gastelum felt that it is difficult to classify this as a LMWH failure. * Hem/onc following. Appreciate their recs. * Continue Lovenox 50 mg/kg SQ BID. * Albuterol inhaler with spacer for wheezing was ordered * Patient is refusing nebolizers * on 2L oxygen with saturation above 92 % #Anexiety * Contin. Xanaxa 0.25 mg to Q6 PRN #Metastatic lung cancer: CXR with persistent left lung volume loss secondary to lymphadenopathy and associated narrowing of the left mainstem bronchus. CTA with increasing right lower lobe pulmonary nodule and left-sided mediastinal and hilar adenopathy. Left upper lobe obstruction with left upper lobe atelectasis * Dr. Robins is following, appreciate his recommendation * Patient is scheduled for port cath placement this morning, arrangement was made to have radiotherapy to right shoulder before port placement. will restart lovonex tomorrow * Pulmonology consulted. pulmonology recommendation are appreciated, recommendation to start prednisone 20 mg for five days if wheezing and dyspnea presist * Encourage incentive spirometry. * Wean down oxygen as tolerated. #Takotsubo cardiomyopathy: * Hold off on repeating ECHO as patient had repeat ECHO at [place] 2 weeks ago. * Continue Toprol XL 50 mg PO QD and losartan 12.5 mg PO QD. #Chronic pain: Secondary to metastatic lung cancer. * Morphine 15 mg PO Q4H pRN. * Scheduled Miralax and PRN Senna and Dulcolax to prevent opioid-induced constipation. Diet: Heart Healthy DVT PPx: Lovenox and ALPs CODE: FULL Problem List: 1. Takotsubo cardiomyopathy 2. Metastatic lung cancer (metastasis from lung to other site) 3. Aortic aneurysm 4. Pulmonary embolus 5. Cerebral venous thrombosis of sigmoid sinus Pain Ratin Pain Location: N/A Pain Goal: Remain pain free Pain Plan: Morphine 15 mg PO Q4H PRN Tomorrow's Labs & Rationales: cbc, cmp MAKENZIE BALDERAS MD 08/12/16 1729: Attending MD Review Statement Attending Statement Attending MD Statement: examined this patient, discuss w/resident/PA/INSPECTOR EYEGLASS, agreed w/resident/PA/INSPECTOR EYEGLASS, discussed with family, reviewed EMR data (avail), discussed with nursing, discussed with case mgmt, amended to note Attending Assessment/Plan: The patient was seen and discussed with house staff. Agree with plan of care as outlined. Port-A-Cath placed today. Tentative discharge to home tomorrow. OP XRT next week along with Gemzar chemo per oncology.
[2016-08-12 09:14] LABS: WHITE BLOOD CELL COUNT 11.3 /CUMM (4.8-10.8)
--- NOTE | 2016-08-12 10:03 | NUR ---
PHYSICAL THERAPY. Pt refused PT at this time & will be off floor for most of the day due to schedule radiation and port insertion. PT will follow up as appropriate. CO-SIGNED FELIPA LUBINT
--- NOTE | 2016-08-12 11:19 | NUR ---
PATIENT'S O2 SATS WERE TAKEN BY THIS RN @ 1105. AT REST O2 SAT WAS 96-100% ON 1.5L O2NC. O2 SAT WAS 90-94% AT REST ON RA. AFTER AMBULATION O2 SAT WAS 85-88% ON RA.
--- NOTE | 2016-08-12 13:50 | Operative Report ---
See Addendum Operative/Inv Procedure Report Surgery Date: 08/12/16 Name of Procedure: Right internal jugular Port-A-Cath placement with fluoroscopic and ultrasound guidance Pre-Operative Diagnosis: Lung cancer Post-Operative Diagnosis: Same Estimated Blood Loss: scant Surgeon/Civil Estimator: Omkar Kunz M.D. Anesthesia: local monitored anesthesi Implants: Power Port Operative/Procedure Note Note: After consent she is brought to the operative laid supine. Sedation was obtained and her right chest and neck were prepped and draped. Skin below the clavicle was after local anesthesia. Subclavian vein was attempted to be accessed. I could not. We then turned attention to the internal jugular vein which was accessed with ultrasound guidance. The wire was placed around to the right atrium under fluoroscopic imaging. A pocket is then created and the chest wall after anesthetizing the tissues with local anesthesia. An incision was made and then the subcutaneous tissues dissected bluntly. Port was placed into the cavity and the catheter tunneled up to the neck incision. Within measured the catheter under fluoroscopy. It was trimmed to 26 cm. The dilator was placed over the wire and then the catheter placed into it. Peel-away catheter was removed. Fluoroscopic imaging showed catheter in adequate position in the atriocaval junction. The port was secured to the deep tissues with 0 Vicryl suture. The incisions then closed in layers of Vicryl. Steri-Strips and sterile dressing applied. Sponge counts are correct
--- NOTE | 2016-08-12 14:15 | RADIOLOGY REPORT ---
EXAMINATION: XR PORTABLE CHEST CLINICAL INFORMATION: Postoperative Port-A-Cath. COMPARISON: 08/08/2016 TECHNIQUE: Portable view of the chest was obtained. FINDINGS: A right chest wall CT compatible port terminates near the cavoatrial junction. Cardiac leads overlie the chest. The lungs are well expanded. Minimal retrocardiac opacity noted. No pleural effusion or pneumothorax. The cardiomediastinal silhouette is unchanged. No acute osseous abnormality. IMPRESSION: Right chest wall port terminating near the cavoatrial junction. Minimal retrocardiac atelectasis noted.
[2016-08-12] MEDS ORDERED: XANAX0.25 M1 PO (15:54)
[2016-08-12] MEDS ORDERED: MIRALAX119 GM PO (15:54)
[2016-08-12] MEDS ORDERED: LOVENOX100 MG/1 M SC (15:54)
[2016-08-12] MEDS ORDERED: LOVENOX60 MG/0.1 SC (15:58)
[2016-08-12 16:16] VITALS: BP 114/68
--- NOTE | 2016-08-12 17:22 | RADIOLOGY REPORT ---
EXAMINATION:\H\ \N\XR CHEST CLINICAL INFORMATION: Port-A-Cath insertion in OR. COMPARISON: Portable chest x-ray 08/08/2016. TECHNIQUE: 3 intraoperative images of the right medial chest were obtained. Imaging was provided for Dr. Kunz in the OR. FINDINGS: The images demonstrate placement of a right internal jugular central venous catheter. The tip appears at the level of the cavoatrial junction. IMPRESSION: 1. 3 intraoperative images during placement of a right internal jugular Port-A-Cath central venous catheter.
[2016-08-13 01:09] VITALS: BP 112/68
[2016-08-13 07:54] LABS: ABSOLUTE BASOPHIL COUNT 0 /CUMM (0.0-0.2); ABSOLUTE EOSINOPHIL COUNT 0.1 /CUMM (0.0-0.7); ABSOLUTE GRANULOCYTE CT 9.5 /CUMM (1.4-6.5); ABSOLUTE LYMPH COUNT 0.5 /CUMM (1.2-3.4); ABSOLUTE MONOCYTE COUNT 0.9 /CUMM (0.10-0.60); BASOPHIL % 0.1 % (0.0-2.0); EOSINOPHIL % 0.9 % (0-5); HEMATOCRIT 29.9 % (37-47); MEAN CORPUSCULAR HGB 31.2 PG (27.0-31.0); MEAN CORPUSCULAR HGB CONC 33.8 G/DL (33.0-37.0); MEAN CORPUSCULAR VOLUME 92.4 FL (81.0-99.0); MEAN PLATELET VOLUME 7.9 FL (7.4-10.4); PLATELET COUNT 419 /CUMM (130-400); RBC DISTRIBUTION WIDTH 16.4 % (11.5-14.5); RED BLOOD CELL CT 3.23 /CUMM (4.20-5.40); WHITE BLOOD CELL COUNT 11.1 /CUMM (4.8-10.8)
[2016-08-13 08:50] LABS: GRANULOCYTE % 85.7 % (42.2-75.2)
[2016-08-13 09:06] VITALS: BP 130/70
--- NOTE | 2016-08-13 12:01 | PN- General Surgery ---
Surgical Brief Attending Note Brief Attending Note: surgical site looks good. restart anticoagulation.
--- NOTE | 2016-08-13 13:02 | PN- Att Addend ---
Attending Addendum Attending Brief Note Patient seen and examined. Plan of care discussed with the medical team and the patient. Available lab work and radiology test reports were reviewed. Patient is eager to go home. She denies any new complaints this morning. Vital Signs Date Time Temp Pulse Resp B/P Pulse O2 O2 Flow FiO2 Ox Delivery Rate 08/13 905 97.9 102 20 130/70 93 08/13 0903 102 130/70 08/13 0903 102 130/70 08/13 08 Nasal 2.0L Cannula 08/13 0109 98.1 92 18 112/68 96 Nasal Cannula 08/13 0000 95 Nasal 2.0L Cannula 08/12 1633 93 116/60 08/12 1616 98.7 92 18 114/68 96 Nasal 2.0L Cannula 08/12 1600 97 Nasal 2.0L Cannula Intake & Output 08/13 1600 08/13 0000 Intake Total 200 420 Output Total Balance 200 420 Intake, IV 20 Intake, Oral 200 400 Number 0 Bowel Movements Exam: General: Patient awake alert oriented without any distress CVS: S1 plus S2 without any murmur or gallops Chest: Few scattered crepitation without any wheeze. There is no respiratory distress. Port-A-Cath site looks slightly red but no pus seen. Abdomen: Soft nontender, bowel sound present, no guarding or rebound EDUCATION DEPARTMENT REGISTRAR: Awake alert oriented without any focal neuro deficit and follows command appropriately Extremities: No edema; no clubbing or cyanosis noted Laboratory Tests 08/13 629 Chemistry Sodium (137 - 145 mmol/L) 136 L Potassium (3.5 - 5.1 mmol/L) 3.9 Chloride (98 - 107 mmol/L) 94 L Carbon Dioxide (22 - 30 mmol/L) 28 Anion Gap (5 - 16) 13 BUN (7 - 17 mg/dL) 12 Creatinine (0.5 - 1.0 mg/dL) 0.8 Estimated GFR (>60 ml/min) > 60 BUN/Creatinine Ratio (7 - 25 %) 15.0 Hematology CBC w Diff NO MAN DIFF REQ WBC (4.8 - 10.8 /CUMM) 11.1 H RBC (4.20 - 5.40 /CUMM) 3.23 L Hgb (12.0 - 16.0 G/DL) 10.1 L Hct (37 - 47 %) 29.9 L MCV (81.0 - 99.0 FL) 92.4 MCH (27.0 - 31.0 PG) 31.2 H RDW (11.5 - 14.5 %) 16.4 H Plt Count (130 - 400 /CUMM) 419 H MPV (7.4 - 10.4 FL) 7.9 Gran % (42.2 - 75.2 %) 85.7 H Lymphocytes % (20.5 - 51.1 %) 4.8 L Monocytes % (1.7 - 9.3 %) 8.5 Eosinophils % (0 - 5 %) 0.9 Basophils % (0.0 - 2.0 %) 0.1 Absolute Granulocytes (1.4 - 6.5 /CUMM) 9.5 H Absolute Lymphocytes (1.2 - 3.4 /CUMM) 0.5 L Absolute Monocytes (0.10 - 0.60 /CUMM) 0.9 H Absolute Eosinophils (0.0 - 0.7 /CUMM) 0.1 Absolute Basophils (0.0 - 0.2 /CUMM) 0 PUBS MCHC (33.0 - 37.0 G/DL) 33.8 Assessment and problem list * Metastatic non-small cell lung cancer * History of brain and bone metastases from non-small cell lung cancer * Hx pulmonary embolism Plan * Patient stable for discharge * CMR was reviewed and plan is to continue Lovenox and other medications.
--- NOTE | 2016-08-13 19:40 | Discharge Summary ---
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 At the beginning of July 2016 patient underwent repeat MRI for brain metastases and found to have right sigmoid sinus thrombosis and was switched to Lovenox 80 mg daily. She presented from home after an episode of mild shortness of breath with an episode of nausea and one episode of nonbloody vomiting found to have subsegmental PE without no significant hypoxia on admission are no significant clot burden suggestive of incidental finding rather than clinical pulmonary embolism. #Pulmonary embolism Patient did not have any significant hypoxia, tachypnea or tachycardia on admission and her history of recent blood clots in her heart resulting in cerebellar stroke and subsequently found to have recent right sigmoid sinus thrombosis requiring to change anticoagulation to Lovenox and now CTAs finding of subsegmental PE, likely suggest incidental finding of pulmonary embolism of indeterminant age rather than acute PE as patient was on therapeutic dose of Lovenox. It is unlikely that this is the etiology of her dypnea, progression of her underlying metastatic disease is a potential etiology for her dyspnea. -patient was admittted to telemetry -Pulmonology consultation was obtained, Dr. Cordova -Lovenox with increased to 50 mg SQ BID instead of 80 mg SQ daily -Patient received Albuterol inhaler with spacer for wheezing -Patient refused nebolizers as it makes her anexious -Patient remained on 2L oxygen with saturation above 92 % #Anexiety -Xanaxa 0.25 mg to Q6 PRN was iniated -Patient was discharged on Xanaxa 0.25 mg TID PRN for anexiety #Metastatic lung cancer: CXR with persistent left lung volume loss secondary to lymphadenopathy and associated narrowing of the left mainstem bronchus. CTA with increasing right lower lobe pulmonary nodule and left-sided mediastinal and hilar adenopathy. Left upper lobe obstruction with left upper lobe atelectasis -Oncology consultaion was obtained, Dr. Robins -Patient continued to have radiotherapy throughout her hospital stay, was evaluated by Dr. Gracia -Port cath was palced on Monday08/12/[address] Kunz #Takotsubo cardiomyopathy: -Hold off on repeating ECHO as patient had repeat ECHO at [facility] 2 weeks ago -Toprol XL 50 mg PO QD and losartan 12.5 mg PO QD #Chronic pain: Secondary to metastatic lung cancer -Morphine 15 mg PO Q4H pRN -Scheduled Miralax and PRN Senna and Dulcolax to prevent opioid-induced constipation CTA abdomen and chest 08/07/16 IMPRESSION: Stable dilatation of the ascending thoracic aorta. No acute thoracic aortic dissection. Question old chronic dissection of the proximal abdominal aorta. This is stable in size with increasing thrombus compared to June 2016 exam. 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 The size of the aortic dilatation does not appear appreciably changed measuring maximum 3 x 3.2 cm. 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 Arcuate type celiac axis stenosis. Narrowed left lower lobe pulmonary artery from increasing adenopathy. Small subsegmental posterior basal segment right lower lobe pulmonary emboli. CHEST: Interval decrease in size in the superior segment left lower lobe nodule compared to June 2016. There is increasing left-sided mediastinal and hilar adenopathy. There is increased narrowing of the left upper lobe bronchus and left upper lobe atelectasis. Increasing right lower lobe pulmonary nodule. ABDOMEN: Diastasis of the rectus muscles. Atrophic right kidney. Right renal cysts. Interval increase in size and number of bony lesions compared to previous CT. Chest X ray 08/08/16 IMPRESSION: Persistent left lung volume loss secondary to previously noted prominent lymph nodes within the mediastinum and left hilum with associated narrowing of the left mainstem bronchus. No new airspace consolidation is identified. The right lung is grossly clear. No pleural effusions or pneumothoraces. Allergies: Coded Allergies: oxycodone (From Percocet) (UNKNOWN 12/01/15) PERCOCET PER ANTIBIOTIC ORDER SHEET OF 12/01/15 (SJS) Disposition Summary Disposition Principal Diagnosis: NSCLC with metasteses Additional Diagnosis: PE, subsegmental PE of indeterminate chronicity Discharge Disposition: home or self care Discharge Instructions General Discharge Information Code Status: Full Code Patient's Diet: Heart healthy Patient's Activity: As tolerated Follow-Up Instructions/Appts: Please follow-up with your PCP after discharge Please follow-up with Dr. Curry heme oncology after discharge Please follow-up with Dr. Cordova pulmonology after discharge please follow up with cardiology Dr. burns one month after discharge Medications at Discharge Discharge Medications: Stop taking the following medications: Enoxaparin Sodium (Lovenox) 80 MG/0.8 ML SYRINGE Inject into fatty tissue DAILY Continue taking these medications: Aspirin (Ecotrin*) 81 MG TABLET. 1 Tablet ORAL DAILY Comments: LAST TAKEN: 08/13/16 9:00 AM Furosemide (Lasix) 20 MG TABLET 3 Tablet ORAL DAILY Comments: LAST TAKEN: 08/13/16 09:00 AM Metoprolol Succinate (Metoprolol Succinate) 50 MG TAB.ER.24H 1 Tablet ORAL DAILY Comments: LAST TAKEN: 08/13/16 9:00 AM Pantoprazole Sodium (Pantoprazole Sodium) 40 MG TABLET. 1 Tablet ORAL DAILY Comments: OMEPRAZOLE GIVEN SUBSTITUTE LAST TAKEN: 08/10/16 6:00 AM Atorvastatin Calcium (Lipitor) 80 MG TABLET 1 Tablet ORAL DAILY Comments: LAST TAKEN: 08/13/16 9:00 AM Losartan Potassium (Cozaar) 25 MG TABLET 0.5 Tablet ORAL DAILY Comments: LAST TAKEN: 08/13/16 9:00 AM Citalopram Hydrobromide (Citalopram HBr) (Unknown Strength) TABLET Unknown Dose ORAL DAILY Comments: NOT TAKEN IN HOSPITAL Multivit-Min/FA/Lycopen/Lutein (Centrum Silver Tablet) 0.4 MG-300 MCG-250 MCG TABLET 1 Tablet ORAL DAILY Comments: NOT TAKEN IN HOSPITAL Hydrocodone Bit/Homatrop Me-Br (Hydrocodone-Homatropine Syrup) (Unknown Strength ) SYRUP Unknown Dose ORAL Q4H as needed for COUGH Comments: NOT TAKEN IN HOSPITAL Morphine Sulfate (Morphine Sulfate) 15 MG TABLET 1 Tablet ORAL Q4H as needed for PAIN Comments: LAST TAKEN: 08/10/16 11:50 PM Start taking the following new medications: Alprazolam (Xanax) 0.25 MG TABLET 1 Tablet ORAL THREE TIMES DAILY as needed for ANXIETY Qty = 30 No Refills Polyethylene Glycol 3350 (Miralax) 17 GRAM/DOSE POWDER 17 Gram ORAL DAILY as needed for CONSTIPATION Qty = 255 No Refills Instructions: mix with water, juice, soda, coffee or tea Enoxaparin Sodium (Lovenox) 60 MG/0.6 ML SYRINGE 50 Milligram Inject into fatty tissue TWICE DAILY Days = 30 No Refills Copies To: KIM LEON,ELAINE Infante; MARA LEON,MARYSOL Ward; PATY LEON,CECILY Alvarez; YAEL LEON,JOSÉ MIGUEL Ward; KAREEM LEON,ALESHIA Beckett MD Review Statement Documenting Attending: MAKENZIE BALDERAS MD Other Findings: The patient was seen and discussed with the house staff. Agree with the plan of care as outlined.
== END 2016-08-13 12:10 | DRG 181 ==
LOC: ERH 12:32 → ERHI 16:51 → 1NO 16:51
PROVIDERS: Dermatology; Internal Medicine; Internal Medicine Cardiovascular Disease; Physician Assistant Medical; Student in an Organized Health Care Education/Training Program; ADMIT Internal Medicine
PROC: 3E033GC Introduction of Other Therapeutic Substance into Peripheral Vein, Percutaneous Approach (ICD-10-PCS; principal; 2016-08-12)
DX: C34.90 Malignant neoplasm of unspecified part of unspecified bronchus or lung (principal); C78.7 Secondary malignant neoplasm of liver and intrahepatic bile duct; C79.31 Secondary malignant neoplasm of brain; C79.51 Secondary malignant neoplasm of bone; I51.81 Takotsubo syndrome; I10 Essential (primary) hypertension; E78.5 Hyperlipidemia, unspecified; G43.909 Migraine, unspecified, not intractable, without status migrainosus; Z86.711 Personal history of pulmonary embolism; Z79.01 Long term (current) use of anticoagulants
CPT/HCPCS: 1NP; 36415; 74175; 77336; 77387-TC; 77412-TC; 77417-TC; 82436; 93005; 93010; 96374; 97001-GP; 97110-GO; 97116-GO; 97161-GP; 99291; C1788; J0690; J1644; J1650; J3490; J7060

== ENCOUNTER 2016-09-29 15:03 | Emergency (ER) | payer OTHER, MEDICARE ==
[~2016-09-29] VITALS: Ht 154.9 cm; Wt 49.0 kg
[~2016-09-29 15:03] MED LIST changes: +LOVENOX100 MG/1 M SC; +LOVENOX60 MG/0.1 SC; +MIRALAX119 GM PO; +XANAX0.25 M1 PO
--- NOTE | 2016-09-29 15:40 | ED DYSPNEA/ASTHMA COMPLAINT ---
History of Present Illness General Chief Complaint: Dyspnea (COPD, CHF, Other) Stated Complaint: SOB Source: patient, family, old records Exam Limitations: no limitations Allergies Coded Allergies: oxycodone (From Percocet) (UNKNOWN 12/01/15) PERCOCET PER ANTIBIOTIC ORDER SHEET OF 12/01/15 (SJS) Reconcile Medications Alprazolam 0.5 MG TABLET 1 TAB PO TID PRN ANXIETY (Reported) Aspirin (Ecotrin*) 81 MG TABLET.DR 1 TAB PO DAILY HEART/BLOOD (Reported) Atorvastatin Calcium (Lipitor) 80 MG TABLET 1 TAB PO DAILY CHOLESTEROL ( Reported) Citalopram Hydrobromide (Citalopram HBr) (Unknown Strength) TABLET (Unknown Dose) PO DAILY MENTAL HEALTH (Reported) Dexamethasone 4 MG TABLET 4 MG PO BID UNKNOWN (Reported) Enoxaparin Sodium (Lovenox) 60 MG/0.6 ML SYRINGE 50 MG SC BID Blood thinner Furosemide (Lasix) 20 MG TABLET 3 TAB PO DAILY DIURETIC (Reported) Hydrocodone Bit/Homatrop Me-Br (Hydrocodone-Homatropine Syrup) (Unknown Strength ) SYRUP 5 ML PO Q4-6H PRN COUGH (Reported) Levofloxacin (Levaquin) 750 MG TABLET 1 TAB PO DAILY pneumonia Losartan Potassium (Cozaar) 25 MG TABLET 0.5 TAB PO DAILY HEART/BP (Reported) Metoprolol Succinate 50 MG TAB.ER.24H 1 TAB PO DAILY HEART/BP (Reported) Morphine Sulfate 15 MG TABLET 1 TAB PO Q4H PRN PAIN (Reported) Multivit-Min/FA/Lycopen/Lutein (Centrum Silver Tablet) 0.4 MG-300 MCG-250 MCG TABLET 1 TAB PO DAILY SUPPLEMENT (Reported) Nystatin 100,000 UNIT/ML ORAL.SUSP 5 ML PO 4 TIMES/DAY UNKNOWN (Reported) Ondansetron HCl (Zofran) 8 MG TABLET 1 TAB PO Q8H PRN NAUSEA (Reported) Pantoprazole Sodium 40 MG TABLET.DR 1 TAB PO BID GI (Reported) Polyethylene Glycol 3350 (Miralax) 17 GRAM/DOSE POWDER 17 GM PO DAILY PRN CONSTIPATION mix with water, juice, soda, coffee or tea Prochlorperazine Maleate (Compazine) 10 MG TABLET 1 TAB PO Q6H PRN NAUSEA ( Reported) Sucralfate (Carafate) 1 GRAM/10 ML ORAL.SUSP 10 ML PO 4 TIMES/DAY GI ( Reported) 1 hour before food and bedtime Warfarin Sodium (Coumadin) 2.5 MG TABLET 1 TAB PO DAILY BLOOD THINNER ( Reported) Triage Note: PT TO TRIAGE WITH C/O [id number], DIARRHEA YESTERDAY, NAUSEA, VOMITINGx1 TODAY. PT DENIES CHEST PAIN,DENIES ABD PAIN, AFEBRILE, VSS. HX OF LUNG CA WITH METASTASIS,CVA,HTN. O2SAT 95% ON O2 2L NC, PT USES O2 2L NEEDED. PT TO KLEMME FOR EKG. Triage Nurses Notes Reviewed? yes HPI: Patient is a 71-year-old female brought in by her family for evaluation of dyspnea and weakness. Symptoms onset yesterday. Cough with sputum production. Yesterday cough had blood-tinged sputum, today sputum has been clear. One episode of diarrhea yesterday, one episode of vomiting this morning. Dyspnea is moderate to severe at rest, worsens with minimal exertion. Patient with history of pulmonary embolism is on Lovenox, has been compliant with her Lovenox therapy. Patient was scheduled to have radiation and chemotherapy for lung cancer yesterday but was unable to do so due to her symptoms. Patient denies fevers. (PADMA ALICIA,JONO) Vital Signs & Intake/Output Vital Signs & Intake/Output Vital Signs Date Time Temp Pulse Resp B/P Pulse O2 O2 Flow FiO2 Ox Delivery Rate 09/29 1848 92 Nasal 2.0L Cannula 09/29 1703 88 24 92 Nasal 2.0L Cannula 09/29 1605 94 Nasal 2.0L Cannula 09/29 1505 98.6 98 18 115/78 95 Nasal 2.0L Cannula Past History Travel History Traveled to [place] past 21 day No Medical History Any Pertinent Medical History? see below for history Neurological: CVA, HEADACHES PER PT EENT: NONE Cardiovascular: cardiomyopathy, hypertension Respiratory: NONE Gastrointestinal: NONE Hepatic: NONE Renal: NONE Musculoskeletal: NONE Psychiatric: NONE Endocrine: NONE Blood Disorders: NONE Cancer(s): lung cancer, WITH BRAIN and bony [facility] PSYCHOLOGIST/Reproductive: NONE History of MRSA: No History of VRE: No History of CDIFF: No Influenza Vaccine: 05/16/16 Surgical History Surgical History: N (abdominal aneurysm repair) Psychosocial History Who do you live with Spouse Services at Home None What is your primary language Haitian Tobacco Use: Quit >30 days ago Family History Hx Contributory? No (JONO OLIVARES) Review of Systems Review of Systems Constitutional: Reports: chills, malaise, weakness. EENTM: Reports: no symptoms. Respiratory: Reports: cough, hemoptysis (yesterday, none today), short of breath. Cardiovascular: Denies: chest pain. GI: Reports: diarrhea, nausea, vomiting. Denies: abdominal pain. Genitourinary: Reports: no symptoms. Musculoskeletal: Reports: no symptoms. Skin: Reports: no symptoms. Neurological/Psychological: Denies: headache. Hematologic/Endocrine: Denies: bruising, bleeding. Immunologic/Allergic: Reports: other (on chemotherapy). (JONO OLIVARES) Physical Exam Physical Exam General Appearance: alert, awake, ill appearing Head: atraumatic, normal appearance Eyes: Bilateral: normal appearance, PERRL, EOMI. Ears, Nose, Throat: normal pharynx, normal ENT inspection, hearing grossly normal Neck: normal inspection, supple, full range of motion Respiratory: mild diffuse rhonchi Cardiovascular: regular rate/rhythm (no appreciable murmur) Gastrointestinal: soft, non-tender Extremities: normal inspection, normal capillary refill, normal range of motion Neurologic/Psych: awake, alert, oriented x 3 Skin: intact, normal color, warm/dry Lymphatic: no anterior cervical debbie Core Measures ACS in differential dx? Yes ASA ordered for poss ACS? No-ACS ruled out Severe Sepsis Present: No Septic Shock Present: No (JONO OLIVARES) Progress Differential Diagnosis: asthma, AMI, bronchitis, pulmonary embolism, pneumonia, unstable angina, sepsis, metastatic cancer Diagnostic Imaging: Viewed by Me: Radiology Read. Discussed w/RAD: Radiology Read. Radiology Impression: PATIENT: ALISIA WILBURN PRESENT AGE: 71 PATIENT ACCOUNT NO: [id number] : 44 LOCATION: [facility] ORDERING PHYSICIAN: JONO ALICIA SERVICE DATE: 09/29/162597 EXAM TYPE: RAD - XRY-CHEST XRAY, PA AND LATERAL EXAMINATION: XR CHEST CLINICAL INFORMATION: 71- year-old female patient with cough, weakness, and productive sputum. History of lung cancer, superior segment of left lower lobe. COMPARISON: CT of the chest on 08/07/2016. (Mass in the superior segment of the left lower lobe, centrilobular emphysema, mediastinal and hilar adenopathy)). Subsequent chest x-rays on August 08, and 08/12/2016. TECHNIQUE: 2 views of the chest were obtained. FINDINGS: Relative oligemia affects the left lower lobe due to the metastatic disease in the left hilum. The partial left lower lobe atelectasis has cleared. The primary lesion in the superior segment of the left lower lobe is difficult to discern by plain film. There are generalized increased interstitial opacities in the right lung. This is new since 08/12/2016. The heart is normal in size, this could represent interstitial edema or an atypical infection. There is no sign of pleural effusion. The regional skeletal structures are unremarkable. A CT compatible central venous port has been directed from the right internal jugular vein to the cavoatrial junction. IMPRESSION: 1. Increased interstitial opacities in the right lung. Differential diagnosis includes edema or atypical infection. 2. Relative oligemia of the left lower lobe due to central obstruction and hilar adenopathy. DICTATED BY: PHIL FRYE MD DATE/TIME DICTATED:09/29/161613 [employer] SAL[employer] REPRESENTATIVE:[place] DATE/TIME TRANSCRIBED:1613 CONFIDENTIAL, DO NOT COPY WITHOUT APPROPRIATE AUTHORIZATION. < Electronically signed in Other Vendor System> SIGNED BY: PHIL FRYE MD 09/29/16 1639 Initial ED EKG: normal sinus rhythm 85 bpm normal axis, Q waves in the inferior leads that are similar to previous EKG, nonspecific ST/T-wave abnormalities that are slightly improved from previous Prior EKG: changed (nonspecific T-wave changes) Rhythm Strip: normal sinus rhythm (JONO OLIVARES) Plan of Care: Orders Procedure Date/time Status Regular Diet 09/30 B Active Vital Signs 09/29 1907 Complete Activity/Ambulation 09/29 1907 Complete RAPID VIRAL INFLUENZA A 09/29 1643 Complete BLOOD CULTURE 09/29 1544 Active Telemetry/Pharmacist Per Diem 09/29 1541 Active TROPONIN LEVEL 09/29 1541 Complete PARTIAL THROMBOPLASTIN TIME 09/29 1541 Complete PROTHROMBIN TIME 09/29 1541 Complete COMPREHENSIVE METABOLIC PANEL 09/29 1541 Complete CBC WITHOUT DIFFERENTIAL 09/29 1541 Complete B-TYPE NATRIURETIC PEP (BNP) 09/29 1541 Complete TYPE & SCREEN (NOT X-MATCH) 09/29 1541 Complete EKG 09/29 1515 Active Current Medications Sig/Georgi Start time Last Medication Dose Stop Time Status Admin Azithromycin 500 MG ONCE ONE 09/29 1930 AC (Zithromax) 09/29 2028 Dextrose/Water 250 ML (D5W) Laboratory Tests 09/29/16 1648: Anion Gap 11, Estimated GFR > 60, BUN/Creatinine Ratio 26.0 H, Glucose 179 H, Calcium 8.0 L, Total Bilirubin 0.6, AST 39 H, ALT 69 H, Alkaline Phosphatase 161 H, Troponin I 0.08, Nfx-S-Osaleahhhjw Pept 1170 H, Total Protein 5.5 L, Albumin 3.1 L, Globulin 2.4, Albumin/Globulin Ratio 1.3, PT 11.8, INR 1.13, APTT 34, CBC w Diff NO MAN DIFF REQ, RBC 2.84 L, MCV 89.6, MCH 30.0, RDW 18.9 H, MPV 8.1, Gran % 93.7 H, Lymphocytes % 3.8 L, Monocytes % 2.3, Eosinophils % 0.2, Basophils % 0 L, Absolute Granulocytes 5.2, Absolute Lymphocytes 0.2 L, Absolute Monocytes 0.1 L, Absolute Eosinophils 0, Absolute Basophils 0, PUBS MCHC 33.5 Microbiology 09/29 1750 NASOPHARYN: Influenza Virus A & B Rapid Smear - COMP 09/29 1704 BLOOD: Blood Culture - RECD 09/29 1648 BLOOD: Blood Culture - RECD 09/29/2016 4:00:31 PM: Discussed with Dr. Garcia Patient denies feeling improved after nebulizer treatment. Discussed results of chest x-ray with patient and her family. CT scan ordered. Patient afebrile, white blood cell count normal. Antibiotics deferred with CT scan pending. 09/29/2016 7:44:10 PM: Results discussed extensively with the patient and her family. Patient and her family would prefer outpatient treatment given her medical history and the amount of time she spent in hospitals recently. Shared decision making utilized. Patient has supplemental oxygen at home. Discussed with the family that if at any time there is any worsening of condition to return to the emergency Department immediately Discussed with Dr. Dewitt covering for Dr. Robins: Have patient's family contact Dr. Griggs first thing in the morning. (HEJONO VILLASENOR) Departure Departure Disposition: HOME OR SELF CARE Condition: Stable Clinical Impression Primary Impression: Obstructive pneumonia Secondary Impressions: Hypokalemia, Hyponatremia Referrals: MARA LEON,MARYSOL CONLEY MD,JOSÉ MIGUEL Ward (PCP/Family) Additional Instructions: Start taking the Levofloxacin tomorrow morning. Call Dr. Robins when the office opens tomorrow morning to discuss Alisia's condition and for further evaluation. Wear the supplemental oxygen to aid with breathing. Return to the emergency Department immediately if breathing worsening, unable to stay hydrated, or any worsening of condition. Departure Forms: Customer Survey General Discharge Information Prescriptions: Current Visit Scripts Levofloxacin (Levaquin) 1 TAB PO DAILY #7 TAB (JONO OLIVARES) PA/[employer] Co-Sign Statement Statement: ED Attending supervision documentation- [X] I saw and evaluated the patient. I have also reviewed all the pertinent lab results and diagnostic results. I agree with the findings and the plan of care as documented in the PA's/[employer]'s documentation. [] I have reviewed the ED Record and agree with the PA's/[employer]'s documentation. [] Additions or exceptions (if any) to the PAs/[employer]'s note and plan are summarized below: [] (PROSPER LEON,AURA Rasheed) Critical Care Note Critical Care Note Critical Care Time: non-applicable (JONO OLIVARES)
[2016-09-29] MEDS ORDERED: ALPRAZOLAM0.5 M4 PO (16:22)
--- NOTE | 2016-09-29 16:39 | RADIOLOGY REPORT ---
EXAMINATION: XR CHEST CLINICAL INFORMATION: 71-year-old female patient with cough, weakness, and productive sputum. History of lung cancer, superior segment of left lower lobe. COMPARISON: CT of the chest on 08/07/2016. (Mass in the superior segment of the left lower lobe, centrilobular emphysema, mediastinal and hilar adenopathy)). Subsequent chest x-rays on August 08, and 08/12/2016. TECHNIQUE: 2 views of the chest were obtained. FINDINGS: Relative oligemia affects the left lower lobe due to the metastatic disease in the left hilum. The partial left lower lobe atelectasis has cleared. The primary lesion in the superior segment of the left lower lobe is difficult to discern by plain film. There are generalized increased interstitial opacities in the right lung. This is new since 08/12/2016. The heart is normal in size, this could represent interstitial edema or an atypical infection. There is no sign of pleural effusion. The regional skeletal structures are unremarkable. A CT compatible central venous port has been directed from the right internal jugular vein to the cavoatrial junction. IMPRESSION: 1. Increased interstitial opacities in the right lung. Differential diagnosis includes edema or atypical infection. 2. Relative oligemia of the left lower lobe due to central obstruction and hilar adenopathy.
[2016-09-29] MEDS ORDERED: NYSTATIN100000 UNI PO (16:49)
[2016-09-29] MEDS ORDERED: CARAFATE1 GM/10 M1 PO (16:49)
[2016-09-29] MEDS ORDERED: DEXAMETHASONE4 M1 PO (16:50)
[2016-09-29] MEDS ORDERED: COUMADIN2.5 M1 PO (16:51)
[2016-09-29] MEDS ORDERED: COMPAZINE10 M1 PO (16:52)
[2016-09-29] MEDS ORDERED: ZOFRAN8 M1 PO (16:52)
[2016-09-29 17:01] LABS: ABSOLUTE BASOPHIL COUNT 0 /CUMM (0.0-0.2); ABSOLUTE EOSINOPHIL COUNT 0 /CUMM (0.0-0.7); ABSOLUTE GRANULOCYTE CT 5.2 /CUMM (1.4-6.5); ABSOLUTE LYMPH COUNT 0.2 /CUMM (1.2-3.4); ABSOLUTE MONOCYTE COUNT 0.1 /CUMM (0.10-0.60); BASOPHIL % 0 % (0.0-2.0); EOSINOPHIL % 0.2 % (0-5); HEMATOCRIT 25.4 % (37-47); MEAN CORPUSCULAR HGB CONC 33.5 G/DL (33.0-37.0); MEAN CORPUSCULAR VOLUME 89.6 FL (81.0-99.0); MEAN PLATELET VOLUME 8.1 FL (7.4-10.4); PLATELET COUNT 61 /CUMM (130-400); RBC DISTRIBUTION WIDTH 18.9 % (11.5-14.5); RED BLOOD CELL CT 2.84 /CUMM (4.20-5.40); WHITE BLOOD CELL COUNT 5.6 /CUMM (4.8-10.8)
[2016-09-29 17:10] LABS: PT 11.8 SEC (9.4-12.5); PTT 34 SEC (25-37)
[2016-09-29 17:18] LABS: GRANULOCYTE % 93.7 % (42.2-75.2)
--- NOTE | 2016-09-29 19:30 | CT SCAN REPORT ---
EXAMINATION: CT ANGIOGRAM OF THE CHEST WITH AND WITHOUT CONTRAST (CT PULMONARY ANGIOGRAM FOR PE) CLINICAL INFORMATION: Reason for Study:
Presumptive Dx: R/O PE/PNEUMONIA/EDEMA
Signs Symptoms: DYSPNEA, WEAKNESS, ABNORMAL CHEST X-RAY. HX LUNG CA
COMPARISON: Chest x-ray done earlier today. CTA of the chest on 08/07/2016. TECHNIQUE: Prior to contrast administration, noncontrast localization images were obtained. Subsequently, multidetector volumetric imaging was performed from the thoracic inlet to below the diaphragms following the administration of 51 mL Optiray 350 intravenous contrast. No contrast reaction reported Sagittal, coronal, and MIP oblique sagittal reformatted images were obtained on the CT workstation, uploaded to PACS, and reviewed. Total exam dose-length product 192 mGy-cm FINDINGS: QUALITY OF STUDY/CONTRAST BOLUS: Excellent. PULMONARY ARTERIES: No central or segmental pulmonary emboli. However, the bulky left hilar adenopathy shows significant encasement of the segmental branches of the left pulmonary artery. At present there is no occlusions of these branches. THORACIC AORTA: The ascending aortic aneurysm is stable. LUNG: The spiculated primary cancer abutting the major fissure in the superior segment of the left lower lobe measures 2.2 cm in width 1.5 cm in AP diameter, and approximately 1.1 cm in cephalocaudad dimension. There is lymphatic spread of this tumor along the major fissure and also along the lymphatic draining to the left hilum. Because of the encasement of branches of the left lower lobe arteries, there is relative oligemia of the left lower lobe compared to the left upper lobe and also the right lung. A lobulated metastatic focus in the right lower lobe has doubled in size from 8 mm to 1.6 cm. Series 3, image 38. Other nodular metastases involving the right lung are encountered. 6 mm nodule series 3 image 30. Pleural-based 9 mm nodule. Series 3 image 22. A 1.2 cm diameter nodule in the posterior right costophrenic sulcus. Series 3, image 47. The right upper lobe shows considerable deterioration with interstitial and airspace opacities occupying most of the posterior apical segment and portions of the superior segment of the right lower lobe. The differential diagnosis is between lymphangitic spread of cancer versus pneumonia. Overall, the lung findings are superimposed upon a substrate of emphysema. PLEURA: No pleural effusion or pneumothorax. MEDIASTINUM: There is apparent thrombus in the left atrial appendage. Bulky tumor adenopathy invades the left hilum and the adjacent mediastinum. There is encasement of the left mainstem bronchus. Tumor spread is into the AP window just to the left of the coco. Several small lymph nodes are present in the pretracheal space. A right hilar node is present No evidence of septal bowing or right heart strain. CHEST WALL/AXILLA: No axillary or internal mammary lymphadenopathy. OSSEOUS STRUCTURES: There is osteolytic bone destruction involving the anterior aspect of the T4 vertebral body representing spread of tumor to this location. UPPER ABDOMEN: A large metastatic lymph node in the ap hepatis has increased in size from 2 cm to 3.3 cm. No reflux of contrast into the hepatic veins to suggest elevated right heart pressures. IMPRESSION: 1. No evidence of pulmonary embolism. 2. Significant encasement of segmental branches of the left pulmonary artery by tumor metastases to the hilum. 3. Increasing metastatic nodules to the right lung. 4. Considerable mixed interstitial and airspace opacity occupying the right upper lobe and portions of the right lower lobe. The differential diagnosis is that of lymphatic spread of tumor versus an infection. 5. Metastases to bone, for example the vertebral body at T4. 5. Metastatic lymph node in the ap hepatis increasing significantly in size. VTE: Negative.
[2016-09-29] MEDS ORDERED: LEVAQUIN750 M1 PO (19:48)
[2016-09-29 21:43] VITALS: BP 116/68
== END 2016-09-29 21:44 ==
LOC: ERH 15:03
PROVIDERS: Physician Assistant
DX: J18.9 Pneumonia, unspecified organism (principal); E87.6 Hypokalemia; E87.1 Hypo-osmolality and hyponatremia; Z87.891 Personal history of nicotine dependence; Z79.82 Long term (current) use of aspirin; Z79.01 Long term (current) use of anticoagulants
CPT/HCPCS: 1263; 87040; 87804; 87804-59; 93005; 93010; 96374; 96375; J0456; J0696; J2405; J7060